=== PATIENT | male | born 1955 | race Caucasian/White ===

== ENCOUNTER → 2016-11-30 | Outpatient (CLI) | payer BC ==
[2016-11-30 10:55] LABS: CH 29.9; CHCM 33.9; HDW 2.77; HGB 14.3 gm/dL (13.0-17.5); MCH 29.5 pg (25.0-35.0); MCHC 33.3 g/dL (31.0-37.0); MCV 88.7 fL (80.0-100.0); Mean Platelet Volume 7.3; RBC 4.85 m/uL (4.30-5.90); RDW 12.8 % (11.5-15.5); WBC 4.1 k/uL (3.8-10.6)
[2016-11-30 11:04] LABS: AST 37 U/L (17-59); Alkaline Phosphatase 65 U/L (38-126); Anion Gap 10 mmol/L; Blood Urea Nitrogen 17 mg/dL (9-20); Carbon Dioxide 26 mmol/L (22-30); Chloride 104 mmol/L (98-107); Cholesterol 149 mg/dL (<200); Glucose 111 mg/dL (74-99); HDL Cholesterol 45 mg/dL (40-60); Non-African American GFR(MDRD) >60 (>60 ml/min/1.73 sqM); Potassium 5.1 mmol/L (3.5-5.1); Sodium 140 mmol/L (137-145); Total Bilirubin 0.7 mg/dL (0.2-1.3); Total Protein 7.7 g/dL (6.3-8.2); Triglycerides 90 mg/dL (<150)
[2016-11-30 11:08] LABS: ALT 56 U/L (21-72)
[2016-11-30 11:47] LABS: Hepatitis C Virus IgG Index 0.01
[2016-11-30 11:48] LABS: Hepatitis C Virus IgG Ab Negative (Negative)
[2016-11-30 12:45] LABS: Prostate Specific Antigen <0.06 ng/mL (0.00-4.00)
[2016-11-30 19:32] LABS: Magnesium 1.9 mg/dL (1.6-2.3)
== END | disposition home or self-care (01) ==
LOC: LABWHC1 09:51
PROVIDERS: ATTEND Family Medicine
DX: I48.0 Paroxysmal atrial fibrillation (principal); Z51.81 Encounter for therapeutic drug level monitoring
CPT/HCPCS: 36415; 80053; 80061; 83735; 84153; 85027; 86803

== ENCOUNTER → 2017-08-15 | Outpatient (CLI) | payer BC ==
[2017-08-15 17:30] LABS: Anion Gap 10 mmol/L; Blood Urea Nitrogen 20 mg/dL (9-20); Calcium 9.3 mg/dL (8.4-10.2); Carbon Dioxide 25 mmol/L (22-30); Chloride 105 mmol/L (98-107); Glucose 87 mg/dL (74-99); Magnesium 2.1 mg/dL (1.6-2.3); Non-African American GFR(MDRD) >60 (>60 ml/min/1.73 sqM); Potassium 4.9 mmol/L (3.5-5.1); Sodium 140 mmol/L (137-145)
== END | disposition home or self-care (01) ==
LOC: LABWHC1 16:31
PROVIDERS: ATTEND Internal Medicine Clinical Cardiac Electrophysiology
DX: I48.91 Unspecified atrial fibrillation (principal); I10 Essential (primary) hypertension; Z79.899 Other long term (current) drug therapy
CPT/HCPCS: 36415; 80048; 83735

== ENCOUNTER → 2018-01-07 | Outpatient (CLI) | payer BC ==
[2018-01-07 09:13] LABS: HCT 44.3 % (39.0-53.0); HGB 14.5 gm/dL (13.0-17.5); MCH 28.8 pg (25.0-35.0); MCHC 32.7 g/dL (31.0-37.0); Mean Platelet Volume 6.9; Platelet Count 168 k/uL (150-450); RBC 5.03 m/uL (4.30-5.90); WBC 4.8 k/uL (3.8-10.6)
[2018-01-07 10:26] LABS: Prostate Specific Antigen <0.10 ng/mL (0.00-4.00)
[2018-01-07 10:43] LABS: ALT 22 U/L (21-72); AST 29 U/L (17-59); Albumin 4.6 g/dL (3.5-5.0); Alkaline Phosphatase 53 U/L (38-126); Anion Gap 13 mmol/L; Blood Urea Nitrogen 18 mg/dL (9-20); Calcium 10.3 mg/dL (8.4-10.2); Carbon Dioxide 27 mmol/L (22-30); Chloride 103 mmol/L (98-107); Cholesterol 112 mg/dL (<200); Glucose 109 mg/dL (74-99); HDL Cholesterol 42 mg/dL (40-60); LDL Cholesterol,Calculated 54 mg/dL (0-99); Potassium 5.2 mmol/L (3.5-5.1); Sodium 143 mmol/L (137-145); Total Bilirubin 0.7 mg/dL (0.2-1.3); Total Protein 7.6 g/dL (6.3-8.2); Triglycerides 82 mg/dL (<150)
== END ==
LOC: LABWHC1 08:42
PROVIDERS: ATTEND Family Medicine
DX: Z00.01 Encounter for general adult medical examination with abnormal findings (principal); R00.1 Bradycardia, unspecified
CPT/HCPCS: 36415; 80053; 80061; 84153; 84443; 85027

== ENCOUNTER → 2018-08-16 | Outpatient (CLI) | payer BC ==
[2018-08-16 11:07] LABS: ALT 27 U/L (21-72); AST 25 U/L (17-59); Albumin 4.2 g/dL (3.5-5.0); Alkaline Phosphatase 52 U/L (38-126); Anion Gap 7 mmol/L; Blood Urea Nitrogen 23 mg/dL (9-20); Calcium 9.5 mg/dL (8.4-10.2); Carbon Dioxide 27 mmol/L (22-30); Chloride 109 mmol/L (98-107); Cholesterol 92 mg/dL (<200); Glucose 111 mg/dL (74-99); HDL Cholesterol 33 mg/dL (40-60); LDL Cholesterol,Calculated 48 mg/dL (0-99); Potassium 5.2 mmol/L (3.5-5.1); Sodium 143 mmol/L (137-145); Total Bilirubin 0.7 mg/dL (0.2-1.3); Triglycerides 54 mg/dL (<150)
== END | disposition home or self-care (01) ==
LOC: LABWHC1 09:23
PROVIDERS: ATTEND Family Medicine
DX: I48.91 Unspecified atrial fibrillation (principal)
CPT/HCPCS: 36415; 80053; 80061

== ENCOUNTER → 2018-09-25 | Outpatient (CLI) | payer BC ==
--- NOTE | 2018-09-25 20:20 | CONS ---
CONSULTATION DATE OF SERVICE: 09/25/2018 This patient is a 62-year-old gentleman who has [facility] for obstructive sleep apnea-hypopnea syndrome. HISTORY OF PRESENT ILLNESS/SLEEP-WAKE EVALUATION: Patient was diagnosed with obstructive sleep apnea 6 years ago. Since that time he has been on treatment with CPAP every night for the whole night. According to the patient, he does not snore with the CPAP and basically does not wake up from sleep while he is using CPAP. In the morning patient denies any sleepiness. Merrill Sleepiness Scale is 2, which is in normal range. No TV in bedroom. His weight is about 10 pounds up for the last 5 years. I checked his CPAP unit. It showed that the patient is using it every night, 100% of the time. Average usage is 7.1 hours. CPAP pressure is 10 cm of water. The machine is old; no information about apnea-hypopnea index. Merrill Sleepiness Scale is 2. PAST MEDICAL HISTORY: 1. History of atrial fibrillation. Last ablation about 3 years ago. Since that time, patient has been in sinus rhythm with some kind of bradycardia. 2. Hypertension. 3. Acid reflux. 4. Prostate cancer. 5. Osteoarthritis of the hands, back, hips. PAST SURGICAL HISTORY: 1. Back fusion. 2. Neck fusion. 3. Heart ablation. 4. Surgical treatment of prostate cancer. MEDICATIONS: 1. Toprol. 2. Celebrex. 3. Lasix. 4. Pepcid. 5. Tikosyn. 6. Lisinopril. 7. Vytorin. 8. Xarelto. 9. Hydrocodone. 10.Metamucil. 11.Tylenol. SOCIAL HISTORY: Negative for smoking or using alcohol. FAMILY HISTORY: Hypertension, heart problems, hyperlipidemia, snoring. REVIEW OF SYSTEMS: Bradycardia. PHYSICAL EXAMINATION: GENERAL: A pleasant gentleman without distress. VITAL SIGNS: BP 129/75, HR 45, RR 14, height 5 feet 9-1/4 inches, weight 240.4, body mass index 35.5, temperature 97.8, oxygen saturation at room air 97%. HEENT: PERRLA, EOMI. Evaluation of oropharynx showed tongue protrudes midline. Extremely low position of soft palate. NECK: Supple. No JVD. Thyroid is not palpable. Neck measures 17-1/3 inches in circumference. LUNGS: Clear to percussion and to auscultation. Good air exchange. No wheezing or rhonchi. HEART: S1, S2 regular. Bradycardia. ABDOMEN: Obese. EXTREMITIES: No clubbing or cyanosis. RESEARCH STATISTICIAN: Awake, alert, and oriented X3. Cranial nerves 2 to 7 intact. There is no fasciculation or atrophy. noted. No focal deficits observed. IMPRESSION: 1. Obstructive sleep apnea-hypopnea syndrome. Patient has demonstrated 100% compliance with treatment, benefitting from CPAP treatment. CPAP unit is old. 2. History of atrial fibrillation. Last ablation was about 3 years ago. Since that time patient has been in sinus rhythm with recent bradycardia. 3. Hypertension. 4. Acid reflux. 5. History of prostate cancer, treated surgically. 6. Osteoarthritis of hands, back, hips. 7. Status post back fusion and neck fusion. PLAN: 1. Patient will continue to use CPAP equipment every night for the whole night. 2. We will replace his CPAP unit with a new unit which has apnea-hypopnea index. 3. Losing weight. 4. No driving if feeling any sleepiness. Thank you very much for allowing me to participate in the management of your patient. Sincerely, Lenin Medina MD, PhD, FAASM Diplomat of [employer] [facility] [place] [facility] / JOHN PAULN: [id number] /
== END | disposition home or self-care (01) ==
LOC: SLEEP 15:28
PROVIDERS: ATTEND Internal Medicine
DX: G47.33 Obstructive sleep apnea (adult) (pediatric) (principal); I10 Essential (primary) hypertension; K21.9 Gastro-esophageal reflux disease without esophagitis; I48.91 Unspecified atrial fibrillation; M19.042 Primary osteoarthritis, left hand; M19.041 Primary osteoarthritis, right hand; M16.0 Bilateral primary osteoarthritis of hip; M19.90 Unspecified osteoarthritis, unspecified site; Z85.46 Personal history of malignant neoplasm of prostate; Z99.89 Dependence on other enabling machines and devices; Z98.1 Arthrodesis status; Z98.890 Other specified postprocedural states; Z79.01 Long term (current) use of anticoagulants; Z79.1 Long term (current) use of non-steroidal anti-inflammatories (NSAID); Z79.891 Long term (current) use of opiate analgesic; Z79.899 Other long term (current) drug therapy
CPT/HCPCS: 99211

== ENCOUNTER → 2019-03-17 | Outpatient (CLI) | payer MEDICARE ==
[2019-03-17 11:08] LABS: ALT 28 U/L (21-72); AST 24 U/L (17-59); Albumin 4.8 g/dL (3.5-5.0); Alkaline Phosphatase 91 U/L (38-126); Anion Gap 8 mmol/L; Blood Urea Nitrogen 18 mg/dL (9-20); Calcium 10.7 mg/dL (8.4-10.2); Carbon Dioxide 29 mmol/L (22-30); Chloride 104 mmol/L (98-107); Glucose 116 mg/dL (74-99); HCT 42.4 % (39.0-53.0); HGB 13.7 gm/dL (13.0-17.5); MCH 28.2 pg (25.0-35.0); MCHC 32.3 g/dL (31.0-37.0); MCV 87.2 fL (80.0-100.0); Mean Platelet Volume 6.8; Platelet Count 251 k/uL (150-450); Potassium 5.5 mmol/L (3.5-5.1); RBC 4.86 m/uL (4.30-5.90); RDW 13.3 % (11.5-15.5); Sodium 141 mmol/L (137-145); Total Bilirubin 0.6 mg/dL (0.2-1.3); WBC 5.2 k/uL (3.8-10.6)
[2019-03-17 11:13] LABS: INR 1.1 (<1.2); Partial Thromboplastin Time 27.8 sec (22.0-30.0); Prothrombin Time 11.2 sec (9.0-12.0)
== END | disposition home or self-care (01) ==
LOC: LABPAT 09:52
PROVIDERS: ATTEND Orthopaedic Surgery
DX: Z01.812 Encounter for preprocedural laboratory examination (principal); M16.11 Unilateral primary osteoarthritis, right hip
CPT/HCPCS: 80053; 85027; 85610; 85730; 87070

== ENCOUNTER → 2019-03-17 | Outpatient (CLI) | payer BC, MEDICARE ==
[2019-03-17 16:08] LABS: LDL Cholesterol,Calculated 52.4 mg/dL (0.0-131.0); Magnesium 2.1 mg/dL (1.5-2.4); VLDL Calculation 15.6 mg/dL (5.00-40.00)
== END | disposition home or self-care (01) ==
LOC: LABWHC1 09:45
PROVIDERS: ATTEND Nurse Practitioner Adult Health
DX: Z00.01 Encounter for general adult medical examination with abnormal findings (principal); E66.3 Overweight; N40.1 Benign prostatic hyperplasia with lower urinary tract symptoms; I48.1 Persistent atrial fibrillation; Z51.81 Encounter for therapeutic drug level monitoring
CPT/HCPCS: 36415; 80061; 83735; 84153

== ENCOUNTER 2019-03-19 22:24 | Inpatient (IN) | payer MEDICARE ==
[2019-03-19] MEDS ORDERED: ASPIRIN 81 MG PO STA (22:54)
[2019-03-19] MEDS ORDERED: MORPHINE SULFATE 2 MG/ML SYRINGE IVP STA (22:55)
[2019-03-19] MEDS ORDERED: METOPROLOL TARTRATE 5 MG/5 ML VIAL IVP STA (22:57)
--- NOTE | 2019-03-19 22:57 | ED ---
General Adult HPI - General Chief complaint: Chest Pain Stated complaint: Chest pain Time Seen by Provider: 03/19/19 22:42 Source: patient Mode of arrival: ambulatory Limitations: no limitations - History of Present Illness Initial comments: Dictation was produced using [employer] dictation software. please excuse any grammatical, word or spelling errors. Chief Complaint: 61-year-old male past mental history of A. fib, CVA, prostate disease presents with palpitations. History of Present Illness: 63-year-old male. He is in his usual state of health when he was sitting on the couch after dinner. He immediately noted palp itations. She has had history of A. fib for the last several months. Patient took a Toprol. 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 Patient does take Xarelto. She also reports some mild chest pressure. Reports that it substernal without radiation to the shoulders or arms. Denies any radiation to the jaws. Denies any pleuritic chest pain. Denies any lower extremity pain. Patient does report having chronic right hip pain that he is indicated total hip replacement for later this month. The ROS documented in this emergency department record has been reviewed and confirmed by me. Those systems with pertinent positive or negative responses have been documented in the HPI. All other systems are other negative and/or noncontributory. PHYSICAL EXAM: General Impression: Alert and oriented x3, not in acute distress HEENT: Normocephalic atraumatic, extra-ocular movements intact, pupils equal and reactive to light bilaterally, mucous membranes moist. Cardiovascular: Irregularly irregular Chest: Lungs clear to auscultation bilaterally, no rhonchi, no wheeze, no rales Abdomen: Bowel sounds present, abdomen soft, non-tender, non-distended, no organomegaly Musculoskeletal: Pulses present and equal in all extremities, no peripheral edema Motor: no focal deficits noted Neurological: CN II-XII grossly intact, no focal motor or sensory deficits noted Skin: Intact with no visualized rashes Psych: Normal affect and mood ED course: 63 Male presents chief complaint of palpitations. He has a history of A. fib. Vital signs upon arrival shows heart rate of 126, rest of vital signs within acceptable limits. Laboratory evaluation obtained. CBC, coag panel unremarkable. Metabolic panel is unremarkable. Cardiac enzymes negative. Prematurity peptide is negative. Chest x-ray shows mild cardiomegaly however mainly nonacute. Patient is reevaluated after given IV metoprolol push. Patient states he took by mouth metoprolol prior to coming to the emergency department. Patient's rate is improved with a rate in the 100s to 110s. She given another by mouth dose of metoprolol. Patient cut presentation consistent with atrial fibrillation rapid ventricular rate. At this point is unclear what is causing patient to go and rapid ventricular rate. Likely is multifactorial. Patient reports she has not had an echocardiogram in around 2 years. Patient to be admitted to cardiac telemetry with cardiology on consultation. Discussed patient case in detail with Dr. Vijay yen. He did not agree that patient absolutely needed to be admitted to the hospital. He requested I talk to cardiology before placing any sort of admission orders. Discussed patient case with Dr. Mayorga who is on-call for cardiology group recommends that patient be started on Cardizem drip and they will see him in the morning tomorrow. Patient to be admitted. Cardizem d rip ordered. EKG interpretation: Ventricular rate 120, A. fib with rapid ventricular rate, care is 82, QTc 557. No VA prolongation, no ST or T-wave changes noted. - Related Data Home Medications Medication Instructions Recorded Confirmed Celecoxib [CeleBREX] 200 mg PO BID 01/24/15 03/19/19 Ezetimibe/Simvastatin [Vytorin 1 tab PO HS 01/24/15 03/19/19 10-40 mg Tablet] Famotidine [Pepcid] 20 mg PO HS 01/24/15 03/19/19 Furosemide [Lasix] 20 mg PO DAILY 01/24/15 03/19/19 HYDROcodone/APAP 7.5-325MG [[place] 2 tab PO TID PRN 01/24/15 03/19/19 7.5-325] Rivaroxaban [Xarelto] 20 mg PO AC-SUPPER 01/24/15 03/19/19 Hypromellose [Artificial Tears] 1 drop BOTH EYES DAILY PRN 03/21/15 03/19/19 [place]-3 Fatty Acids/Fish Oil [Fish 1 cap PO DAILY 03/21/15 03/19/19 Oil 1,000 mg Softgel] Psyllium Husk 100% [Metamucil 6 gm PO DAILY 03/21/15 03/19/19 Packet] Acetaminophen [Tylenol] 500 mg PO BID PRN 06/24/15 03/19/19 Magnesium Chloride [Slow-Mag] 64 mg PO HS 01/09/16 03/19/19 Cyanocobalamin (Vitamin B-12) 2,000 mcg PO DAILY 03/19/19 03/19/19 [Vitamin B-12] Enalapril [Vasotec] 10 mg PO DAILY 03/19/19 03/19/19 Previous Rx's Medication Instructions Recorded Dofetilide [Tikosyn] 125 mcg PO Q12HR #90 cap 07/02/15 Allergies Allergy/AdvReac Type Severity Reaction Status Date / Time amiodarone AdvReac muscle Verified 03/19/19 22:43 tremors flecainide AdvReac bradycardia Verified 03/19/19 22:43 Review of Systems ROS Statement: Those systems with pertinent positive or pertinent negative responses have been documented in the HPI. ROS Other: All systems not noted in ROS Statement are negative. Past Medical History Past Medical History: Atrial Fibrillation, Cancer, CVA/TIA, Hypertension, Osteoarthritis (OA), Prostate Disorder, Sleep Apnea/CPAP/BIPAP Additional Past Medical History / Comment(s): SEE H & P FOR CARDIOVASCULAR NOTES PROVIDED BY DR. BATES. MRI SHOWED MINI STROKE HAS SEVERE HEARING LOSS LT EAR 2012,USE CPAP,PROSTATE CA-NO RAD OR CHEM. History of Any Multi-Drug Resistant Organisms: None Reported Past Surgical History: Back Surgery, Cardiac Ablation, Hernia Repair, Prostate Surgery Additional Past Surgical History / Comment(s): CERVICAL -FUSION C-3-C-7,RIGHT ELBOW, CARPAL TUNNEL, INGUINAL HERNIA , AND LOWER BACK FUSION. CARDIOVERSION IN JANUARY 2015. 06-28-15 CARDIAC ABLATION AND CARDIOVERSION(FOR AFIB), CARDIOVERSION,PROSTATECOMY 2007 Past Anesthesia/Blood Transfusion Reactions: Postoperative Nausea & Vomiting (PONV) Past Psychological History: No Psychological Hx Reported Smoking Status: Never smoker Past Alcohol Use History: None Reported Past Drug Use History: None Reported - Past Family History Father Family Medical History: Cancer Additional Family Medical History / Comment(s): LUNG CANCER Mother Family Medical History: Hypertension Additional Family Medical History / Comment(s): ENLARGED HEART General Exam Limitations: no limitations Course Vital Signs 03/19/19 03/19/19 22:27 23:32 Temperature 98.3 F Pulse Rate 126 H 125 H Respiratory 20 18 Rate Blood Pressure 185/99 160/107 O2 Sat by Pulse 97 97 Oximetry Medical Decision Making - Lab Data Result diagrams: 03/19/19 22:52 03/19/19 22:52 Lab Results 03/19/19 03/19/19 03/19/19 Range/Units 22:52 22:52 22:52 WBC 5.2 (3.8-10.6) k/uL RBC 5.02 (4.30-5.90) m/uL Hgb 14.6 (13.0-17.5) gm/dL Hct 43.9 (39.0-53.0) % MCV 87.5 (80.0-100.0) fL MCH 29.1 (25.0-35.0) pg MCHC 33.2 (31.0-37.0) g/dL RDW 12.9 (11.5-15.5) % Plt Count 217 (150-450) k/uL Neutrophils % 55 % Lymphocytes % 30 % Monocytes % 9 % Eosinophils % 3 % Basophils % 1 % Neutrophils # 2.9 (1.3-7.7) k/uL Lymphocytes # 1.5 (1.0-4.8) k/uL Monocytes # 0.5 (0-1.0) k/uL Eosinophils # 0.2 (0-0.7) k/uL Basophils # 0.0 (0-0.2) k/uL PT (9.0-12.0) sec INR (<1.2) APTT (22.0-30.0) sec Sodium 139 (137-145) mmol/L Potassium 4.1 (3.5-5.1) mmol/L Chloride 102 (98-107) mmol/L Carbon Dioxide 25 (22-30) mmol/L Anion Gap 12 mmol/L BUN 19 (9-20) mg/dL Creatinine 0.99 (0.66-1.25) mg/dL Est GFR (CKD-EPI)AfAm >90 (>60 ml/min/1.73 sqM) Est GFR (CKD-EPI)NonAf 81 (>60 ml/min/1.73 sqM) Glucose 180 H (74-99) mg/dL Calcium 10.3 H (8.4-10.2) mg/dL Magnesium 1.8 (1.6-2.3) mg/dL Total Bilirubin 0.7 (0.2-1.3) mg/dL AST 25 (17-59) U/L ALT 22 (21-72) U/L Alkaline Phosphatase 104 (38-126) U/L Troponin I (0.000-0.034) ng/mL NT-Pro-B Natriuret Pep 52 pg/mL Total Protein 8.3 H (6.3-8.2) g/dL Albumin 4.9 (3.5-5.0) g/dL 03/19/19 03/19/19 Range/Units 22:52 22:52 WBC (3.8-10.6) k/uL RBC (4.30-5.90) m/uL Hgb (13.0-17.5) gm/dL Hct (39.0-53.0) % MCV (80.0-100.0) fL MCH (25.0-35.0) pg MCHC (31.0-37.0) g/dL RDW (11.5-15.5) % Plt Count (150-450) k/uL Neutrophils % % Lymphocytes % % Monocytes % % Eosinophils % % Basophils % % Neutrophils # (1.3-7.7) k/uL Lymphocytes # (1.0-4.8) k/uL Monocytes # (0-1.0) k/uL Eosinophils # (0-0.7) k/uL Basophils # (0-0.2) k/uL PT 12.7 H (9.0-12.0) sec INR 1.2 H (<1.2) APTT 32.8 H (22.0-30.0) sec Sodium (137-145) mmol/L Potassium (3.5-5.1) mmol/L Chloride (98-107) mmol/L Carbon Dioxide (22-30) mmol/L Anion Gap mmol/L BUN (9-20) mg/dL Creatinine (0.66-1.25) mg/dL Est GFR (CKD-EPI)AfAm (>60 ml/min/1.73 sqM) Est GFR (CKD-EPI)NonAf (>60 ml/min/1.73 sqM) Glucose (74-99) mg/dL Calcium (8.4-10.2) mg/dL Magnesium (1.6-2.3) mg/dL Total Bilirubin (0.2-1.3) mg/dL AST (17-59) U/L ALT (21-72) U/L Alkaline Phosphatase (38-126) U/L Troponin I <0.012 (0.000-0.034) ng/mL NT-Pro-B Natriuret Pep pg/mL Total Protein (6.3-8.2) g/dL Albumin (3.5-5.0) g/dL Disposition Clinical Impression: Atrial fibrillation with RVR Disposition: ADMITTED IP TO THIS HOSP Condition: Fair Referrals: Rui Akhtar MD [Primary Care Provider] - 1-2 days Decision Time: 00:50
[2019-03-19] MEDS ORDERED: SODIUM CHLORIDE 0.9% 500 ML IV STA (22:58)
[2019-03-19 23:11] LABS: Basophils % (A) 1 %; Eosinophils # (A) 0.2 k/uL (0-0.7); Eosinophils % (A) 3 %; HCT 43.9 % (39.0-53.0); HGB 14.6 gm/dL (13.0-17.5); Lymphocytes # (A) 1.5 k/uL (1.0-4.8); Lymphocytes % (A) 30 %; MCH 29.1 pg (25.0-35.0); MCHC 33.2 g/dL (31.0-37.0); MCV 87.5 fL (80.0-100.0); Mean Platelet Volume 6.3; Monocytes # (A) 0.5 k/uL (0-1.0); Monocytes % (A) 9 %; Neutrophils # (A) 2.9 k/uL (1.3-7.7); Neutrophils % (A) 55 %; Platelet Count 217 k/uL (150-450); RBC 5.02 m/uL (4.30-5.90); RDW 12.9 % (11.5-15.5); WBC 5.2 k/uL (3.8-10.6)
[2019-03-19 23:23] LABS: ALT 22 U/L (21-72); AST 25 U/L (17-59); Albumin 4.9 g/dL (3.5-5.0); Alkaline Phosphatase 104 U/L (38-126); Anion Gap 12 mmol/L; Blood Urea Nitrogen 19 mg/dL (9-20); Calcium 10.3 mg/dL (8.4-10.2); Carbon Dioxide 25 mmol/L (22-30); Chloride 102 mmol/L (98-107); Glucose 180 mg/dL (74-99); Magnesium 1.8 mg/dL (1.6-2.3); Potassium 4.1 mmol/L (3.5-5.1); Sodium 139 mmol/L (137-145); Total Bilirubin 0.7 mg/dL (0.2-1.3); Total Protein 8.3 g/dL (6.3-8.2)
[2019-03-19 23:31] LABS: INR 1.2 (<1.2); Partial Thromboplastin Time 32.8 sec (22.0-30.0); Prothrombin Time 12.7 sec (9.0-12.0)
--- NOTE | 2019-03-20 00:11 | XR ---
EXAM: XR Chest, 2 Views CLINICAL HISTORY: ITS.REASON XR Reason: Chest Pain TECHNIQUE: Frontal and lateral views of the chest. COMPARISON: No relevant prior studies available. FINDINGS: Lungs: No consolidation. Pleural space: Unremarkable. No pneumothorax. Heart: Mild cardiomegaly. Mediastinum: Unremarkable. Bones/joints: Cervical spinal fusion hardware. IMPRESSION: Mild cardiomegaly. No overt edema.
[2019-03-20] MEDS ORDERED: METOPROLOL TARTRATE 50 MG TAB PO STA (00:31)
[2019-03-20] MEDS ORDERED: LIDOCAINE 5% PATCH TOPICAL STA (00:33)
[2019-03-20] MEDS ORDERED: ACETAMINOPHEN TAB 500 MG TAB PO PRN (01:44)
[2019-03-20] MEDS ORDERED: ARTIFICIAL TEARS-HYPROMELLOSE DROPS 15 ML BTL BOTH EYES PRN (01:44)
[2019-03-20] MEDS: HYDROcodone/APAP 7.5-325MG 1 EACH TAB PO PRN ×3 (01:53→19:49)
--- NOTE | 2019-03-20 05:22 | P.HPIM ---
History of Present Illness H&P Date: 03/20/19 Chief Complaint: chest pain and palpitations The patient is a 63-year-old male with a past medical history of atrial fibrillation status post several ablations currently on anticoagulation with Xarelto, obstructive sleep apnea, essential hypertension and osteoarthritis who presents to the ER via private vehicle with chief complaint of chest pain. Apparently the patient began having palpitations earlier this evening and subsequently began having nonexertional nonradiating substernal moderate chest pressure described as squeezing with some associated diaphoresis, he denies any nausea vomiting or abdominal pain. The patient reports being followed by Dr. 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 The patient has been having severe right hip pain and is taking [place] and Tylenol with minimal relief, he seems to think that his pain may have triggered his A. fib. The patient reports he is scheduled to have a total hip replacement by Dr. Bernardo here this month In the ER the patient had a comprehensive workup of, EKG showed A. fib with a ventricular rate of 120, troponin was negative less than 0.012, NT proBNP was also negative at 52. Chest x-ray showed mild cardiomegaly. The patient is given a dose of metoprolol and started on diltiazem drip and recommended for admission Past Medical History Past Medical History: Atrial Fibrillation, Cancer, CVA/TIA, Hypertension, Osteoarthritis (OA), Prostate Disorder, Sleep Apnea/CPAP/BIPAP Additional Past Medical History / Comment(s): SEE H & P FOR CARDIOVASCULAR NOTES PROVIDED BY DR. FAGAN. MRI SHOWED MINI STROKE HAS SEVERE HEARING LOSS LT EAR 2012,USE CPAP,PROSTATE CA-NO RAD OR CHEM. History of Any Multi-Drug Resistant Organisms: None Reported Past Surgical History: Back Surgery, Cardiac Ablation, Hernia Repair, Prostate Surgery Additional Past Surgical History / Comment(s): CERVICAL -FUSION C-3-C-7,RIGHT ELBOW, CARPAL TUNNEL, INGUINAL HERNIA , AND LOWER BACK FUSION. CARDIOVERSION IN JANUARY 2015. 06-28-15 CARDIAC ABLATION AND CARDIOVERSION(FOR AFIB), CARDIOVERSION,PROSTATECOMY 2007 Past Anesthesia/Blood Transfusion Reactions: Postoperative Nausea & Vomiting (PONV) Past Psychological History: No Psychological Hx Reported Smoking Status: Never smoker Past Alcohol Use History: None Reported Past Drug Use History: None Reported - Past Family History Father Family Medical History: Cancer Additional Family Medical History / Comment(s): LUNG CANCER Mother Family Medical History: Hypertension Additional Family Medical History / Comment(s): ENLARGED HEART Medications and Allergies Home Medications Medication Instructions Recorded Confirmed Type Celecoxib [CeleBREX] 200 mg PO BID 01/24/15 03/19/19 History Ezetimibe/Simvastatin [Vytorin 1 tab PO HS 01/24/15 03/19/19 History 10-40 mg Tablet] Famotidine [Pepcid] 20 mg PO HS 01/24/15 03/19/19 History Furosemide [Lasix] 20 mg PO DAILY 01/24/15 03/19/19 History HYDROcodone/APAP 7.5-325MG [[place] 2 tab PO TID PRN 01/24/15 03/19/19 History 7.5-325] Rivaroxaban [Xarelto] 20 mg PO AC-SUPPER 01/24/15 03/19/19 History Hypromellose [Artificial Tears] 1 drop BOTH EYES DAILY PRN 03/21/15 03/19/19 History [place]-3 Fatty Acids/Fish Oil [Fish 1 cap PO DAILY 03/21/15 03/19/19 History Oil 1,000 mg Softgel] Psyllium Husk 100% [Metamucil 6 gm PO DAILY 03/21/15 03/19/19 History Packet] Acetaminophen [Tylenol] 500 mg PO BID PRN 06/24/15 03/19/19 History Dofetilide [Tikosyn] 125 mcg PO Q12HR #90 cap 07/02/15 03/19/19 Rx Magnesium Chloride [Slow-Mag] 64 mg PO HS 01/09/16 03/19/19 History Cyanocobalamin (Vitamin B-12) 2,000 mcg PO DAILY 03/19/19 03/19/19 History [Vitamin B-12] Enalapril [Vasotec] 10 mg PO DAILY 03/19/19 03/19/19 History Allergies Allergy/AdvReac Type Severity Reaction Status Date / Time amiodarone AdvReac muscle Verified 03/19/19 22:43 tremors flecainide AdvReac bradycardia Verified 03/19/19 22:43 Physical Exam Vitals: Vital Signs Temp Pulse Resp BP Pulse Ox 03/20/19 03:00 78 16 135/90 100 03/20/19 01:44 79 03/20/19 01:00 92 16 136/97 100 03/19/19 23:32 125 H 18 160/107 97 03/19/19 22:27 98.3 F 126 H 20 185/99 97 Intake and Output 03/19/19 03/19/19 03/20/19 14:59 22:59 06:59 Other: Weight 106.594 kg Constitutional: No acute distress, conversant, pleasant Eyes: Anicteric sclerae, moist conjunctiva, no lid-lag, PERRLA ENMT: NC/AT,Oropharynx clear, no erythema, exudates Neck:Supple, FROM, no masses, or JVD, No carotid bruits; No thyromegaly Lungs: Clear to auscultation, Clear to percussion, Normal respiratory effort, no accessory muscle use Cardiovascular: Heart regular in rate and rhythm, No murmurs, gallops, or rubs no peripheral edema Abdominal: Soft Nontender, nom distended, no guarding, no rebound or rigidity, Normoactive bowel sounds No hepatomegaly, No splenomegaly, No palpable mass No abdominal wall hernia noted Skin: Normal temperature, tone, texture, turgor, No induration No subcutaneous nodules, No rash, lesions, No ulcers Extremities:No digital cyanosis No clubbing, Pedal pulses intact and symmetrical Radial pulses intact and symmetrical Normal gait and station, No calf tenderness Psychiatric: Alert and oriented to person, place and time, Appropriate affect Intact judgement Neuro: Muscles Strength 5/5 in all 4 extremities, Sensation to light touch grossly present throughout, Cranial nerves II-XII grossly intact. No focal sensory deficits Results CBC & Chem 7: 03/19/19 22:52 03/19/19 22:52 Labs: Abnormal Lab Results - Last 24 Hours (Table) 03/19/19 03/19/19 Range/Units 22:52 22:52 PT 12.7 H (9.0-12.0) sec INR 1.2 H (<1.2) APTT 32.8 H (22.0-30.0) sec Glucose 180 H (74-99) mg/dL Calcium 10.3 H (8.4-10.2) mg/dL Total Protein 8.3 H (6.3-8.2) g/dL Assessment and Plan (1) Atrial fibrillation with RVR Current Visit: Yes Status: Acute Code(s): I48.91 - UNSPECIFIED ATRIAL FIBRILLATION SNOMED Code(s): 099801917514555 (2) Essential hypertension Current Visit: Yes Status: Acute Code(s): I10 - ESSENTIAL (PRIMARY) HYPERTENSION SNOMED Code(s): 51042189 (3) Obstructive sleep apnea Current Visit: Yes Status: Acute Code(s): G47.33 - OBSTRUCTIVE SLEEP APNEA (ADULT) (PEDIATRIC) SNOMED Code(s): 79121281 (4) Hip osteoarthritis Current Visit: Yes Status: Acute Code(s): M16.9 - OSTEOARTHRITIS OF HIP, UNSPECIFIED SNOMED Code(s): 208220631 Plan: The patient is admitted anticipated greater than 2 midnight stay with A. fib with RVR and chest pain, the patient was given a loading dose of beta rory and started on diltiazem drip and it is currently rate controlled. Patient is noted to be hypertensive, will order TSH 2-D echocardiogram Intent to consult cardiology. The patient's EKG is negative for sedation of acute ischemia and his troponin was negative will continue to trend his troponins, chest pain is likely secondary to his A. fib. The patient is noted to have severe right hip pain secondary to his osteoarthritis I will start him on morphine for breakthrough pain. We'll await any recommendations from cardiology and continue to follow his clinical course. CODE STATUS: Full code Discussed plan of care with; patient ER physician Anticipated discharge 1-2 days Prophylaxis: Continue PPI therapy and anticoagulation Time with Patient: Greater than 30
[2019-03-20] MEDS: MORPHINE SULFATE 4 MG/ML SYRINGE IVP PRN (05:59)
[2019-03-20] MEDS: DILTIAZEM 125 MG in SODIUM CHLORIDE 0.9% 100 ML IV SCH ×2 (07:01→17:43)
[2019-03-20] MEDS: LISINOPRIL 20 MG TAB PO SCH (08:51)
[2019-03-20] MEDS: MELOXICAM 7.5 MG TAB PO SCH (08:51)
[2019-03-20] MEDS: DOFETILIDE 125 MCG CAP PO SCH ×2 (08:52→17:23)
[2019-03-20] MEDS: CYANOCOBALAMIN 500 MCG TAB PO SCH (08:52)
[2019-03-20] MEDS: FUROSEMIDE 20 MG TAB PO SCH (08:52)
[2019-03-20] MEDS ORDERED: NON-FORMULARY DRUG (Omega-3 Fatty Acids/Fish Oil [Fish Oil 1,000 Mg Softgel] 1 CAP) PO SCH (09:00)
--- NOTE | 2019-03-20 10:25 | P.CRDCN ---
History of Present Illness Consult date: 03/20/19 Chief complaint: Heart racing History of present illness: This is a pleasant 64-year-old gentleman who sees Dr. Fagan in the office as an outpatient on regular basis with a past medical history significant for paroxysmal atrial fibrillation and status post multiple atrial fibrillation ablation, hypertension, obstructive sleep apnea, presented to the emergency room complaining of heart racing and fluttering as well as chest discomfort. The patient stated that in November 2018, he was found to be bradycardic during a colonoscopy and he was advised to come off the Toprol excelled he was receiving. For the last 24 hours, he has been experiencing episode of heart racing and fluttering and he checked his heart rate at home and that came in to be around 140 beats per minutes. No dizziness or lightheadedness associated with that, and no syncope. On the way to the emergency room with the heart beating racing, he developed chest discomfort, in the mid of the chest, as a pressure on the chest, without any radiation and without any associated symptoms. The EKG showed atrial fibrillation with RVR with differential diagnosis of junctional tachycardia. The first set of troponin came in to be unremarkable and the second set of troponin came in to be slightly abnormal. The chest x-ray did not show any acute abnormalities. The patient continues to be on oral anticoagulation. Past Medical History Past Medical History: Atrial Fibrillation, Cancer, CVA/TIA, Hypertension, Osteoarthritis (OA), Prostate Disorder, Sleep Apnea/CPAP/BIPAP Additional Past Medical History / Comment(s): SEE H & P FOR CARDIOVASCULAR NOTES PROVIDED BY DR. FAGAN. MRI SHOWED MINI STROKE HAS SEVERE HEARING LOSS LT EAR 2012,USE CPAP,PROSTATE CA-NO RAD OR CHEM. History of Any Multi-Drug Resistant Organisms: None Reported Past Surgical History: Back Surgery, Cardiac Ablation, Hernia Repair, Orthopedic Surgery, Prostate Surgery Additional Past Surgical History / Comment(s): CERVICAL -FUSION C-3-C-7,RIGHT ELBOW, CARPAL TUNNEL, INGUINAL HERNIA , AND LOWER BACK FUSION. CARDIOVERSION IN JANUARY 2015. 06-28-15 CARDIAC ABLATION AND CARDIOVERSION(FOR AFIB), CARDIOVERSION,PROSTATECOMY 2007 Past Anesthesia/Blood Transfusion Reactions: Postoperative Nausea & Vomiting (PONV) Past Psychological History: No Psychological Hx Reported Additional Psychological History / Comment(s): PT IS RETIRED. Smoking Status: Never smoker Past Alcohol Use History: None Reported Past Drug Use History: None Reported - Past Family History Father Family Medical History: Cancer Additional Family Medical History / Comment(s): LUNG CANCER Mother Family Medical History: Hypertension Additional Family Medical History / Comment(s): ENLARGED HEART Medications and Allergies Home Medications Medication Instructions Recorded Confirmed Type Celecoxib [CeleBREX] 200 mg PO BID 01/24/15 03/19/19 History Ezetimibe/Simvastatin [Vytorin 1 tab PO HS 01/24/15 03/19/19 History 10-40 mg Tablet] Famotidine [Pepcid] 20 mg PO HS 01/24/15 03/19/19 History Furosemide [Lasix] 20 mg PO DAILY 01/24/15 03/19/19 History HYDROcodone/APAP 7.5-325MG [[place]cles 2 tab PO TID PRN 01/24/15 03/19/19 History 7.5-325] Rivaroxaban [Xarelto] 20 mg PO AC-SUPPER 01/24/15 03/19/19 History Hypromellose [Artificial Tears] 1 drop BOTH EYES DAILY PRN 03/21/15 03/19/19 History Mobile-3 Fatty Acids/Fish Oil [Fish 1 cap PO DAILY 03/21/15 03/19/19 History Oil 1,000 mg Softgel] Psyllium Husk 100% [Metamucil 6 gm PO DAILY 03/21/15 03/19/19 History Packet] Acetaminophen [Tylenol] 500 mg PO BID PRN 06/24/15 03/19/19 History Dofetilide [Tikosyn] 125 mcg PO Q12HR #90 cap 07/02/15 03/19/19 Rx Magnesium Chloride [Slow-Mag] 64 mg PO HS 01/09/16 03/19/19 History Cyanocobalamin (Vitamin B-12) 2,000 mcg PO DAILY 03/19/19 03/19/19 History [Vitamin B-12] Enalapril [Vasotec] 10 mg PO DAILY 03/19/19 03/19/19 History Allergies Allergy/AdvReac Type Severity Reaction Status Date / Time amiodarone AdvReac muscle Verified 03/19/19 22:43 tremors flecainide AdvReac bradycardia Verified 03/19/19 22:43 Physical Exam Vitals: Vital Signs Temp Pulse Pulse Resp BP BP Pulse Ox 03/20/19 07:51 97.8 F 70 18 138/93 98 03/20/19 06:01 68 20 135/70 100 03/20/19 03:00 78 16 135/90 100 03/20/19 01:44 79 03/20/19 01:00 92 16 136/97 100 03/19/19 23:45 125 H 03/19/19 23:32 125 H 18 160/107 97 03/19/19 22:27 98.3 F 126 H 20 185/99 97 Intake and Output 03/19/19 03/20/19 03/20/19 22:59 06:59 14:59 Other: Voiding Method Toilet Weight 106.594 kg - Constitutional General appearance: no acute distress - Respiratory Respiratory: bilateral: CTA - Cardiovascular Rhythm: irregularly irregular Heart sounds: normal: S1, S2 Results 03/19/19 22:52 03/19/19 22:52 Cardiac Enzymes 03/19/19 03/19/19 03/20/19 Range/Units 22:52 22:52 05:38 AST 25 (17-59) U/L Troponin I <0.012 0.055 H* (0.000-0.034) ng/mL Coagulation 03/19/19 Range/Units 22:52 PT 12.7 H (9.0-12.0) sec APTT 32.8 H (22.0-30.0) sec CBC 03/19/19 Range/Units 22:52 WBC 5.2 (3.8-10.6) k/uL RBC 5.02 (4.30-5.90) m/uL Hgb 14.6 (13.0-17.5) gm/dL Hct 43.9 (39.0-53.0) % Plt Count 217 (150-450) k/uL Comprehensive Metabolic Panel 03/19/19 Range/Units 22:52 Sodium 139 (137-145) mmol/L Potassium 4.1 (3.5-5.1) mmol/L Chloride 102 (98-107) mmol/L Carbon Dioxide 25 (22-30) mmol/L BUN 19 (9-20) mg/dL Creatinine 0.99 (0.66-1.25) mg/dL Glucose 180 H (74-99) mg/dL Calcium 10.3 H (8.4-10.2) mg/dL AST 25 (17-59) U/L ALT 22 (21-72) U/L Alkaline Phosphatase 104 (38-126) U/L Total Protein 8.3 H (6.3-8.2) g/dL Albumin 4.9 (3.5-5.0) g/dL Current Medications Generic Name Dose Route Start Last Admin Trade Name Freq PRN Reason Stop Dose Admin Acetaminophen 500 mg 03/20/19 01:44 Tylenol Tab PO BID PRN Pain Hydrocodone Bitart/Acetaminophen 2 each 03/20/19 01:44 03/20/19 09:59 [place] 7.5-325 PO 2 each TID PRN Administration Pain Artificial Tears 1 drops 03/20/19 01:44 Artificial Tear Drops BOTH EYES DAILY PRN Dry Eye(s) Aspirin 325 mg 03/21/19 09:00 Aspirin PO DAILY [facility] Atorvastatin Calcium 20 mg 03/20/19 21:00 Lipitor PO HS [facility] Cyanocobalamin 2,000 mcg 03/20/19 09:00 03/20/19 08:52 Vitamin B-12 PO 2,000 mcg DAILY VIVIANA Administration Dofetilide 125 mcg 03/20/19 09:00 03/20/19 08:52 Tikosyn PO 125 mcg Q12HR VIVIANA Administration Ezetimibe 10 mg 03/20/19 21:00 Zetia PO HS VIVIANA Famotidine 20 mg 03/20/19 21:00 Pepcid PO HS [facility]IANA Furosemide 20 mg 03/20/19 09:00 03/20/19 08:52 Lasix PO 20 mg DAILY VIVIANA Administration Diltiazem HCl 125 mg/ Sodium 125 mls @ 7.5 mls/hr 03/20/19 01:00 03/20/19 07:01 Chloride IV Not Given .[id number] VIVIANA 7.5 MG/HR Lisinopril 20 mg 03/20/19 09:00 03/20/19 08:51 Zestril PO 20 mg DAILY VIVIANA Administration Magnesium Oxide 400 mg 03/20/19 21:00 Mag-Ox PO HS VIVIANA Meloxicam 15 mg 03/20/19 09:00 03/20/19 08:51 Mobic PO 15 mg DAILY VIVIANA Administration Morphine Sulfate 4 mg 03/20/19 05:29 03/20/19 05:59 Morphine Sulfate (Inj) IVP 4 mg Q4HR PRN Administration Pain Rivaroxaban 20 mg 03/20/19 17:30 Xarelto PO AC-SUPPER VIVIANA Intake and Output 03/19/19 03/20/19 03/20/19 22:59 06:59 14:59 Other: Voiding Method Toilet Weight 106.594 kg 03/19/19 22:52 03/19/19 22:52 Assessment and Plan Assessment: Assessment #1 atrial fibrillation with RVR #2 known paroxysmal atrial fibrillation #3 obstructive sleep apnea #4 multiple comorbid conditions Plan #1 continue oral anticoagulation #2 start the patient on Toprol-XL #[address] Fagan to see the patient #4 follow-up with the patient. Thank you for allowing us participate in his care
--- NOTE | 2019-03-20 10:55 | ECHOF ---
Referral Reason:Afib with rvr MEASUREMENTS -------- HEIGHT: 177.8 cm WEIGHT: 106.6 kg BP: 135/70 RVIDd: 3.5 cm (< 3.3) IVSd: 1.6 cm (0.6 - 1.1) LVIDd: 3.8 cm (3.9 - 5.3) LVPWd: 1.5 cm (0.6 - 1.1) IVSs: 2.0 cm LVIDs: 2.6 cm LVPWs: 1.8 cm LA Diam: 3.9 cm (2.7 - 3.8) Ao Diam: 3.7 cm (2.0 - 3.7) AV Cusp: 2.7 cm (1.5 - 2.6) MV EXCURSION: 16.009 mm (> 18.000) MV EF SLOPE: 45 mm/s (70 - 150) EPSS: 0.5 cm RAP: 5.00 mmHg RVSP: 30.43 mmHg FINDINGS -------- Atrial fibrillation. This was a technically difficult study with suboptimal views. The left ventricular size is normal. There is moderate concentric left ventricular hypertrophy. O verall left ventricular systolic function is mildly impaired with, an EF between 45 - 50 %. The right ventricle is mildly enlarged. The left atrial size is normal. The right atrium is normal in size. 5 ml of Lumason was utilized for enhancement of images. Interatrial and interventricular septum intact. There is mild aortic valve sclerosis. Trace to mild aortic regurgitation. Mild mitral annular calcification present. Mild tricuspid regurgitation present. Right ventricular systolic pressure is normal at < 35 mmHg. Trace/mild (physiologic) pulmonic regurgitation. The aortic root size is normal. IVC Not well visulized. The pericardium is normal. CONCLUSIONS -------- 1. Atrial fibrillation. 2. This was a technically difficult study with suboptimal views. 3. The left ventricular size is normal. 4. There is moderate concentric left ventricular hypertrophy. 5. Overall left ventricular systolic function is mildly impaired with, an EF between 45 - 50 %. 6. The right ventricle is mildly enlarged. 7. The left atrial size is normal. 8. The right atrium is normal in size. 9. 5 ml of Lumason was utilized for enhancement of images. 10. Interatrial and interventricular septum intact. 11. There is mild aortic valve sclerosis. 12. Trace to mild aortic regurgitation. 13. Mild mitral annular calcification present. 14. Mild tricuspid regurgitation present. 15. Right ventricular systolic pressure is normal at < 35 mmHg. 16. Trace/mild (physiologic) pulmonic regurgitation. 17. The aortic root size is normal. 18. IVC Not well visulized. 19. The pericardium is normal. SHROUDMAN: Jyoti Caicedo RDCS
[2019-03-20] MEDS ORDERED: CALCIUM CARBONATE 500 MG CHEWABLE PO PRN (15:08)
[2019-03-20] MEDS ORDERED: RIVAROXABAN 20 MG TAB PO SCH (17:30)
[2019-03-20] MEDS ORDERED: EZETIMIBE 10 MG TAB PO SCH (21:00)
[2019-03-20] MEDS ORDERED: MAGNESIUM OXIDE 400 MG TAB PO SCH (21:00)
[2019-03-20] MEDS ORDERED: ATORVASTATIN 20 MG TAB PO SCH (21:00)
[2019-03-20] MEDS ORDERED: FAMOTIDINE 20 MG TAB PO SCH (21:00)
[2019-03-21 02:58] LABS: Cholesterol 120 mg/dL (<200); HDL Cholesterol 37 mg/dL (40-60); LDL Cholesterol,Calculated 45 mg/dL (0-99); Triglycerides 191 mg/dL (<150)
[2019-03-21] MEDS: HYDROcodone/APAP 7.5-325MG 1 EACH TAB PO PRN ×2 (04:01→16:39)
[2019-03-21] MEDS: MELOXICAM 7.5 MG TAB PO SCH (08:55)
[2019-03-21] MEDS: DOFETILIDE 125 MCG CAP PO SCH (08:55)
[2019-03-21] MEDS: CYANOCOBALAMIN 500 MCG TAB PO SCH (08:56)
[2019-03-21] MEDS: LISINOPRIL 20 MG TAB PO SCH (08:56)
[2019-03-21] MEDS: FUROSEMIDE 20 MG TAB PO SCH (08:56)
[2019-03-21] MEDS ORDERED: METOPROLOL SUCCINATE (ER) 25 MG TAB.ER.24H PO SCH (09:00)
[2019-03-21] MEDS ORDERED: ASPIRIN 325 MG TAB PO SCH (09:00)
--- NOTE | 2019-03-21 09:24 | P.PN ---
Subjective Progress Note Date: 03/21/19 Principal diagnosis: Paroxysmal atrial fibrillation This is a pleasant 64-year-old gentleman who sees Dr. Fagan in the office as an outpatient on regular basis with a past medical history significant for paroxysmal atrial fibrillation and status post multiple atrial fibrillation ablation, hypertension, obstructive sleep apnea, presented to the emergency room complaining of heart racing and fluttering as well as chest discomfort. The patient stated that in November 2018, he was found to be bradycardic during a colonoscopy and he was advised to come off the Toprol excelled he was receiving. For the last 24 hours, he has been experiencing episode of heart racing and fluttering and he checked his heart rate at home and that came in to be around 140 beats per minutes. No dizziness or lightheadedness associated with that, and no syncope. On the way to the emergency room with the heart beating racing, he developed chest discomfort, in the mid of the chest, as a pressure on the chest, without any radiation and without any associated symptoms. The EKG showed atrial fibrillation with RVR with differential diagnosis of junctional tachycardia. The first set of troponin came in to be unremarkable and the second set of troponin came in to be slightly abnormal. The chest x-ray did not show any acute abnormalities. The patient continues to be on oral anticoagulation. On follow-up with the patient today, he seems to be feeling overall better. He was started on Toprol-XL yesterday. He has been in and out atrial fibrillation. But even if he is in atrial fibrillation with a heart rate has been controlled. I did tell the patient that he might be able to be discharged home and follow- up with Dr. Fagan this coming to stay. We'll continue monitor the patient for the next few hours. Objective - Vital Signs Vital signs: Vital Signs Temp 98.0 F 03/21/19 04:00 Pulse 93 03/21/19 04:00 Resp 16 03/21/19 04:00 BP 118/63 03/21/19 04:00 Pulse Ox 97 03/21/19 04:00 Intake & Output 03/20/19 03/21/19 03/21/19 18:59 06:59 18:59 Intake Total 240 600 120 Balance 240 600 120 Weight 103.1 kg Intake: Oral 240 600 120 Other: Voiding Method Toilet Toilet # Voids 1 - Constitutional General appearance: Present: no acute distress - Respiratory Respiratory: bilateral: diminished - Cardiovascular Rhythm: irregularly irregular - Labs CBC & Chem 7: 03/19/19 22:52 03/19/19 22:52 Labs: Abnormal Lab Results - Last 24 Hours (Table) 03/19/19 03/20/19 Range/Units 22:52 11:52 Troponin I 0.039 H* (0.000-0.034) ng/mL Triglycerides 191 H (<150) mg/dL HDL Cholesterol 37 L (40-60) mg/dL Assessment and Plan Assessment: Assessment #1 atrial fibrillation with RVR #2 known paroxysmal atrial fibrillation #3 obstructive sleep apnea #4 multiple comorbid conditions Plan #1 continue oral anticoagulation #2 continue Toprol-XL #3 possible discharge home later on today Thank you for allowing us participate in his care
[2019-03-21] MEDS: DILTIAZEM 125 MG in SODIUM CHLORIDE 0.9% 100 ML IV SCH (10:21)
[2019-03-21 11:31] VITALS: BP 116/82; PULSE 98; RESP 16; TEMP 98.2
[2019-03-21] MEDS: MORPHINE SULFATE 4 MG/ML SYRINGE IVP PRN (13:49)
--- NOTE | 2019-03-22 23:05 | DS ---
DISCHARGE SUMMARY DATE OF ADMISSION: 03/19/2019. DATE OF DISCHARGE: 03/21/2019. FINAL DIAGNOSES: 1. Persistent atrial flutter fibrillation, recurrent, with rapid ventricular rate. 2. Obesity BMI 32.6. 3. Essential hypertension. 4. Primary osteoarthritis. 5. Obstructive sleep apnea, uses CPAP. HOSPITAL COURSE: This patient has had prior ablations, presented with atrial flutter fibrillation, rapid rate, and episodes of chest pressure. The patient is put back on Tikosyn and also beta rory. Symptoms much better control. Heart rate is better controlled. The patient is up and around. Discussed the care with the patient and his . Also discussed with Dr. Duvall. The patient is due to follow up with Dr. Fagan as an outpatient. Doing better. On examination, temperature 98.2, pulse 98, respirations 16, blood pressure 160/82, pulse ox 98% on room air. A 2D echo showed EF of 45-50 percent. Lungs fair entry. Heart sounds irregular. BUN and creatinine normal. Patient's troponin was less than 0.012, 0.055 and 0.039. The patient has not had a cardiac cath, may need that as an outpatient. The patient follows with Dr. Fagan, we will have the patient follow up with the same. Discussion and discharge planning more than 35 minutes. TSH normal. DISCHARGE MEDICATIONS: 1. Celebrex 200 mg b.i.d. 2. Vicodin 10/40 one tab p.o. at bedtime. 3. Pepcid 20 mg p.o. at bedtime. 4. Lasix 20 mg p.o. daily. 5. [place] 7.5 two tablets t.i.d. p.r.n. 6. Xarelto 20 mg with supper. 7. Artificial Tears 1 drop both eyes daily p.r.n. 8. Fish oil 1 capsule p.o. daily. 9. Metamucil 6 grams p.o. daily. 10.Tylenol. 11.Tikosyn 125 mcg every 12 hours. 12.Slow-Mag 64 mg at bedtime. 13.Vitamin B12, 2000 mcg p.o. daily. 14.Vasotec 10 mg p.o. daily. 15.Toprol-XL 25 mg p.o. daily. FOLLOWUP: 1. Follow up with Dr. Fagan in 3 days. 2. Follow up with Dr. Akhtar in 3 to 5 days. 3. Follow up with Dr. Duvall on March 30, 2019. Discussion and discharge planning more than 35 minutes. MMODL / IJN: [id number] /
--- NOTE | 2019-03-24 09:57 | CDI ---
Documentation Clarification Form Date: 03/24/19 From: Mireya Harmon Phone: If questions call Renee Thomas @ [phone], Hours-8:30 am & 5 pm M- F Admit Date: 03/20/2019 12:37:00 AM Patient Name: Chau Howard Visit Number: [id number] Discharge Date: 03/21/2019 5:42:00 PM ATTENTION: The Clinical Documentation Specialists (CDI) and [facility] Coding Staff appreciate your assistance in clarifying documentation. Please respond to the clarification below the line at the bottom and electronically sign. The CDI & [facility] Coding staff will review the response and follow-up if needed. Please note: Queries are made part of the Legal Health Record. If you have any questions, please contact the author of this message via ITS. Dr. Benson Copeland Atrial Flutter is documented in the discharge summary. History/Risk factors: paroxysmal atrial fibrillation EKG/telemetry: ventricular rate 128, A. fib with rapid ventricular rate, care is 82, QTc 557 (per ED) Treatment: Tikosyn and beta rory Consults: cardiology for paroxysmal atrial fib no mention of atrial flutter In your professional opinion, in order to capture the severity of condition; can you please clarify the type of Atrial Flutter if known? Typical/Type I Atypical/Type II Other, please specify Unable to determine unable to determine MTDD
--- NOTE | 2019-03-24 10:03 | CDI ---
Documentation Clarification Form Date: 03/24/2019 From: Mireya Harmon Phone: If questions call Renee Thomas @ [phone], Hours-8:30 am & 5 pm M- F Admit Date: 03/20/2019 12:37:00 AM Patient Name: Chau Howard Visit Number: [id number] Discharge Date: 03/21/2019 5:42:00 PM ATTENTION: The Clinical Documentation Specialists (CDI) and [facility] Coding Staff appreciate your assistance in clarifying documentation. Please respond to the clarification below the line at the bottom and electronically sign. The CDI & [facility] Coding staff will review the response and follow-up if needed. Please note: Queries are made part of the Legal Health Record. If you have any questions, please contact the author of this message via ITS. Dr. Benson Copeland Conflicting documentation has been found in the medical record: Dr Duvall states atrial fibrillation is paroxysmal. You stated that it is persistent in your DS. EKG/telemetry: ventricular rate 128, A. fib with rapid ventricular rate, care is 82, QTc 557 (per ED) Treatment: Tikosyn and beta rory In your opinion, what is the most clinically appropriate diagnosis for this patient? Persistent atrial fibrillation Paroxysmal atrial fibrillation Other explanation of clinical findings Unable to determine (no explanation for clinical findings) addressed my d summary. MTDD
== END 2019-03-21 17:42 | disposition home or self-care (01) | DRG 310 ==
LOC: EC 22:24 → 3SCARD 03-20 00:37
PROVIDERS: ADMIT Hospitalist; ATTEND Hospitalist
DX: I48.1 Persistent atrial fibrillation (principal); I11.9 Hypertensive heart disease without heart failure; I48.92 Unspecified atrial flutter; G47.33 Obstructive sleep apnea (adult) (pediatric); G89.29 Other chronic pain; M16.11 Unilateral primary osteoarthritis, right hip; H91.92 Unspecified hearing loss, left ear; E66.9 Obesity, unspecified; Z68.32 Body mass index [BMI] 32.0-32.9, adult; Z79.1 Long term (current) use of non-steroidal anti-inflammatories (NSAID); Z79.01 Long term (current) use of anticoagulants; Z79.899 Other long term (current) drug therapy; Z99.89 Dependence on other enabling machines and devices; Z86.73 Personal history of transient ischemic attack (TIA), and cerebral infarction without residual deficits; Z90.79 Acquired absence of other genital organ(s); Z85.46 Personal history of malignant neoplasm of prostate; Z98.1 Arthrodesis status; Z98.890 Other specified postprocedural states; Z88.8 Allergy status to other drugs, medicaments and biological substances; Z80.1 Family history of malignant neoplasm of trachea, bronchus and lung; Z82.49 Family history of ischemic heart disease and other diseases of the circulatory system
CPT/HCPCS: 36415; 71046; 80053; 80061; 83735; 83880; 84443; 84484; 85025; 85610; 85730; 93005; 93306; 94660; 96361; 96374; 96375; 96376; 99285

== ENCOUNTER → 2019-03-30 | Outpatient (CLI) | payer MEDICARE ==
[2019-03-30 18:04] LABS: Appearance,Urine Clear (Clear); Bilirubin,Urine Negative (Negative); Blood,Urine Negative (Negative); Color,Urine Light Yellow; Glucose,Urine (UA) Negative (Negative); Ketones,Urine Negative (Negative); Leukocyte Esterase,Urine Negative (Negative); Nitrite,Urine Negative (Negative); Protein,Urine Negative (Negative); Urobilinogen,Urine <2.0 mg/dL (<2.0)
== END ==
LOC: LABPAT 16:14
PROVIDERS: ATTEND Orthopaedic Surgery
DX: Z01.812 Encounter for preprocedural laboratory examination (principal); M16.11 Unilateral primary osteoarthritis, right hip
CPT/HCPCS: 81003

== ENCOUNTER → 2019-04-03 | Outpatient (CLI) | payer MEDICARE ==
[2019-04-03 16:05] LABS: Basophils % (A) 1 %; Eosinophils # (A) 0.2 k/uL (0-0.7); Eosinophils % (A) 3 %; HCT 42.8 % (39.0-53.0); HGB 13.5 gm/dL (13.0-17.5); Lymphocytes # (A) 1.3 k/uL (1.0-4.8); Lymphocytes % (A) 22 %; MCH 28.1 pg (25.0-35.0); MCHC 31.7 g/dL (31.0-37.0); MCV 88.8 fL (80.0-100.0); Mean Platelet Volume 6.3; Monocytes # (A) 0.5 k/uL (0-1.0); Monocytes % (A) 9 %; Neutrophils # (A) 3.7 k/uL (1.3-7.7); Neutrophils % (A) 63 %; Platelet Count 261 k/uL (150-450); RBC 4.81 m/uL (4.30-5.90); RDW 13.3 % (11.5-15.5); WBC 5.8 k/uL (3.8-10.6)
[2019-04-03 22:33] LABS: Anion Gap 6.5 mmol/L (4.00-12.00); Calcium 9.6 mg/dL (8.7-10.3); Carbon Dioxide 27.5 mmol/L (21.6-31.8); Potassium 4.3 mmol/L (3.5-5.5)
== END ==
LOC: LABWHC1 15:15
PROVIDERS: ATTEND Family Medicine
DX: I48.91 Unspecified atrial fibrillation (principal)
CPT/HCPCS: 36415; 80048; 85025

== ENCOUNTER 2019-04-07 08:13 | Inpatient (IN) | payer BC, MEDICARE ==
[~2019-04-07 08:13] MED LIST: ACETAMINOPHEN TAB 500 MG TAB PO ONE; DEXAMETHASONE SOD PHOSPHATE 10 MG/ML 1 ML VIAL IV ONE; LACTATED RINGERS 1,000 ML IV SCH; LIDOCAINE 1% 20 ML VIAL (10MG/ML) FOR IV START INTRADERMA PRN; MELOXICAM 7.5 MG TAB PO ONE; MIDAZOLAM 2 MG/2 ML VIAL IV PRN; ROPIVACAINE 246.25 MG, EPINEPHrine 0.5 MG, KETOROLAC 30 MG, WATER FOR INJECTION,STERILE... MISCELLANE ONE; SCOPOLAMINE 1.5MG/72HR PATCH TRANSDERM ONE; TRANEXAMIC ACID 1,000 MG in SODIUM CHLORIDE 0.9% 100 ML IVPB ONE; ceFAZolin IN SWFI 2 GM/20 ML SYRINGE IVP ONE
[2019-04-07] MEDS ORDERED: HYDROcodone/APAP 5-325MG 1 EACH TAB PO PRN ×2 (08:50)
[2019-04-07] MEDS ORDERED: HYDROmorphone 1 MG/ML 1 ML SYRINGE IVP PRN (08:50)
[2019-04-07] MEDS ORDERED: HYDROmorphone 0.5 MG/0.5 ML SYRINGE IVP PRN (08:50)
[2019-04-07] MEDS ORDERED: hydrOXYzine PAMOATE 25 MG CAP PO PRN (08:50)
[2019-04-07] MEDS ORDERED: MAGNESIUM HYDROXIDE 2,400 MG/10 ML CUP PO PRN (08:50)
[2019-04-07] MEDS ORDERED: NALOXONE 0.4 MG/ML 1 ML VIAL IV PRN (08:50)
[2019-04-07] MEDS ORDERED: MELOXICAM 7.5 MG TAB PO SCH (09:00)
[2019-04-07] MEDS ORDERED: Acetaminophen-Codeine 300-30mg TAB PO PRN (09:03)
[2019-04-07] MEDS ORDERED: SODIUM CHLORIDE 0.9% 100 ML BAG ONE (09:20)
[2019-04-07] MEDS ORDERED: LACTATED RINGERS 1,000 ML BAG IV ONE (09:20)
[2019-04-07] MEDS ORDERED: ROCURONIUM BROMIDE 10 MG/ML 10 ML VIAL IV ONE (09:20)
[2019-04-07] MEDS ORDERED: KETAMINE 10 MG/ML 20 ML VIAL ONE (09:20)
[2019-04-07] MEDS ORDERED: SUCCINYLCHOLINE CHLORIDE VIAL 200 MG/10 ML VIAL IV ONE (09:20)
[2019-04-07] MEDS ORDERED: LIDOCAINE 1% INJ 10MG/ML (20 ML MDV) ONE (09:20)
[2019-04-07] MEDS ORDERED: PROPOFOL 10 MG/ML 20 ML VIAL IV ONE (09:20)
[2019-04-07] MEDS ORDERED: MIDAZOLAM 2 MG/2 ML VIAL ONE (09:20)
[2019-04-07] MEDS ORDERED: fentaNYL (PF) 50 MCG/ML 2 ML AMP ONE (09:20)
[2019-04-07] MEDS ORDERED: TRANEXAMIC ACID 1,000 MG/10 ML VIAL ONE (09:20)
[2019-04-07] MEDS ORDERED: HEPARIN SODIUM,PORCINE 10,000 UNIT/ML 1 ML VIAL ONE (09:20)
[2019-04-07] MEDS: ONDANSETRON 4 MG/2 ML VIAL IVP ONE ×2 (09:21→11:25)
[2019-04-07] MEDS ORDERED: ceFAZolin 3,000 MG in SODIUM CHLORIDE 0.9% IRRIGATIO 3,000 ML IRRIGATION ONE (09:23)
--- NOTE | 2019-04-07 10:50 | P.OP ---
Date of Procedure: 04/07/19 Preoperative Diagnosis: Severe osteoarthritis right hip Postoperative Diagnosis: Severe osteoarthritis right hip Procedure(s) Performed: Right total hip arthroplasty direct anterior approach Implants: Pimentel and nephew Polarstem size 1 standard Pimentel & Nephew R3, 3 hole acetabular shell, 52 mm Pimentel & Nephew reflection 6.5 mm cancellus screw, 20 mm 2 Pimentel & Nephew R3, XLPE 20 acetabular liner Pimentel & Nephew Oxinium femoral head 36 m, +0 All components were press-fit. The articulation is Oxinium on polyethylene. Anesthesia: spinal Surgeon: Vik Bernardo Radiology Services Manager #1: Esther Almanza Estimated Blood Loss (ml): 200 (63 mL returned with Cell Saver) Pathology: other (Femoral head) Condition: stable Disposition: PACU Indications for Procedure: After failure of conservative treatment we discussed the surgical and nonsurgical treatment options at length. Patient wishes to proceed with a total hip arthroplasty with a direct anterior approach. Complications specific to this procedure were discussed at length, including but not limited to infection, leg length discrepancy, dislocation, and nerve injury. Patient is aware of all these complications and informed consent was obtained Operative Findings: The operative findings are consistent with severe osteoarthritis of the right hip Description of Procedure: Patient was seen and evaluated in the preoperative area, consent was reviewed, and the surgical site was marked with a skin marker. Patient was then brought to the operating room and given prophylactic antibiotics intravenously. 1 g of Tranexamic acid was also given. A spinal anesthetic was administered by the anesthesia department. The patient was then placed on the [place] table with the bony prominences well-padded. The hip area was then prepped and draped in usual sterile fashion. A universal timeout was then performed, which confirmed the patient's name, surgical site, ALLERGIES, and procedure being performed. Next the incision site was located at 1 cm distal and 1 cm lateral to the anterior superior iliac spine. The skin and subcutaneous tissues were sharply incised. Incision was carefully dissected down to the fascia overlying the tensor fascia bala muscle. This fascia was then incised in line with the incision. Next, using blunt finger dissection, the tensor fascia bala muscle was dissected off its investing fascia. The muscle was then carefully retracted laterally with a cobra retractor over the lateral neck of the femur. Next, the circumflex vessels were identified and cauterized using the AquaMantis device. The anterior hip capsule was then exposed. The capsule was then opened and an inverted T fashion. Cobra retractors were then placed intracapsularly. The proximal femur was then visualized. The femoral neck was then osteotomized appropriate level above the lesser trochanter. Small amount of traction was placed with the [place] table. A small wedge of bone was then removed from the remaining femoral head. Next, using a corkscrew femoral head was easily removed from the acetabulum. On gross visual inspection, the femoral head had complete loss of articular cartilage in multiple periarticular osteophytes. Attention was then turned to the acetabulum. the acetabulum was exposed and any remaining labrum was excised. Sequential reaming of the acetabulum was performed using fluoroscopic guidance. When the appropriate size was reached, a trial was then placed. The position and fit of the trial was checked with fluoroscopy. The trial was then removed. Then, using fluoroscopic guidance, the final implant was impacted at 20 of anteversion and 40 of abduction, and fully seated in the acetabulum. 2 screws were then placed in the acetabulum. Again fluoroscopy was used to check position of the screws. Next, the liner was then impacted, with a 20 elevated liner located in the anterior superior quadrant. Component locking was confirmed. Attention was then directed to the femur. With the aid of the [place] table, the femur was externally rotated to approximately 130, extended, and abducted under the opposite leg. A side hook was then placed under the proximal femur, and the side hook elevator was used to elevate the proximal femur. Retractors were then placed. A capsular release was performed, as well as a release of the conjoined tendon, which afforded excellent visualization of the proximal femur. Next, a box osteotome was used to lateralize the proximal femur. A trimmer hand was then used to locate the femoral canal. Sequential broaching was then performed with appropriate size which afforded excellent fixation in the proximal femur. A trial was then placed with appropriate head and neck, and the hip was gently reduced with the aid of the [place] table. Fluoroscopy was then used to check position of the components, as well as to ensure equal leg lengths. The hip was then gently dislocated and the trials were then removed. Final implants were then impacted and the hip was again reduced. Final fluoroscopic x-rays confirmed that the components were in anatomic position, as well as equal leg lengths. The hip was also taken through range of motion, and found to be stable. The hip was then copiously irrigated with antibiotic solution with pulsatile lavage. The hip was then irrigated with Irrisept solution. The soft tissues were then injected with a ropivacaine solution, which consisted of 246.25 mg of ropivacaine, 0.5 mg of epinephrine, 30 mg of Toradol, 80 g of clonidine, and 48.45 mL of sterile water, for a total of 100 mL of fluid injected. A second dose of 1 g of Tranexamic acid was also given. the fascia was then closed with 2-0 strata fix suture. The subcutaneous tissue was closed with 3-0 Vicryl. The subcuticular tissue was closed with 3-0 strata fix suture. The skin was then closed with Dermabond glue and a sterile silver dressing. The patient was then transferred to the recovery room in stable condition. The critical care physician assistant VENKAT Mijares was required due to the complexity of surgery, and the need for skilled surgical garment inspector for positioning, draping, exposure, retraction, and closure of the wound.
[2019-04-07] MEDS ORDERED: LACTATED RINGERS 1,000 ML IV ONE (11:04)
--- NOTE | 2019-04-07 11:14 | XR ---
EXAMINATION TYPE: XR Hip Limited RT, FL guidance operating room DATE OF EXAM: 04/07/2019 CLINICAL HISTORY: Right anterior hip arthroplasty. Fluoroscopic documentation. TECHNIQUE: Fluoroscopy. COMPARISON: None. FINDINGS: Fluoroscopic guidance was provided during procedure performed by Dr. Bernardo. A total of 46 seconds of fluoroscopic time was utilized during the procedure and 2 spot images was acquired dur ing a right hip arthroplasty. IMPRESSION: As Above.
[2019-04-07] MEDS: HYDROmorphone 0.5 MG/0.5 ML SYRINGE IVP PRN ×4 (11:25→20:18)
--- NOTE | 2019-04-07 11:31 | XR ---
EXAMINATION TYPE: XR Hip Limited RT DATE OF EXAM: 04/07/2019 CLINICAL HISTORY: Right hip pain and osteoarthritis. TECHNIQUE: Single AP portable view of right hip is obtained immediately postoperatively. COMPARISON: None. FINDINGS: Metallic hardware from right hip arthroplasty is seen and appears satisfactory in alignment and position. There is evidence of recent surgery with subcutaneous gas and soft tissue swelling no briana laterally. IMPRESSION: Metallic hardware from right hip arthroplasty is satisfactory in position.
[2019-04-07 13:21] VITALS: BMI 32.8
[2019-04-07] MEDS: SODIUM CHLORIDE 0.9% 1,000 ML IV SCH (14:03)
[2019-04-07] MEDS: ceFAZolin IN SWFI 2 GM/20 ML SYRINGE IVP SCH ×2 (17:03→23:15)
[2019-04-07] MEDS: DOFETILIDE 125 MCG CAP PO SCH (20:14)
[2019-04-07] MEDS: LISINOPRIL 10 MG TAB PO SCH (20:15)
[2019-04-07] MEDS ORDERED: SENNOSIDES-DOCUSATE SODIUM 1 EACH TAB PO SCH (21:00)
[2019-04-07] MEDS ORDERED: ATORVASTATIN 20 MG TAB PO SCH (21:00)
[2019-04-07] MEDS ORDERED: EZETIMIBE 10 MG TAB PO SCH (21:00)
[2019-04-07] MEDS: Acetaminophen-Codeine 300-30mg TAB PO PRN (21:37)
--- NOTE | 2019-04-07 23:54 | CONS ---
CONSULTATION DATE OF CONSULTATION: 04/07/2019 REASON FOR CONSULTATION: Medical management, requested by Dr. Bernardo. CONSULTATION: This is a 63-year-old patient of Dr. Akhtar whose chronic stable medical conditions include atrial fibrillation, on anticoagulation, hypertension, obstructive sleep apnea with CPAP. The patient underwent right total hip arthroplasty. Pain is controlled. Patient actually did walk a bit in the hallway. No nausea or vomiting. No chest pain. Overall feeling better. is present. REVIEW OF SYSTEMS: CONSTITUTIONAL: None. HEENT: None. RESPIRATORY: None. CARDIOVASCULAR: None. GASTROINTESTINAL: None. GENITOURINARY: None. MUSCULOSKELETAL: Arthritic pain in the joints. DERMATOLOGICAL: None. HEMATOLOGICAL: None. LYMPHATICS: None. PSYCHIATRY: None. NEUROLOGICAL: None. PAST MEDICAL HISTORY: 1. Atrial fibrillation. 2. Hypertension. 3. Osteoarthritis. 4. Prostate disorder. 5. Obstructive sleep apnea. 6. Severely hearing loss in the left ear. 7. Prostate cancer; no treatment. PAST SURGICAL HISTORY: 1. Back surgery. 2. Cardiac ablation. 3. Hernia repair. 4. Cervical fusion, C3 to C7. 5. Right elbow surgery. 6. Carpal surgery. 7. Inguinal hernia repair. 8. Lower back fusion. 9. Cardioversion in 2014 and ablation in 2014. 10.Prostatectomy in 2007. SOCIAL HISTORY: No smoking. No alcohol. Retired. . FAMILY HISTORY: Lung cancer and myocardial infarction. HOME MEDICATIONS: 1. ICAPS Soft Gel 1 capsule p.o. b.i.d. 2. Xarelto 20 mg before supper. 3. Metamucil 6 grams p.o. daily. 4. Fish oil 1 capsule p.o. daily. 5. Toprol-XL 25 mg b.i.d. p.r.n. 6. Slow-Mag 64 mg at bedtime. 7. Zestril 10 mg b.i.d. 8. Artificial Tears 1 drop both eyes daily p.r.n. 9. Mercer 7.5 two tablets p.o. t.i.d. p.r.n. 10.Lasix 20 mg p.o. daily. 11.Pepcid 20 mg p.o. at bedtime. 12.Vytorin 10/40 one tablet p.o. at bedtime. 13.Tikosyn 125 mcg p.o. q.12. 14.Vitamin B12 1000 mcg p.o. daily. 15.Celebrex 200 mg b.i.d. 16.Tylenol 500 mg p.o. b.i.d. p.r.n. ALLERGIES: 1. AMIODARONE. 2. FLECAINIDE. PHYSICAL EXAMINATION: Temperature 98.7, pulse 73, respiration 17, blood pressure 110/65, pulse ox 96% on room air. GENERAL APPEARANCE: Well built; BMI 33.4. EYES: Pupils equal. Conjunctivae normal. HEENT: External appearance of nose and ears normal. Oral cavity normal. NECK: JVD not raised. Mass not palpable. RESPIRATORY: Effort normal. LUNGS: Fair air entry. CARDIOVASCULAR: First and second sounds normal. No edema. ABDOMEN: Soft, non-tender. Liver and spleen not palpable. LYMPHATIC: No lymph node palpable in neck or axillae. PSYCHIATRY: Alert and oriented x3. Mood and affect normal. NEUROLOGICAL: Pupils equal. Cranial nerves grossly intact. Power and sensation grossly intact. MUSCULOSKELETAL: Dressing on the right hip. Evidence of osteoarthritis, especially in the hands. INVESTIGATIONS: Blood work from 04/03/2019 showed white count 5.8, hemoglobin 13.5, platelets 261, potassium 4.3. BUN and creatinine normal. ASSESSMENT: 1. Right total hip arthroplasty. 2. Persistent atrial fibrillation, chronically on Xarelto. 3. Essential hypertension. 4. Primary osteoarthritis. 5. Obstructive sleep apnea. Uses CPAP machine. PLAN: Home medications are resumed. Patient's Xarelto will be resumed when okay with Dr. Bernardo. Care was discussed with the patient. Questions were answered. Overall doing better. Thank you, Dr. Bernardo. MMODL / JOHN PAULN: [id number] /
[2019-04-08] MEDS: SODIUM CHLORIDE 0.9% 1,000 ML IV SCH (01:08)
[2019-04-08] MEDS: HYDROmorphone 0.5 MG/0.5 ML SYRINGE IVP PRN (02:02)
[2019-04-08] MEDS: Acetaminophen-Codeine 300-30mg TAB PO PRN (05:07)
[2019-04-08 07:12] VITALS: BP 110/72; PULSE 68; RESP 16; TEMP 98.1
[2019-04-08] MEDS: LISINOPRIL 10 MG TAB PO SCH (07:13)
[2019-04-08] MEDS: DOFETILIDE 125 MCG CAP PO SCH (07:14)
[2019-04-08 08:22] LABS: Basophils % (A) 0 %; Eosinophils % (A) 0 %; HCT 39.3 % (39.0-53.0); HGB 12.3 gm/dL (13.0-17.5); Lymphocytes # (A) 1.5 k/uL (1.0-4.8); Lymphocytes % (A) 13 %; MCHC 31.3 g/dL (31.0-37.0); MCV 89.7 fL (80.0-100.0); Mean Platelet Volume 6.2; Monocytes # (A) 1.1 k/uL (0-1.0); Monocytes % (A) 9 %; Neutrophils # (A) 8.9 k/uL (1.3-7.7); Neutrophils % (A) 75 %; Platelet Count 308 k/uL (150-450); RBC 4.39 m/uL (4.30-5.90); RDW 13.2 % (11.5-15.5); WBC 11.8 k/uL (3.8-10.6)
[2019-04-08] MEDS ORDERED: CYANOCOBALAMIN 500 MCG TAB PO SCH (09:00)
[2019-04-08] MEDS ORDERED: FUROSEMIDE 20 MG TAB PO SCH (09:00)
--- NOTE | 2019-04-08 09:08 | P.DS ---
Providers Date of admission: 04/07/19 08:13 Expected date of discharge: 04/08/19 Attending physician: Vik Bernardo Consults: 04/07/19 08:50 Consult Physician Routine Consulting Provider: Benson Copeland Consult Reason/Comments: medical management and anticoagulation Do you want consulting provider notified?: Yes 04/07/19 09:03 Consult Physician Routine Consulting Provider: Tyler Fagan Consult Reason/Comments: anticoagulation and medical management Do you want consulting provider notified?: Yes Primary care physician: Carlos Akhtar - Discharge Diagnosis(es) (1) S/P total hip arthroplasty Current Visit: Yes Status: Acute (2) Osteoarthritis of right hip Current Visit: Yes Status: Acute Hospital Course: This is a 63-year-old male with known history of degenerative arthritis of the right hip. The patient presents for evaluation. After discussion and consideration patient elects to proceed with total hip arthroplasty. The patient is seen preoperatively by Dr. Bernardo and medically cleared for surgery by their primary care physician. Patient is admitted to [facility] on 04/07/2019 for total hip arthroplasty. The procedures performed without complication or sequelae. The patient is doing well postoperatively. Labs and vital signs are stable on day of discharge. On day of discharge patient's hip incision is healing well. There is minimal erythema. There is no drainage noted at this time. There is minimal soft tissue swelling to the hip and thigh. Patient has full foot and ankle motion without difficulty or pain. Calf is soft and nontender to palpation. Neurovascular status to the right lower extremity is intact. Patient is discharged home in good condition. Opioid start talking form is reviewed and signed at patient bedside. Please see med rec for accurate list of home medications. Plan - Discharge Summary Discharge Rx Participant: Yes New Discharge Prescriptions: New Acetaminophen-Codeine 300-30mg [Tylenol #3] 1 - 2 tab PO Q6H PRN #45 tablet PRN Reason: Pain Sennosides [Senokot] 1 tab PO BID #60 tablet No Action HYDROcodone/APAP 7.5-325MG [Lafe 7.5-325] 2 tab PO TID PRN PRN Reason: Pain Rivaroxaban [Xarelto] 20 mg PO AC-SUPPER Ezetimibe/Simvastatin [Vytorin 10-40 mg Tablet] 1 tab PO HS Famotidine [Pepcid] 20 mg PO HS Furosemide [Lasix] 20 mg PO DAILY Celecoxib [CeleBREX] 200 mg PO BID Psyllium Husk 100% [Metamucil Packet] 6 gm PO DAILY [place]-3 Fatty Acids/Fish Oil [Fish Oil 1,000 mg Softgel] 1 cap PO DAILY Hypromellose [Artificial Tears] 1 drop BOTH EYES DAILY PRN PRN Reason: Dry Eye(S) Acetaminophen [Tylenol] 500 mg PO BID PRN PRN Reason: Pain Dofetilide [Tikosyn] 125 mcg PO Q12HR #90 cap Magnesium Chloride [Slow-Mag] 64 mg PO HS Cyanocobalamin (Vitamin B-12) [Vitamin B-12] 2,000 mcg PO DAILY Lisinopril [Zestril] 10 mg PO BID Vit A/Vit C/Vit E/Zinc/Copper [ICAPS SOFTGEL] 1 cap PO BID Metoprolol Succinate (ER) [Toprol XL] 25 mg PO BID PRN PRN Reason: DEPENDS ON BLOOD PRESSURE/HR Discharge Medication List Celecoxib [CeleBREX] 200 mg PO BID 01/24/15 [History] Ezetimibe/Simvastatin [Vytorin 10-40 mg Tablet] 1 tab PO HS 01/24/15 [History] Famotidine [Pepcid] 20 mg PO HS 01/24/15 [History] Furosemide [Lasix] 20 mg PO DAILY 01/24/15 [History] HYDROcodone/APAP 7.5-325MG [Lafe 7.5-325] 2 tab PO TID PRN 01/24/15 [History] Rivaroxaban [Xarelto] 20 mg PO AC-SUPPER 01/24/15 [History] Hypromellose [Artificial Tears] 1 drop BOTH EYES DAILY PRN 03/21/15 [History] [place]-3 Fatty Acids/Fish Oil [Fish Oil 1,000 mg Softgel] 1 cap PO DAILY 03/21/15 [History] Psyllium Husk 100% [Metamucil Packet] 6 gm PO DAILY 03/21/15 [History] Acetaminophen [Tylenol] 500 mg PO BID PRN 06/24/15 [History] Dofetilide [Tikosyn] 125 mcg PO Q12HR #90 cap 07/02/15 [Rx] Magnesium Chloride [Slow-Mag] 64 mg PO HS 01/09/16 [History] Cyanocobalamin (Vitamin B-12) [Vitamin B-12] 2,000 mcg PO DAILY 03/19/19 [History] Lisinopril [Zestril] 10 mg PO BID 03/31/19 [History] Metoprolol Succinate (ER) [Toprol XL] 25 mg PO BID PRN 03/31/19 [History] Vit A/Vit C/Vit E/Zinc/Copper [ICAPS SOFTGEL] 1 cap PO BID 03/31/19 [History] Acetaminophen-Codeine 300-30mg [Tylenol #3] 1 - 2 tab PO Q6H PRN #45 tablet 04/08/19 [Rx] Sennosides [Senokot] 1 tab PO BID #60 tablet 04/08/19 [Rx] Follow up Appointment(s)/Referral(s): Vik Bernardo DO [Doctor of Osteopathic Medicine] - 2 Weeks Activity/Diet/Wound Care/Special Instructions: Weightbearing as tolerated with walker. Leave dressing intact. Dressing may be removed by home care nurse or by patient in 10 days. May shower with dressing on. Please follow-up with [facility] in 2 weeks and call with any questions or concerns, . Discharge Disposition: HOME WITH HOME HEALTH SERVICES
--- NOTE | 2019-04-08 14:58 | P.PN ---
Subjective This is a pleasant 63-year-old male past medical history significant for atrial tachycardia on flecainide, sick sinus syndrome, dyslipidemia, hypertension and paroxysmal atrial fibrillation. He follows with Dr. Fagan in the office. He is at the hospital for an elective right total hip arthroplasty. We are following him post-operatively. He saw Dr. Fagan in the office for pre- op evaluation. He is maintained on dofetilide. EKG was requested this morning and revealed sinus mechanism with non-specific ST abnormalities with no QT pro longation. Blood pressure 110/72 heart rate 68 afebrile and maintaining oxygen saturation on room air. Laboratory data reviewed, WBC 11.8, hgb 12.3, plt 308. Currently maintained on dofetilide 2,000 mcg daily, toprol 25 mg daily, lasix 20 mg daily, lisinopril 10 mg BID and xarelto 20 mg daily. He is seen and examined sitting up in the chair. He states he has been up and ambulating around the unit with no symptoms of chest pain, shortness of breath, dizziness or palpitations. He has not required any anti-emetics or antibiotics that would interfere with his dofetilide. GENERAL: Well-appearing, well-nourished and in no acute distress. NECK: Supple without JVD or thyromegaly. LUNGS: Breath sounds clear to auscultation bilaterally. Respiration equal and unlabored. No wheezes, rales or rhonchi. HEART: Regular rate and rhythm without murmurs, rubs or gallops. S1 and S2 heard. EXTREMITIES: Normal range of motion, no edema. No clubbing or cyanosis. Peripheral pulses intact. ASSESSMENT Paroxysmal atrial fibrillation on exterminator helper anti-coagulation with xarelto s/p right hip arthroplasty Hypertension Dyslipidemia PLAN EKG has been obtained and reviewed. No evidence of atrial fibrillation or QT prolongation. Hemodynamically stable. Follow-up with Dr. Ruvalcaba as previously established. Nurse Practitioner note has been reviewed, I agree with a documented findings and plan of care. Patient was seen and examined. Objective - Vital Signs Vital signs: Vital Signs Temp 98.1 F 04/08/19 07:00 Pulse 68 04/08/19 07:00 Resp 16 04/08/19 07:00 BP 110/72 04/08/19 07:00 Pulse Ox 96 04/08/19 07:00 Intake & Output 04/07/19 04/08/19 04/08/19 18:59 06:59 18:59 Intake Total 1001 840 Output Total 200 Balance 801 840 Intake: IV 1001 Oral 840 Output: Estimated Blood Loss 200 Other: # Voids 2 - Labs CBC & Chem 7: 04/08/19 07:54 Labs: Abnormal Lab Results - Last 24 Hours (Table) 04/08/19 Range/Units 07:54 WBC 11.8 H (3.8-10.6) k/uL Hgb 12.3 L (13.0-17.5) gm/dL Neutrophils # 8.9 H (1.3-7.7) k/uL Monocytes # 1.1 H (0-1.0) k/uL
[2019-04-08] MEDS ORDERED: RIVAROXABAN 20 MG TAB PO SCH (17:30)
--- NOTE | 2019-04-09 09:44 | PN ---
PROGRESS NOTE DATE OF SERVICE: 04/08/2019 PRESENTING COMPLAINT: Right hip surgery. INTERVAL HISTORY: Patient is seen by me this morning. Pain is much better controlled. Did therapy, up and about. No nausea or vomiting. Doing well. REVIEW OF SYSTEMS: Done for constitutional, cardiovascular, GI, pulmonary, musculoskeletal; relevant findings as above. CURRENT MEDICATIONS: Current medications are reviewed. PHYSICAL EXAMINATION: On examination, temperature 98.1, pulse 68, respiration 16, blood pressure 110/72, pulse ox 96% on room air. GENERAL APPEARANCE: Sitting up, comfortable. EYES: Pupils equal. Conjunctivae normal. NECK: JVD not raised. Mass not palpable. RESPIRATORY: Effort normal. LUNGS: Are clear. CARDIOVASCULAR: First and second sounds normal. No edema. ABDOMEN: Soft, nontender. Liver and spleen not palpable. PSYCHIATRY: Alert and oriented x3. Mood and affect normal. INVESTIGATIONS: Hemoglobin 12.3. ASSESSMENT: 1. Right total hip arthroplasty. 2. Persistent atrial fibrillation chronically on Xarelto. 3. Essential hypertension. 4. Primary osteoarthritis. 5. Obstructive sleep apnea, uses CPAP. PLAN: Patient is doing well, stable. Should follow up with his family doctor. MMODL / IJN: [id number] /
== END 2019-04-08 12:45 | disposition home health service (06) | DRG 470 ==
LOC: 2ORMAIN 08:13 → 4SSUR 11:14
PROVIDERS: ADMIT Orthopaedic Surgery; ATTEND Orthopaedic Surgery
PROC: 0SR906A Replacement of Right Hip Joint with Oxidized Zirconium on Polyethylene Synthetic Substitute, Uncemented, Open Approach (ICD-10-PCS; principal; 2019-04-07 09:15)
DX: M16.11 Unilateral primary osteoarthritis, right hip (principal); E78.5 Hyperlipidemia, unspecified; G47.33 Obstructive sleep apnea (adult) (pediatric); H91.92 Unspecified hearing loss, left ear; I10 Essential (primary) hypertension; I49.5 Sick sinus syndrome; I48.2 Chronic atrial fibrillation; Z88.8 Allergy status to other drugs, medicaments and biological substances; Z99.89 Dependence on other enabling machines and devices; Z85.46 Personal history of malignant neoplasm of prostate; Z98.890 Other specified postprocedural states; Z98.1 Arthrodesis status; Z86.73 Personal history of transient ischemic attack (TIA), and cerebral infarction without residual deficits; Z82.49 Family history of ischemic heart disease and other diseases of the circulatory system; Z79.01 Long term (current) use of anticoagulants; Z79.899 Other long term (current) drug therapy; Z80.1 Family history of malignant neoplasm of trachea, bronchus and lung; Z90.79 Acquired absence of other genital organ(s)
CPT/HCPCS: 36415; 73501; 85025; 86850; 86891; 86900; 86901; 88305; 88311; 93005

== ENCOUNTER 2019-05-13 19:18 | Inpatient (IN) | payer MEDICARE ==
[2019-05-13] MEDS ORDERED: ONDANSETRON 4 MG/2 ML VIAL IVP PRN (19:37)
[2019-05-13] MEDS ORDERED: MAGNESIUM HYDROXIDE 2,400 MG/10 ML CUP PO PRN (19:37)
[2019-05-13] MEDS ORDERED: NALOXONE 0.4 MG/ML 1 ML VIAL IV PRN (19:37)
[2019-05-13] MEDS ORDERED: HYDROmorphone 1 MG/ML 1 ML SYRINGE IVP PRN (19:37)
[2019-05-13] MEDS ORDERED: HYDROmorphone 0.5 MG/0.5 ML SYRINGE IVP PRN ×2 (19:37)
[2019-05-13] MEDS ORDERED: HYDROcodone/APAP 5-325MG 1 EACH TAB PO PRN (19:37)
[2019-05-13] MEDS: SENNOSIDES-DOCUSATE SODIUM 1 EACH TAB PO SCH (23:02)
[2019-05-13] MEDS: SODIUM CHLORIDE 0.9% 1,000 ML IV SCH (23:14)
[2019-05-13 23:33] VITALS: BMI 34.3
[2019-05-14] MEDS: HYDROcodone/APAP 5-325MG 1 EACH TAB PO PRN ×3 (04:19→20:12)
[2019-05-14] MEDS ORDERED: DOFETILIDE 125 MCG CAP PO STA (08:20)
[2019-05-14] MEDS ORDERED: METOPROLOL SUCCINATE (ER) 25 MG TAB.ER.24H PO STA (08:23)
--- NOTE | 2019-05-14 08:36 | P.HPOR ---
History of Present Illness H&P Date: 05/14/19 This is a 63-year-old male with a past medical history significant for atrial fibrillation, cancer, CVA/TIA, hypertension, osteoarthritis, prostate disorder, and sleep apnea. Patient is admitted for an infection of the right hip. Patient is a known patient of [facility] and presented as an outpatient on 05/13/2019 with complaints of increasing pain in the right hip. Patient underwent right total hip arthroplasty on 04/07/2019. Patient was placed on oral Keflex on 05/08/2018 for mild redness at the incision site. Patient states that over the weekend he developed chills, shakes, nausea along with pain in the right hip. Patient states that these symptoms have improved, but his pain in the right hip and has not. Patient states that he is now using a walker to ambulate due to pain. Patient was sent for a CT scan on 05/13/2019 which revealed evidence for possible abscess. Lab work from 05/13/2019 showed elevated CRP and ESR. Patient reports continued pain in the right hip today, but denies any fever/chills, nausea, abdominal pain, shortness of breath, chest pain, numbness, weakness or tingling. Review of Systems See HPI. Past Medical History Past Medical History: Atrial Fibrillation, Cancer, CVA/TIA, Hypertension, Osteoarthritis (OA), Prostate Disorder, Sleep Apnea/CPAP/BIPAP Additional Past Medical History / Comment(s): SEE H & P FOR CARDIOVASCULAR NOTES PROVIDED BY DR. BATES. MRI SHOWED MINI STROKE HAS SEVERE HEARING LOSS LT EAR 2012,USE CPAP,PROSTATE CA-NO RAD OR CHEM. History of Any Multi-Drug Resistant Organisms: None Reported Past Surgical History: Back Surgery, Cardiac Ablation, Hernia Repair, Orthopedic Surgery, Prostate Surgery Additional Past Surgical History / Comment(s): CERVICAL -FUSION C-3-C-7,RIGHT ELBOW, CARPAL TUNNEL, INGUINAL HERNIA , AND LOWER BACK FUSION. CARDIOVERSION IN JANUARY 2015. 06-28-15 CARDIAC ABLATION AND CARDIOVERSION(FOR AFIB), CARDIOVERSION,PROSTATECOMY 2007 Past Anesthesia/Blood Transfusion Reactions: Postoperative Nausea & Vomiting (PONV) Additional Past Anesthesia/Blood Transfusion Reaction / Comment(s): SLOW TO AWAKEN X1. SISTER HAS PONV. Past Psychological History: No Psychological Hx Reported Additional Psychological History / Comment(s): PT IS RETIRED. Smoking Status: Never smoker Past Alcohol Use History: None Reported Past Drug Use History: None Reported - Past Family History Father Family Medical History: Cancer Additional Family Medical History / Comment(s): LUNG CANCER Mother Family Medical History: Hypertension Additional Family Medical History / Comment(s): ENLARGED HEART Medications and Allergies Home Medications Medication Instructions Recorded Confirmed Type Celecoxib [CeleBREX] 200 mg PO BID 01/24/15 05/13/19 History Ezetimibe/Simvastatin [Vytorin 1 tab PO HS 01/24/15 05/13/19 History 10-40 mg Tablet] Famotidine [Pepcid] 20 mg PO HS 01/24/15 05/13/19 History Furosemide [Lasix] 20 mg PO DAILY 01/24/15 05/13/19 History HYDROcodone/APAP 7.5-325MG [[place] 1 - 2 tab PO TID PRN 01/24/15 05/13/19 History 7.5-325] Rivaroxaban [Xarelto] 20 mg PO HS 01/24/15 05/13/19 History Hypromellose [Artificial Tears] 1 drop BOTH EYES DAILY PRN 03/21/15 05/13/19 History Magnesium Chloride [Slow-Mag] 64 mg PO HS 01/09/16 05/13/19 History Lisinopril [Zestril] 10 mg PO BID 03/31/19 05/13/19 History Vit A/Vit C/Vit E/Zinc/Copper 1 cap PO BID 03/31/19 05/13/19 History [ICAPS SOFTGEL] Dofetilide [Tikosyn] 125 mcg PO BID 05/13/19 05/13/19 History Metoprolol Succinate (ER) [Toprol 25 mg PO BID PRN 05/13/19 05/13/19 History XL] Allergies Allergy/AdvReac Type Severity Reaction Status Date / Time amiodarone AdvReac muscle Verified 05/13/19 23:45 tremors flecainide AdvReac bradycardia Verified 05/13/19 23:45 Physical Examination Vital signs are stable. Patient is in no acute distress and is alert and oriented 3. Calf is soft and nontender to palpation. Incision with minimal surrounding erythema. No active drainage. There is moderate swelling over the right hip along with tenderness to palpation. Patient has pain with active and passive hip range of motion. Sensation is intact. Neurovascular status and circulatory status are intact. Results A CT report of the right hip dated 05/13/2019 shows: Anterior to the right hip prosthesis is a hypodense collection measuring 7 cm which contains some punctate areas of air. A small area is less well visualized but may be lateral to the greater trochanter as well. Abscess should be considered. Assessment and Plan (1) Abscess of right hip Current Visit: Yes Status: Acute Code(s): L02.415 - CUTANEOUS ABSCESS OF RIGHT LOWER LIMB SNOMED Code(s): 523849 (2) History of total right hip arthroplasty Current Visit: Yes Status: Acute Code(s): Z96.641 - PRESENCE OF RIGHT ARTIFICIAL HIP JOINT SNOMED Code(s): 550674614226 Plan: 1. NPO 2. Continue IV antibiotics. 3. Weightbearing as tolerated to the right lower extremity. 4. Continue pain control. 5. Appreciate input from internal medicine and infectious disease. 6. Incision and drainage of the right hip scheduled for today pending patient consent.
[2019-05-14] MEDS ORDERED: NALOXONE 0.4 MG/ML 1 ML VIAL IV PRN (08:37)
[2019-05-14] MEDS ORDERED: LACTATED RINGERS 1,000 ML IV ONE ×3 (09:20→10:57)
[2019-05-14] MEDS ORDERED: DEXAMETHASONE SOD PHOS (MDV) 100 MG/10 ML VIAL IV ONE (09:33)
--- NOTE | 2019-05-14 09:40 | P.CONS ---
History of Present Illness - Reason for Consult Consult date: 05/14/19 Infection of right total hip - History of Present Illness This is a 63-year-old male status post right total hip arthroplasty, anterior approach, on 04/07/2019. Patient did not have any consultations in the postop period. Patient states he was doing well at home until late last week and developed fever and chills on Saturday. He states he notices stiffening of his joint and he had to start using a walker versus using a cane. He denies having any significant drainage and is The area clean and dry. He does state he developed redness at the incision site. He contacted Dr. Bernardo's office and he came in to the office and was evaluated and started initially on Keflex but 4 hours after he started having shakes and fever and the antibiotics were then changed to clindamycin. Outpatient lab work was done yesterday that showed a sed rate of 112, C-reactive protein of 230, white count was 7.3, hemoglobin 10.2. Outpatient CAT scan of the right hip also done yesterday is now patient revealed anterior to the right hip and prosthesis is a hypodense collection measuring 7 cm which contained some punctate areas of air. Small area is less well visualized but baby lateral to the greater trochanter as well. Abscess should be considered. The patient is currently on Kefzol and is scheduled for I&D this morning. Review of Systems Constitutional: Reports chills, Reports fatigue, Reports fever, Reports weakness Ears, nose, mouth and throat: Denies dental pain, Denies dysphagia, Denies mouth pain, Denies nasal congestion, Denies nasal discharge, Denies sore throat, Denies vertigo Cardiovascular: Denies decreased exercise tolerance, Denies dyspnea on exertion, Denies edema, Denies leg edema, Denies lightheadedness, Denies syncope Respiratory: Denies cough, Denies cough with sputum, Denies dyspnea, Denies excessive sputum, Denies hemoptysis, Denies home oxygen, Denies wheezing Gastrointestinal: Denies abdominal pain, Denies diarrhea, Denies loss of appetite, Denies nausea, Denies vomiting Genitourinary: Denies dysuria, Denies urinary retention Musculoskeletal: Reports gait dysfunction, Denies frequent falls Integumentary: Reports darkening of skin, Reports wounds Neurological: Denies aphasia, Denies change in speech, Denies confusion, Denies seizures, Denies vertigo Psychiatric: Denies anxiety, Denies depression Past Medical History Past Medical History: Atrial Fibrillation, Cancer, CVA/TIA, Hypertension, Osteoarthritis (OA), Prostate Disorder, Sleep Apnea/CPAP/BIPAP Additional Past Medical History / Comment(s): SEE H & P FOR CARDIOVASCULAR NOTES PROVIDED BY DR. BATES. MRI SHOWED MINI STROKE HAS SEVERE HEARING LOSS LT EAR 2012,USE CPAP,PROSTATE CA-NO RAD OR CHEM. History of Any Multi-Drug Resistant Organisms: None Reported Past Surgical History: Back Surgery, Cardiac Ablation, Hernia Repair, Orthopedic Surgery, Prostate Surgery Additional Past Surgical History / Comment(s): CERVICAL -FUSION C-3-C-7,RIGHT ELBOW, CARPAL TUNNEL, INGUINAL HERNIA , AND LOWER BACK FUSION. CARDIOVERSION IN JANUARY 2015. 06-28-15 CARDIAC ABLATION AND CARDIOVERSION(FOR AFIB), CARDIOVERSION,PROSTATECOMY 2007 Past Anesthesia/Blood Transfusion Reactions: Postoperative Nausea & Vomiting (PONV) Additional Past Anesthesia/Blood Transfusion Reaction / Comm: SLOW TO AWAKEN X1. SISTER HAS PONV. Past Psychological History: No Psychological Hx Reported Additional Psychological History / Comment(s): PT IS RETIRED. Smoking Status: Never smoker Past Alcohol Use History: None Reported Past Drug Use History: None Reported - Past Family History Father Family Medical History: Cancer Additional Family Medical History / Comment(s): LUNG CANCER Mother Family Medical History: Hypertension Additional Family Medical History / Comment(s): ENLARGED HEART Medications and Allergies Home Medications Medication Instructions Recorded Confirmed Type Celecoxib [CeleBREX] 200 mg PO BID 01/24/15 05/13/19 History Ezetimibe/Simvastatin [Vytorin 1 tab PO HS 01/24/15 05/13/19 History 10-40 mg Tablet] Famotidine [Pepcid] 20 mg PO HS 01/24/15 05/13/19 History Furosemide [Lasix] 20 mg PO DAILY 01/24/15 05/13/19 History HYDROcodone/APAP 7.5-325MG [[place] 1 - 2 tab PO TID PRN 01/24/15 05/13/19 History 7.5-325] Rivaroxaban [Xarelto] 20 mg PO HS 01/24/15 05/13/19 History Hypromellose [Artificial Tears] 1 drop BOTH EYES DAILY PRN 03/21/15 05/13/19 History Magnesium Chloride [Slow-Mag] 64 mg PO HS 01/09/16 05/13/19 History Lisinopril [Zestril] 10 mg PO BID 03/31/19 05/13/19 History Vit A/Vit C/Vit E/Zinc/Copper 1 cap PO BID 03/31/19 05/13/19 History [ICAPS SOFTGEL] Dofetilide [Tikosyn] 125 mcg PO BID 05/13/19 05/13/19 History Metoprolol Succinate (ER) [Toprol 25 mg PO BID PRN 05/13/19 05/13/19 History XL] Allergies Allergy/AdvReac Type Severity Reaction Status Date / Time amiodarone AdvReac muscle Verified 05/13/19 23:45 tremors flecainide AdvReac bradycardia Verified 05/13/19 23:45 Physical Exam Vitals: Vital Signs Temp Pulse Resp BP Pulse Ox 05/14/19 09:19 98.6 F 67 16 145/80 96 05/14/19 07:40 98.7 F 60 18 129/75 96 05/13/19 22:59 98.9 F 65 18 147/84 99 Intake and Output 05/13/19 05/14/19 05/14/19 22:59 06:59 14:59 Other: Voiding Method Toilet # Voids 1 Weight 108.5 kg Gen: This is [id number] male. He is resting in a chair and appears to be comfortable and in no acute distress. HEENT: Head is atraumatic, normocephalic. Pupils equal, round. Sclerae is anicteric. NECK: Supple. No JVD. No lymphadenopathy. No thyromegaly. LUNGS: Clear to auscultation. No wheezes or rhonchi. No intercostal retractions. HEART: Regular rate and rhythm. No murmur. ABDOMEN: Soft. Bowel sounds are present. No masses. No tenderness. EXTREMITIES: No pedal edema. No calf tenderness.right hip surgical wound has erythema. No active drainage. No foul order. There is mild dehiscence in the center area. NEUROLOGICAL: Patient is awake, alert and oriented x3. Cranial nerves 2 through 12 are grossly intact. Assessment and Plan Plan: this is a 63-year-old male who presents to the hospital with possible abscess at the site of right total hip arthroplasty. He is currently on. I&D is scheduled for today. Continue supportive care. Further recommendations patient progresses. The above dictated assessment and findings were discussed with Dr. Gonzalez. The impression and plan of care have been directed as dictated. Radha Ellis nurse practitioner acting as scribe for Dr. Gonzalez.
[2019-05-14] MEDS ORDERED: ceFAZolin 3,000 MG in SODIUM CHLORIDE 0.9% IRRIGATIO 3,000 ML IRRIGATION ONE (10:14)
[2019-05-14] MEDS ORDERED: fentaNYL (PF) 50 MCG/ML 2 ML AMP ONE (10:26)
[2019-05-14] MEDS ORDERED: PROPOFOL 10 MG/ML 20 ML VIAL IV ONE (10:26)
[2019-05-14] MEDS ORDERED: SUCCINYLCHOLINE CHLORIDE 100 MG/5 ML SYR IV ONE (10:26)
[2019-05-14] MEDS ORDERED: HYDROmorphone (PF) 1 MG/ML ONE (10:26)
[2019-05-14] MEDS ORDERED: LIDOCAINE 1% INJ 10MG/ML (20 ML MDV) ONE (10:26)
[2019-05-14] MEDS ORDERED: MIDAZOLAM 2 MG/2 ML VIAL ONE (10:26)
[2019-05-14] MEDS ORDERED: TOBRAMYCIN SULFATE 1.2 GM VIAL MISCELLANE ONE (10:56)
[2019-05-14] MEDS ORDERED: VANCOMYCIN 1,000 MG VIAL MISCELLANE ONE (10:57)
[2019-05-14] MEDS ORDERED: VANCOMYCIN IV PER PHARMACY 1 EACH MISC MISCELLANE PRN (11:20)
--- NOTE | 2019-05-14 11:41 | P.OP ---
Date of Procedure: 05/14/19 Preoperative Diagnosis: Infection right total hip arthroplasty Postoperative Diagnosis: Infection right total hip arthroplasty Procedure(s) Performed: Irrigation and debridement of right total hip infection with placement of antibiotic beads Implants: Stimulan antibiotic beads 2 Anesthesia: BABITAA Surgeon: Vik Bernardo Estimated Blood Loss (ml): 200 Pathology: other (Cultures 2) Condition: stable Disposition: PACU Indications for Procedure: This is a 63-year-old gentleman that has had an elective right total hip arthroplasty proximally 5 weeks ago. Patient did very well initially was having no problems. About a week ago he noticed some redness around his incision and was seen in the office and placed on oral antibiotics for superficial cellulitis. He began to have more pain in his hip over the weekend and presented to me in the office yesterday and blood work and a CAT scan was obtained. The blood work and CAT scan were suspicious for deep infection patient was then admitted and brought to the operating room today for incision and drainage of the right hip. Informed consent was obtained. Operative Findings: The operative findings are consistent with a deep space infection of the right total hip Description of Procedure: The patient was seen and evaluated in the preoperative area and the operative site was marked with a skin marker. Patient was brought to the operating room and given 2 g of Ancef by anesthesia. General anesthetic was administered and the patient was placed on the Holland table. The bony prominences well-padded. His right hip was prepped and draped in the usual sterile fashion. A universal timeout was then performed which confirmed the patient's name, surgical site, ALLERGIES, and consent. Prior incision was utilized with the scar being excised. This was carried down to the fascia and hemostasis was obtained on the way. The fascia was then opened and a large amount of purulent material was expressed. This was cultured 2. After all the purulent material was evacuated and the hip was then irrigated with pulsatile lavage with antibiotic solution. After thorough irrigation the hip was then exposed. Any suspicious deep tissue was excised with a Rominger. This included fascia and deep subcutaneous tissue. Next, the wound was then irrigated with Irricept solution. The hip was extensively probed and no other pockets of fluid was encountered. The components were well fixed and no evidence of any loosening. The Stimulan material was mixed and placed into the wound. The fascia was then closed with 2-0 Vicryl followed by 2-0 Vicryl for the subcutaneous tissue and isidro for the skin. A sterile dressing was then applied and patient was transferred to recovery room in stable condition. After the surgery had a lengthy discussion with the patient's about the severity of the problem. The plan going forward will be IV antibiotics as directed by infectious disease followed by close observation if the infection is unable to be cleared we will have to proceed with a stage I revision with removal of implants and placement of antibiotic spacer. The family is aware of this I will speak to the patient about this tomorrow. All questions were answered
[2019-05-14] MEDS: SODIUM CHLORIDE 0.9% 1,000 ML IV SCH ×3 (12:53→22:25)
[2019-05-14] MEDS ORDERED: VANCOMYCIN 1,750 MG in SODIUM CHLORIDE 0.9% 500 ML 500 ML IVPB ONE (16:00)
[2019-05-14] MEDS ORDERED: ceFAZolin IN SWFI 2 GM/20 ML SYRINGE IVP SCH (16:00)
[2019-05-14 19:27] LABS: Basophils % (A) 0 %; Eosinophils % (A) 0 %; HCT 32.9 % (39.0-53.0); HGB 10.2 gm/dL (13.0-17.5); Hypochromasia Moderate; Lymphocytes # (A) 0.8 k/uL (1.0-4.8); Lymphocytes % (A) 9 %; MCH 28.2 pg (25.0-35.0); MCHC 31.1 g/dL (31.0-37.0); MCV 90.6 fL (80.0-100.0); Mean Platelet Volume 7.4; Monocytes # (A) 0.5 k/uL (0-1.0); Monocytes % (A) 6 %; Neutrophils # (A) 7.8 k/uL (1.3-7.7); Neutrophils % (A) 84 %; Platelet Count 277 k/uL (150-450); RBC 3.63 m/uL (4.30-5.90); RDW 15.2 % (11.5-15.5); WBC 9.3 k/uL (3.8-10.6)
[2019-05-14] MEDS: SENNOSIDES-DOCUSATE SODIUM 1 EACH TAB PO SCH (20:12)
[2019-05-14] MEDS ORDERED: ARTIFICIAL TEARS-HYPROMELLOSE DROPS 15 ML BTL BOTH EYES PRN (23:07)
--- NOTE | 2019-05-14 23:10 | P.CONS ---
History of Present Illness - Reason for Consult Consult date: 05/14/19 medical management Requesting physician: Vki Bernardo - Chief Complaint right hip pain - History of Present Illness consultation: This is a pleasant 63-year-old patientwas chronic stable medical conditions include atrial flutter, hypertension, or strength redness,(s) sleep apnea uses CPAP.on 04/07/2019 patient underwent right total hip arthroplasty. About a week ago patient noticed some pain and discomfort in the right hip area. There is some redness. When see his Dr. Bernardo. Patient started on Keflex. Did not improve. It seems he was then given ciprofloxacin. Subsequently in the last couple of days patient started having nausea vomiting fevers or chills. Increasing pain swelling of the right hip joint. Painful and difficult to walk. Patient admitted for the same. Computed tomography scan did show abscess in the area. Patient was taken to the orders earlier today and abscesses drained.antibiotic beads were left in place. Patient feels better after procedure. Appetite had gone down. Review of systems: GEN.: [fever chills] EYES: [None] HEENT: [None] NECK: [None] RESPIRATORY: [None] CARDIOVASCULAR: [None] GASTROINTESTINAL: [None] GENITOURINARY: [None] MUSCULOSKELETAL: [as above] LYMPHATICS: [None] HEMATOLOGICAL: [None] PSYCHIATRY: [None] NEUROLOGICAL: [None] past medical history: Atrial flutter fibrillation, hypertension, primary osteoarthritis, prostate disorder, obstructivesleep apnea, severe hearing loss in the left ear, prostate cancer no treatment. Social history: No smoking. No alcohol. Retired. . Family history: Lung cancer and myocardial infarction Physical examination: VITAL SIGNS: [98.9, 65, 18, 147 was 84, 99% room air] GENERAL: [BMI 34.3, sitting upon a chair, ]. EYES: [Pupils equal. Conjunctiva nic]l. HEENT: [External appearance of nose and ears normal, oral cavity grossly normal]. NECK: [JVD not raised; masses not palpable]. HEART: [First and second heart sounds are normal; no edema]. LUNGS:[ Respiratory rate normal; clear to auscultation]. ABDOMEN: [Soft, nontender, liver spleen not palpable, no masses palpable]. LYMPHATICS: [No lymph nodes palpable in the axilla and neck]. PSYCH: [Alert and oriented x3; mood and affect nic]l. NEUROLOGICAL: [Cranial nerves grossly intact; no facial asymmetry, power and sensation grossly intact]. MUSCULOSKELETAL: Evidence of OA. Dressing over the right hip Investigations, reviewed in the clinical context: white count 9.3, hemoglobin 10.2, platelets 277 Computed tomography scan of the right hip shows anterior to the right hip prosthesis is a hyperdense collection measuring 7 cm Assessment: -Acute abscess anterior to the right hip joint which is prosthetic, with recent surgery, status post I&D -Persistent atrial flutter fibrillation -Essential hypertension -Primary osteoarthritis -Obstructive sleep apnea -Severe hearing loss in the left ear Plan: she is on IV vancomycin. Home medications are resumed. Including Xarelto. Care was discussed with the patient and . Questions were answered. Past Medical History Past Medical History: Atrial Fibrillation, Cancer, CVA/TIA, Hypertension, Osteoarthritis (OA), Prostate Disorder, Sleep Apnea/CPAP/BIPAP Additional Past Medical History / Comment(s): SEE H & P FOR CARDIOVASCULAR NOTES PROVIDED BY DR. BATES. MRI SHOWED MINI STROKE HAS SEVERE HEARING LOSS LT EAR 2012,USE CPAP,PROSTATE CA-NO RAD OR CHEM. History of Any Multi-Drug Resistant Organisms: None Reported Past Surgical History: Back Surgery, Cardiac Ablation, Hernia Repair, Orthopedic Surgery, Prostate Surgery Additional Past Surgical History / Comment(s): CERVICAL -FUSION C-3-C-7,RIGHT ELBOW, CARPAL TUNNEL, INGUINAL HERNIA , AND LOWER BACK FUSION. CARDIOVERSION IN JANUARY 2015. 06-28-15 CARDIAC ABLATION AND CARDIOVERSION(FOR AFIB), CARDIOVERSION,PROSTATECOMY 2007 Past Anesthesia/Blood Transfusion Reactions: Postoperative Nausea & Vomiting (PONV) Additional Past Anesthesia/Blood Transfusion Reaction / Comm: SLOW TO AWAKEN X1. SISTER HAS PONV. Past Psychological History: No Psychological Hx Reported Additional Psychological History / Comment(s): PT IS RETIRED. Smoking Status: Never smoker Past Alcohol Use History: None Reported Past Drug Use History: None Reported - Past Family History Father Family Medical History: Cancer Additional Family Medical History / Comment(s): LUNG CANCER Mother Family Medical History: Hypertension Additional Family Medical History / Comment(s): ENLARGED HEART Medications and Allergies Home Medications Medication Instructions Recorded Confirmed Type Celecoxib [CeleBREX] 200 mg PO BID 01/24/15 05/13/19 History Ezetimibe/Simvastatin [Vytorin 1 tab PO HS 01/24/15 05/13/19 History 10-40 mg Tablet] Famotidine [Pepcid] 20 mg PO HS 01/24/15 05/13/19 History Furosemide [Lasix] 20 mg PO DAILY 01/24/15 05/13/19 History HYDROcodone/APAP 7.5-325MG [[place] 1 - 2 tab PO TID PRN 01/24/15 05/13/19 History 7.5-325] Rivaroxaban [Xarelto] 20 mg PO HS 01/24/15 05/13/19 History Hypromellose [Artificial Tears] 1 drop BOTH EYES DAILY PRN 03/21/15 05/13/19 History Magnesium Chloride [Slow-Mag] 64 mg PO HS 01/09/16 05/13/19 History Lisinopril [Zestril] 10 mg PO BID 03/31/19 05/13/19 History Vit A/Vit C/Vit E/Zinc/Copper 1 cap PO BID 03/31/19 05/13/19 History [ICAPS SOFTGEL] Dofetilide [Tikosyn] 125 mcg PO BID 05/13/19 05/13/19 History Metoprolol Succinate (ER) [Toprol 25 mg PO BID PRN 05/13/19 05/13/19 History XL] Allergies Allergy/AdvReac Type Severity Reaction Status Date / Time amiodarone AdvReac muscle Verified 05/13/19 23:45 tremors flecainide AdvReac bradycardia Verified 05/13/19 23:45 Physical Exam Vitals: Vital Signs Temp Pulse Resp BP Pulse Ox 05/14/19 09:19 98.6 F 67 16 145/80 96 05/14/19 07:40 98.7 F 60 18 129/75 96 05/13/19 22:59 98.9 F 65 18 147/84 99 Intake and Output 05/13/19 05/14/19 05/14/19 22:59 06:59 14:59 Other: Voiding Method Toilet # Voids 1 Weight 108.5 kg Results CBC & Chem 7: 05/14/19 18:39
--- NOTE | 2019-05-14 23:47 | P.CON ---
Consult Note - . Consult date: 05/14/19 Assessment/Plan:: This is a 63-year-old male status post right total hip arthroplasty, anterior approach, on 04/07/2019. Patient did not have any consultations in the postop period. Patient states he was doing well at home until late last week and developed fever and chills on Saturday. He states he notices stiffening of his joint and he had to start using a walker versus using a cane. He denies having any significant drainage and is The area clean and dry. He does state he developed redness at the incision site. He contacted Dr. Bernardo's office and he came in to the office and was evaluated and started initially on Keflex but 4 hours after he started having shakes and fever and the antibiotics were then changed to clindamycin. Outpatient lab work was done yesterday that showed a sed rate of 112, C-reactive protein of 230, white count was 7.3, hemoglobin 10.2. Outpatient CAT scan of the right hip also done yesterday is now patient revealed anterior to the right hip and prosthesis is a hypodense collection measuring 7 cm which contained some punctate areas of air. Small area is less well visualized but baby lateral to the greater trochanter as well. Abscess should be considered. The patient is currently on Kefzol and is scheduled for I&D this morning. Please see the consult was dictated by nurse practitioner Mrs. Radha Ellis. This pleasant gentleman has a history of the degenerative change to his right hip is the only area of significant degenerative joint disease. Was taken to the operating room and had the right total hip arthroplasty performed by the anterior approach. Was doing very well to the sudden onset of some pain swelling and discomfort at the hip. He became progressively more uncomfortable. Became warm erythematous and then he became unable to bear weight. He constantly saw attention. He hasn't taken the operating room where the incision and drainages performed of the infection to that site. The area was debrided antibiotic material was placed. Patient is now feeling considerably better postoperative but has evidence of the markedly elevated sed rate and CRP indicative of the deep infection. Fortunately with improvement of fluid and inflammation he is feeling somewhat better already. Intravenous antibiotic therapy with vancomycin and cefazolin are being utilized until there is further data. He will need PICC line and outpatient intravenous antibiotic therapy. The culture is pending and we'll direct the antibiotic decisions. Adequate protein intake, multivitamin with zinc and activity as per the surgeon. I agree with evaluation, assessment and plan as dictated by nurse practitioner Mrs. Radha Ellis.
[2019-05-15] MEDS: DOFETILIDE 125 MCG CAP PO SCH ×3 (00:55→20:58)
[2019-05-15] MEDS: MAGNESIUM OXIDE 400 MG TAB PO SCH ×2 (00:57→20:59)
[2019-05-15] MEDS: ATORVASTATIN 20 MG TAB PO SCH ×2 (00:58→20:58)
[2019-05-15] MEDS: FUROSEMIDE 20 MG TAB PO SCH ×2 (00:58→10:11)
[2019-05-15] MEDS: LISINOPRIL 10 MG TAB PO SCH ×3 (00:58→20:58)
[2019-05-15] MEDS: FAMOTIDINE 20 MG TAB PO SCH ×2 (00:58→20:58)
[2019-05-15] MEDS: EZETIMIBE 10 MG TAB PO SCH ×2 (01:04→21:16)
[2019-05-15] MEDS ORDERED: VANCOMYCIN 1,750 MG in SODIUM CHLORIDE 0.9% 500 ML 500 ML IVPB SCH (06:00)
[2019-05-15 08:17] LABS: Basophils % (A) 0 %; Eosinophils % (A) 0 %; HCT 31.2 % (39.0-53.0); HGB 9.6 gm/dL (13.0-17.5); Hypochromasia Moderate; Lymphocytes # (A) 1.2 k/uL (1.0-4.8); Lymphocytes % (A) 9 %; MCH 27.7 pg (25.0-35.0); MCHC 30.7 g/dL (31.0-37.0); MCV 90.1 fL (80.0-100.0); Mean Platelet Volume 7.2; Monocytes # (A) 0.9 k/uL (0-1.0); Monocytes % (A) 7 %; Neutrophils # (A) 11.1 k/uL (1.3-7.7); Neutrophils % (A) 83 %; Platelet Count 321 k/uL (150-450); RBC 3.47 m/uL (4.30-5.90); RDW 15.1 % (11.5-15.5); WBC 13.4 k/uL (3.8-10.6)
[2019-05-15 08:29] LABS: African American GFR (CKD) >90 (>60 ml/min/1.73 sqM); Anion Gap 13 mmol/L; Blood Urea Nitrogen 17 mg/dL (9-20); Calcium 9.8 mg/dL (8.4-10.2); Carbon Dioxide 23 mmol/L (22-30); Chloride 101 mmol/L (98-107); Glucose 183 mg/dL (74-99); Potassium 4.6 mmol/L (3.5-5.1); Sodium 137 mmol/L (137-145)
[2019-05-15] MEDS ORDERED: RIVAROXABAN 20 MG TAB PO SCH (09:00)
--- NOTE | 2019-05-15 10:14 | P.PN ---
Subjective Progress Note Date: 05/15/19 This is a 63-year-old male with a past medical history significant for atrial fibrillation, cancer, CVA/TIA, hypertension, osteoarthritis, prostate disorder, and sleep apnea. Patient is admitted for an infection of the right hip. Patient is a known patient of [facility] and presented as an out patient on 05/13/2019 with complaints of increasing pain in the right hip. Patient underwent right total hip arthroplasty on 04/07/2019. Patient was placed on oral Keflex on 05/08/2018 for mild redness at the incision site. Patient states that over the weekend he developed chills, shakes, nausea along with pain in the right hip. Patient states that these symptoms have improved, but his pain in the right hip and has not. Patient states that he is now using a walker to ambulate due to pain. Patient was sent for a CT scan on 05/13/2019 which revealed evidence for possible abscess. Lab work from 05/13/2019 showed elevated CRP and ESR. Patient underwent an irrigation and debridement of the right total hip infection with placement of antibiotic beads on 05/[address] Bernardo. Today's postoperative day #1. The patient states he overall feels much better today. He has been ambulating in the almanza with minimal pain in the right hip. He has been up with physical therapy. He denies nausea, vomiting, chest pain, shortness of breath, fevers, chills. He denies numbness or tingling of the right lower extremity. Vital signs stable. Objective - Vital Signs Vital signs: Vital Signs Temp 99.1 F 05/15/19 07:30 Pulse 68 05/15/19 07:30 Resp 15 05/15/19 07:30 BP 159/74 05/15/19 07:30 Pulse Ox 98 05/15/19 07:30 Intake & Output 05/14/19 05/15/19 05/15/19 18:59 06:59 18:59 Intake Total 1101 Output Total 250 Balance 851 Intake: IV 601 Intake, IV Titration 100 Amount ceFAZolin 1,000 mg In 100 Sodium Chloride 0.9% 50 ml @ 100 mls/hr IVPB Q8H COUNT INCLUDES THE [facility] Rx#:[id number] Oral 400 Output: Estimated Blood Loss 250 Other: Voiding Method Toilet Toilet - Exam On examination, the patient is sitting up in the bedside chair in no apparent distress. The patient is alert and oriented 3. On inspection of the right hip, there is a clean, dry, intact dressing. Minimal bleeding on the dressing. There is a benign surgical incision with isidro in place. No surrounding erythema, warmth, or fluctuance. Patient is able to perform active ROM of his right ankle and foot with no pain or issue. The right lower extremity is warm and well-perfused. Neurovascular and circulatory status is intact of the right lower extremity. - Labs CBC & Chem 7: 05/15/19 07:38 05/15/19 07:38 Labs: Abnormal Lab Results - Last 24 Hours (Table) 05/14/19 05/15/19 05/15/19 Range/Units 18:39 07:38 07:38 WBC 13.4 H (3.8-10.6) k/uL RBC 3.63 L 3.47 L (4.30-5.90) m/uL Hgb 10.2 L 9.6 L (13.0-17.5) gm/dL Hct 32.9 L 31.2 L (39.0-53.0) % MCHC 30.7 L (31.0-37.0) g/dL Neutrophils # 7.8 H 11.1 H (1.3-7.7) k/uL Lymphocytes # 0.8 L (1.0-4.8) k/uL Glucose 183 H (74-99) mg/dL Microbiology - Last 24 Hours (Table) 05/14/19 11:05 Gram Stain - Preliminary Hip - Right Wound Culture - Preliminary 05/14/19 11:05 Gram Stain - Preliminary Hip - Right Wound Culture - Preliminary 05/14/19 11:05 Anaerobic Culture - Preliminary Hip - Right 05/14/19 11:05 Fungal Culture - Preliminary Hip - Right 05/14/19 11:05 Fungal Culture - Preliminary Hip - Right 05/14/19 11:05 Anaerobic Culture - Preliminary Hip - Right Assessment and Plan Assessment: Right total hip arthroplasty infection status-post irrigation and debridement with placement of antibiotic beads on 05/14/[address] Bernardo. Postoperative day #1. Plan: - Daily dressing changes. - Weightbearing as tolerated to the right lower extremity. Continue physical therapy. - Continue routine postoperative care and pain control. - Appreciate input from infectious disease and internal medicine. - Continue IV antibiotics per infectious disease. Patient is awaiting PICC line placement per infectious disease. - Will continue to follow cultures.
[2019-05-15] MEDS: METOPROLOL SUCCINATE (ER) 25 MG TAB.ER.24H PO PRN (10:27)
[2019-05-15] MEDS: HYDROcodone/APAP 5-325MG 1 EACH TAB PO PRN ×2 (15:52→20:59)
[2019-05-15] MEDS: SODIUM CHLORIDE 0.9% 1,000 ML IV SCH (16:07)
--- NOTE | 2019-05-15 16:44 | IR ---
EXAMINATION TYPE: IR cvc insert >=5 years DATE OF EXAM: 05/15/2019 COMPARISON: NONE CLINICAL HISTORY: Infection Needs long-term intravenous access for antibiotics. PROCEDURE: After informed consent, the skin overlying the left brachial vein was localized with ultrasound and n oted to be compressible and patent. An ultrasound image was obtained and submitted on the patient's chart. The overlying skin was prepped and draped and Lidocaine was used for local anesthesia. A ski n anne was made with a scalpel. Access was gained to the vein under ultrasound guidance with a 21 ga uge needle and a 0.018 inch wire was advanced. Access site was dilated with Peel-Away sheath and cat heter tailored to the appropriate length and advanced such that the distal tip is at the cavoatrial j unction. Spot image was obtained verifying placement. Catheter was fixed to the skin and a sterile dressing was placed following hemostasis. Catheter was aspirated and flushed with saline. Patient w as discharged in stable condition without complication. Maximal barrier technique is utilized. Ultra sound image is documented on the chart. Ultrasound used with sterile technique. Fluoro time and fluoroscopic images submitted to document procedure: 0.3 minutes fluoroscopy time, 26 intraoperative C-arm images IMPRESSION: STATUS POST ULTRASOUND AND FLUOROSCOPIC GUIDED PICC LINE PLACEMENT, READY FOR USE. THIS PROCEDURE WAS PERFORMED BY THE UNDERSIGNED.
[2019-05-15] MEDS: VANCOMYCIN 1,750 MG in SODIUM CHLORIDE 0.9% 500 ML 500 ML IVPB SCH ×2 (17:04→23:07)
--- NOTE | 2019-05-15 20:38 | P.PN ---
Progress Note - Text Progress Note Date: 05/15/19 - Chief Complaint right hip pain - History of Present Illness Interim history: This is a pleasant 63-year-old patientwas chronic stable medical conditions include atrial flutter, hypertension, or strength redness,(s) sleep apnea uses CPAP.on 04/07/2019 patient underwent right total hip arthroplasty. About a week ago patient noticed some pain and discomfort in the right hip area. There is some redness. When DrDevante see his Dr. Bernardo. Patient started on Keflex. Did not improve. It seems he was then given ciprofloxacin. Subsequently in the last couple of days patient started having nausea vomiting fevers or chills. Increasing pain swelling of the right hip joint. Painful and difficult to walk. Patient admitted for the same. Computed tomography scan did show abscess in the area. Patient was taken to the orders earlier today and abscesses drained.antibiotic beads were left in place. Patient feels better after procedure. Appetite had gone down. Patient admitted with right hip abscess external to the hardware, status post I &D on 05/14/2019 Today-feeling much better. Has been up in the hallway. Pain discomfort at right hip is much improved. No fever or chills. Diarrhea diet. Cultures are pending. Did get a PICC line today.. Current medications reviewed: IV Ancef and IV vancomycin Physical examination: VITAL SIGNS: 99, 64, 15, 147/84, 99% room air GENERAL: [, sitting upon a chair, appears comfortable]. EYES: [Pupils equal. Conjunctiva nic]l. HEENT: [External appearance of nose and ears normal, oral cavity grossly normal]. NECK: [JVD not raised; masses not palpable]. HEART: [First and second heart sounds are normal; no edema]. LUNGS:[ Respiratory rate normal; clear to auscultation]. ABDOMEN: [Soft, nontender, liver spleen not palpable, no masses palpable]. PSYCH: [Alert and oriented x3; mood and affect nic]l. MUSCULOSKELETAL: Evidence of OA. Dressing over the right hip Investigations, reviewed in the clinical context: White count 13.4, hemoglobin 9.6, potassium 4.6 Cultures pending Assessment: -Acute abscess anterior to the right hip joint which is prosthetic, with recent surgery, status post I&D -Persistent atrial flutter fibrillation -Essential hypertension -Primary osteoarthritis -Obstructive sleep apnea -Severe hearing loss in the left ear Plan: Patient with IV Ancef and IV vancomycin per ID. Did get a PICC line today. Cultures are pending. Up and about. Overall feeling better. He was discussed with the patient . Thank you Dr. Bernardo
[2019-05-15] MEDS: SENNOSIDES-DOCUSATE SODIUM 1 EACH TAB PO SCH (20:59)
[2019-05-15] MEDS: RIVAROXABAN 20 MG TAB PO SCH (20:59)
--- NOTE | 2019-05-15 23:27 | P.PN ---
Subjective Progress Note Date: 05/15/19 This is a 63-year-old male status post right total hip arthroplasty, anterior approach, on 04/07/2019. Patient did not have any consultations in the postop period. Patient states he was doing well at home until late last week and developed fever and chills on Saturday. He states he notices stiffening of his joint and he had to start using a walker versus using a cane. He denies having any significant drainage and is The area clean and dry. He does state he developed redness at the incision site. He contacted Dr. Bernardo's office and he came in to the office and was evaluated and started initially on Keflex but 4 hours after he started having shakes and fever and the antibiotics were then changed to clindamycin. Outpatient lab work was done yesterday that showed a sed rate of 112, C-reactive protein of 230, white count was 7.3, hemoglobin 10.2. Outpatient CAT scan of the right hip also done yesterday is now patient revealed anterior to the right hip and prosthesis is a hypodense collection measuring 7 cm which contained some punctate areas of air. Small area is less well visualized but baby lateral to the greater trochanter as well. Abscess should be considered. The patient is currently on Kefzol and is scheduled for I&D this morning. 05/15/2019 patient is feeling slightly better today his pain is somewhat further improved. He is not having fevers or chills. Cultures pending. Objective - Vital Signs Vital signs: Vital Signs Temp 98.8 F 05/15/19 21:31 Pulse 78 05/15/19 21:31 Resp 18 05/15/19 21:31 BP 152/90 05/15/19 21:31 Pulse Ox 99 05/15/19 21:31 Intake & Output 05/15/19 05/15/19 05/16/19 06:59 18:59 06:59 Intake Total 1220 Balance 1220 Intake: IV 560 Sodium Chloride 0.9% 1, 560 000 ml @ 70 mls/hr IV . [id number] [facility] Rx#:[id number] Oral 660 Other: Voiding Method Toilet Toilet Toilet # Voids 2 - Exam Gen: This is [id number] male. He is resting in a chair and appears to be comfortable and in no acute distress. HEENT: Head is atraumatic, normocephalic. Pupils equal, round. Sclerae is anicteric. NECK: Supple. No JVD. No lymphadenopathy. No thyromegaly. LUNGS: Clear to auscultation. No wheezes or rhonchi. No intercostal retractions. HEART: Regular rate and rhythm. No murmur. ABDOMEN: Soft. Bowel sounds are present. No masses. No tenderness. EXTREMITIES: No pedal edema. No calf tenderness. right hip surgical wound has minimal erythema. No active drainage. No foul order. There is no significant drainage today on the dressing. He is able to arise with some arm assistance NEUROLOGICAL: Patient is awake, alert and oriented x3. Cranial nerves 2 through 12 are grossly intact. - Labs CBC & Chem 7: 05/15/19 07:38 05/15/19 07:38 Labs: Abnormal Lab Results - Last 24 Hours (Table) 05/15/19 05/15/19 Range/Units 07:38 07:38 WBC 13.4 H (3.8-10.6) k/uL RBC 3.47 L (4.30-5.90) m/uL Hgb 9.6 L (13.0-17.5) gm/dL Hct 31.2 L (39.0-53.0) % MCHC 30.7 L (31.0-37.0) g/dL Neutrophils # 11.1 H (1.3-7.7) k/uL Glucose 183 H (74-99) mg/dL Microbiology - Last 24 Hours (Table) 05/14/19 11:05 Gram Stain - Preliminary Hip - Right Wound Culture - Preliminary 05/14/19 11:05 Gram Stain - Preliminary Hip - Right Wound Culture - Preliminary Laboratory Results WBC 13.4 k/uL (3.8-10.6) H 05/15/19 07:38 RBC 3.47 m/uL (4.30-5.90) L 05/15/19 07:38 Hgb 9.6 gm/dL (13.0-17.5) L 05/15/19 07:38 Hct 31.2 % (39.0-53.0) L 05/15/19 07:38 MCV 90.1 fL (80.0-100.0) 05/15/19 07:38 MCH 27.7 pg (25.0-35.0) 05/15/19 07:38 MCHC 30.7 g/dL (31.0-37.0) L 05/15/19 07:38 RDW 15.1 % (11.5-15.5) 05/15/19 07:38 Plt Count 321 k/uL (150-450) 05/15/19 07:38 Neutrophils % 83 % 05/15/19 07:38 Lymphocytes % 9 % 05/15/19 07:38 Monocytes % 7 % 05/15/19 07:38 Eosinophils % 0 % 05/15/19 07:38 Basophils % 0 % 05/15/19 07:38 Neutrophils # 11.1 k/uL (1.3-7.7) H 05/15/19 07:38 Lymphocytes # 1.2 k/uL (1.0-4.8) 05/15/19 07:38 Monocytes # 0.9 k/uL (0-1.0) 05/15/19 07:38 Eosinophils # 0.0 k/uL (0-0.7) 05/15/19 07:38 Basophils # 0.0 k/uL (0-0.2) 05/15/19 07:38 Hypochromasia Moderate 05/15/19 07:38 Sodium 137 mmol/L (137-145) 05/15/19 07:38 Potassium 4.6 mmol/L (3.5-5.1) 05/15/19 07:38 Chloride 101 mmol/L (98-107) 05/15/19 07:38 Carbon Dioxide 23 mmol/L (22-30) 05/15/19 07:38 Anion Gap 13 mmol/L 05/15/19 07:38 BUN 17 mg/dL (9-20) 05/15/19 07:38 Creatinine 0.66 mg/dL (0.66-1.25) 05/15/19 07:38 Est GFR (CKD-EPI)AfAm >90 (>60 ml/min/1.73 sqM) 05/15/19 07:38 Est GFR (CKD-EPI)NonAf >90 (>60 ml/min/1.73 sqM) 05/15/19 07:38 Glucose 183 mg/dL (74-99) H 05/15/19 07:38 Calcium 9.8 mg/dL (8.4-10.2) 05/15/19 07:38 Microbiology 05/14/19 11:05 Hip - Right Gram Stain - Preliminary 05/14/19 11:05 Hip - Right Wound Culture - Preliminary 05/14/19 11:05 Hip - Right Gram Stain - Preliminary 05/14/19 11:05 Hip - Right Wound Culture - Preliminary 05/14/19 11:05 Hip - Right Anaerobic Culture - Preliminary 05/14/19 11:05 Hip - Right Fungal Culture - Preliminary 05/14/19 11:05 Hip - Right Fungal Culture - Preliminary 05/14/19 11:05 Hip - Right Anaerobic Culture - Preliminary Assessment and Plan (1) History of total right hip arthroplasty Narrative/Plan: This pleasant gentleman has a history of the degenerative change to his right hip is the only area of significant degenerative joint disease. Was taken to the operating room and had the right total hip arthroplasty performed by the anterior approach. Was doing very well to the sudden onset of some pain swelling and discomfort at the hip. He became progressively more uncomfortable. Became warm erythematous and then he became unable to bear weight. He constantly saw attention. He hasn't taken the operating room where the incision and drainages performed of the infection to that site. The area was debrided antibiotic material was placed. Patient is now feeling considerably better postoperative but has evidence of the markedly elevated sed rate and CRP indicative of the deep infection. Fortunately with improvement of fluid and inflammation he is feeling somewhat better already. Intravenous antibiotic therapy with vancomycin and cefazolin are being utilized until there is further data. He will need PICC line and outpatient intravenous antibiotic therapy. The culture is pending and we'll direct the antibiotic decisions. Adequate protein intake, multivitamin with zinc and activity as per the surgeon. 05/15/2019 the patient is starting to feel slowly better. Cultures are pending which will further direct a course of antibiotic therapy at home. Currently vancomycin and cefazolin, goal will be for home IV antibiotic therapy. Local wound care as per the surgeon has a foam dressing in place at this time which is not saturated. Patient is having some success with standing and some limited ambulation. IV access been placed today. Current Visit: Yes Status: Acute Code(s): Z96.641 - PRESENCE OF RIGHT ARTIFICIAL HIP JOINT SNOMED Code(s): 489152237891 (2) Fever Current Visit: Yes Status: Acute Code(s): R50.9 - FEVER, UNSPECIFIED SNOMED Code(s): 835187725 (3) Leukocytosis Current Visit: Yes Status: Acute Code(s): D72.829 - ELEVATED WHITE BLOOD CELL COUNT, UNSPECIFIED SNOMED Code(s): 075763619
[2019-05-16] MEDS: SODIUM CHLORIDE 0.9% 1,000 ML IV SCH ×2 (04:30→16:55)
[2019-05-16] MEDS: HYDROcodone/APAP 5-325MG 1 EACH TAB PO PRN ×3 (05:47→19:19)
[2019-05-16] MEDS ORDERED: VANCOMYCIN TROUGH DUE 1 EACH MISC MISCELLANE ONE (07:00)
[2019-05-16] MEDS: DOFETILIDE 125 MCG CAP PO SCH ×2 (09:16→21:33)
[2019-05-16] MEDS: LISINOPRIL 10 MG TAB PO SCH ×2 (09:16→21:33)
[2019-05-16] MEDS: FUROSEMIDE 20 MG TAB PO SCH (09:16)
[2019-05-16] MEDS: METOPROLOL SUCCINATE (ER) 25 MG TAB.ER.24H PO PRN (09:18)
--- NOTE | 2019-05-16 10:31 | P.PN ---
Subjective Progress Note Date: 05/16/19 This is a 63-year-old male with a past medical history significant for atrial fibrillation, cancer, CVA/TIA, hypertension, osteoarthritis, prostate disorder, and sleep apnea. Patient is admitted for an infection of the right hip. Patient is a known patient of [facility] and presented as an out patient on 05/13/2019 with complaints of increasing pain in the right hip. Patient underwent right total hip arthroplasty on 04/07/2019. Patient was placed on oral Keflex on 05/08/2018 for mild redness at the incision site. Patient states that over the weekend he developed chills, shakes, nausea along with pain in the right hip. Patient states that these symptoms have improved, but his pain in the right hip and has not. Patient states that he is now using a walker to ambulate due to pain. Patient was sent for a CT scan on 05/13/2019 which revealed evidence for possible abscess. Lab work from 05/13/2019 showed elevated CRP and ESR. Patient underwent an irrigation and debridement of the right total hip infection with placement of antibiotic beads on 05/14/[address] Bernardo. Today's postoperative day #2. The patient states he overall feels well today. He had the PICC line placed yesterday. He states he experienced increased hip pain this morning. He states he ambulated in the halls this morning, which was not too painful. He denies nausea, vomiting, chest pain, shortness of breath, fevers, chills. He denies numbness or tingling of the right lower extremity. Vital signs stable. Objective - Vital Signs Vital signs: Vital Signs Temp 98.2 F 05/16/19 07:00 Pulse 60 05/16/19 07:00 Resp 16 05/16/19 07:00 BP 135/71 05/16/19 07:00 Pulse Ox 95 05/16/19 07:00 Intake & Output 05/15/19 05/16/19 05/16/19 18:59 06:59 18:59 Intake Total 1220 180 Balance 1220 180 Intake: IV 560 Sodium Chloride 0.9% 1, 560 000 ml @ 70 mls/hr IV . [id number] [facility] Rx#:[id number] Oral 660 180 Other: Voiding Method Toilet Toilet # Voids 1 - Exam On examination, the patient is sitting up in the bedside chair in no apparent distress. The patient is alert and oriented 3. On inspection of the right hip, there is a clean, dry, intact dressing. There is an 80 the dressing is saturated with blood. There is a benign surgical incision with isidro in place. No surrounding erythema, warmth, or fluctuance. Patient is able to perform active ROM of his right ankle and foot with no pain or issue. The right lower extremity is warm and well-perfused. Neurovascular and circulatory status is intact of the right lower extremity. - Labs CBC & Chem 7: 05/15/19 07:38 05/15/19 07:38 Labs: Microbiology - Last 24 Hours (Table) 05/14/19 11:05 Gram Stain - Preliminary Hip - Right Wound Culture - Preliminary 05/14/19 11:05 Gram Stain - Preliminary Hip - Right Wound Culture - Preliminary Assessment and Plan Assessment: Right total hip arthroplasty infection status-post irrigation and debridement with placement of antibiotic beads on 05/14/[address] Bernardo. Postoperative day #2. Plan: - Daily dressing changes. Change once saturated. - Weightbearing as tolerated to the right lower extremity. Continue physical therapy. - Continue routine postoperative care and pain control. - Appreciate input from infectious disease and internal medicine. - Continue IV antibiotics per infectious disease. PICC line placed yesterday. Cultures are pending, will continue to follow.
[2019-05-16] MEDS ORDERED: VANCOMYCIN 1,750 MG in SODIUM CHLORIDE 0.9% 500 ML 500 ML IVPB SCH (11:00)
[2019-05-16] MEDS: KETOROLAC 30 MG/ML 1 ML VIAL IVP SCH ×2 (16:50→23:51)
[2019-05-16] MEDS: EZETIMIBE 10 MG TAB PO SCH (21:33)
[2019-05-16] MEDS: FAMOTIDINE 20 MG TAB PO SCH (21:33)
[2019-05-16] MEDS: ATORVASTATIN 20 MG TAB PO SCH (21:33)
[2019-05-16] MEDS: MAGNESIUM OXIDE 400 MG TAB PO SCH (21:33)
[2019-05-16] MEDS: SENNOSIDES-DOCUSATE SODIUM 1 EACH TAB PO SCH (21:34)
[2019-05-16] MEDS: RIVAROXABAN 20 MG TAB PO SCH (21:34)
--- NOTE | 2019-05-17 00:50 | P.PN ---
Subjective Progress Note Date: 05/16/19 This is a 63-year-old male status post right total hip arthroplasty, anterior approach, on 04/07/2019. Patient did not have any consultations in the postop period. Patient states he was doing well at home until late last week and developed fever and chills on Saturday. He states he notices stiffening of his joint and he had to start using a walker versus using a cane. He denies having any significant drainage and is The area clean and dry. He does state he developed redness at the incision site. He contacted Dr. Bernardo's office and he came in to the office and was evaluated and started initially on Keflex but 4 hours after he started having shakes and fever and the antibiotics were then changed to clindamycin. Outpatient lab work was done yesterday that showed a sed rate of 112, C-reactive protein of 230, white count was 7.3, hemoglobin 10.2. Outpatient CAT scan of the right hip also done yesterday is now patient revealed anterior to the right hip and prosthesis is a hypodense collection measuring 7 cm which contained some punctate areas of air. Small area is less well visualized but baby lateral to the greater trochanter as well. Abscess should be considered. The patient is currently on Kefzol and is scheduled for I&D this morning. 05/15/2019 patient is feeling slightly better today his pain is somewhat further improved. He is not having fevers or chills. Cultures pending. 05/16/2019 patient feels miserable today. He's now been off Celebrex for a few days in his joints are bothering him tremendously. He is having difficulty arising from a sitting position in his shoulders and other joints are quite uncomfortable. Denies fevers or chills. Appetite is adequate. Objective - Vital Signs Vital signs: Vital Signs Temp 98.8 F 05/16/19 20:00 Pulse 61 05/16/19 20:00 Resp 18 05/16/19 20:00 BP 126/76 05/16/19 20:00 Pulse Ox 100 05/16/19 20:00 Intake & Output 05/16/19 05/16/19 05/17/19 06:59 18:59 06:59 Intake Total 1540 140 Balance 1540 140 Intake: IV 280 Sodium Chloride 0.9% 1, 280 000 ml @ 70 mls/hr IV . [id number] [facility] Rx#:[id number] Intake, IV Titration 500 140 Amount Sodium Chloride 0.9% 1, 140 000 ml @ 70 mls/hr IV . [id number] [facility] Rx#:[id number] Vancomycin 1,750 mg In 500 Sodium Chloride 0.9% 500 ml 500 ml @ 167 mls/hr IVPB Q12H [facility] Rx#: [id number] Oral 760 Other: Voiding Method Toilet Toilet Toilet # Voids 1 2 - Exam Gen: This is [id number] male. Very uncomfortable today joints are quite bothersome HEENT: Head is atraumatic, normocephalic. Pupils equal, round. Sclerae is anicteric. NECK: Supple. No JVD. No lymphadenopathy. No thyromegaly. LUNGS: Clear to auscultation. No wheezes or rhonchi. No intercostal retractions. HEART: Regular rate and rhythm. No murmur. ABDOMEN: Soft. Bowel sounds are present. No masses. No tenderness. EXTREMITIES: No pedal edema. No calf tenderness. right hip surgical wound has minimal erythema. No active drainage. No foul order. There is no significant drainage today on the dressing. He is able to arise with some arm assistance NEUROLOGICAL: Patient is awake, alert and oriented x3. - Labs CBC & Chem 7: 05/15/19 07:38 05/15/19 07:38 Labs: Microbiology - Last 24 Hours (Table) 05/14/19 11:05 Anaerobic Culture - Preliminary Hip - Right 05/14/19 11:05 Anaerobic Culture - Preliminary Hip - Right 05/14/19 11:05 Gram Stain - Final Hip - Right Wound Culture - Final 05/14/19 11:05 Gram Stain - Final Hip - Right Wound Culture - Final Laboratory Results WBC 13.4 k/uL (3.8-10.6) H 05/15/19 07:38 RBC 3.47 m/uL (4.30-5.90) L 05/15/19 07:38 Hgb 9.6 gm/dL (13.0-17.5) L 05/15/19 07:38 Hct 31.2 % (39.0-53.0) L 05/15/19 07:38 MCV 90.1 fL (80.0-100.0) 05/15/19 07:38 MCH 27.7 pg (25.0-35.0) 05/15/19 07:38 MCHC 30.7 g/dL (31.0-37.0) L 05/15/19 07:38 RDW 15.1 % (11.5-15.5) 05/15/19 07:38 Plt Count 321 k/uL (150-450) 05/15/19 07:38 Neutrophils % 83 % 05/15/19 07:38 Lymphocytes % 9 % 05/15/19 07:38 Monocytes % 7 % 05/15/19 07:38 Eosinophils % 0 % 05/15/19 07:38 Basophils % 0 % 05/15/19 07:38 Neutrophils # 11.1 k/uL (1.3-7.7) H 05/15/19 07:38 Lymphocytes # 1.2 k/uL (1.0-4.8) 05/15/19 07:38 Monocytes # 0.9 k/uL (0-1.0) 05/15/19 07:38 Eosinophils # 0.0 k/uL (0-0.7) 05/15/19 07:38 Basophils # 0.0 k/uL (0-0.2) 05/15/19 07:38 Hypochromasia Moderate 05/15/19 07:38 Sodium 137 mmol/L (137-145) 05/15/19 07:38 Potassium 4.6 mmol/L (3.5-5.1) 05/15/19 07:38 Chloride 101 mmol/L (98-107) 05/15/19 07:38 Carbon Dioxide 23 mmol/L (22-30) 05/15/19 07:38 Anion Gap 13 mmol/L 05/15/19 07:38 BUN 17 mg/dL (9-20) 05/15/19 07:38 Creatinine 0.66 mg/dL (0.66-1.25) 05/15/19 07:38 Est GFR (CKD-EPI)AfAm >90 (>60 ml/min/1.73 sqM) 05/15/19 07:38 Est GFR (CKD-EPI)NonAf >90 (>60 ml/min/1.73 sqM) 05/15/19 07:38 Glucose 183 mg/dL (74-99) H 05/15/19 07:38 Calcium 9.8 mg/dL (8.4-10.2) 05/15/19 07:38 Vancomycin Trough 22.6 ug/mL 05/16/19 07:07 Microbiology 05/14/19 11:05 Hip - Right Anaerobic Culture - Preliminary 05/14/19 11:05 Hip - Right Anaerobic Culture - Preliminary 05/14/19 11:05 Hip - Right Gram Stain - Final 05/14/19 11:05 Hip - Right Wound Culture - Final 05/14/19 11:05 Hip - Right Gram Stain - Final 05/14/19 11:05 Hip - Right Wound Culture - Final 05/14/19 11:05 Hip - Right Fungal Culture - Preliminary 05/14/19 11:05 Hip - Right Fungal Culture - Preliminary Assessment and Plan (1) History of total right hip arthroplasty Narrative/Plan: This pleasant gentleman has a history of the degenerative change to his right hip is the only area of significant degenerative joint disease. Was taken to the operating room and had the right total hip arthroplasty performed by the anterior approach. Was doing very well to the sudden onset of some pain swelling and discomfort at the hip. He became progressively more uncomfortable. Became warm erythematous and then he became unable to bear weight. He con stantly saw attention. He hasn't taken the operating room where the incision and drainages performed of the infection to that site. The area was debrided antibiotic material was placed. Patient is now feeling considerably better postoperative but has evidence of the markedly elevated sed rate and CRP indicative of the deep infection. Fortunately with improvement of fluid and inflammation he is feeling somewhat better already. Intravenous antibiotic therapy with vancomycin and cefazolin are being utilized until there is further data. He will need PICC line and outpatient intravenous antibiotic therapy. The culture is pending and we'll direct the antibiotic decisions. Adequate protein intake, multivitamin with zinc and activity as per the surgeon. 05/15/2019 the patient is starting to feel slowly better. Cultures are pending which will further direct a course of antibiotic therapy at home. Currently vancomycin and cefazolin, goal will be for home IV antibiotic therapy. Local w ound care as per the surgeon has a foam dressing in place at this time which is not saturated. Patient is having some success with standing and some limited ambulation. IV access been placed today. 05/16/2019 patient was feeling better but now has significant generalized joint complaints appears to be in the bases of his worsening arthritis off of his anti-inflammatory. Short course of Toradol as offer to try to improve his acute inflammation. Cultures are negative and consequently not likely MRSA especially by his preoperative screening and consequently Rocephin is being arranged for the outpatient setting for the infection to the right hip. Orders are given to the supervisor case loading for further arrangement. He has a PICC line in place. Current Visit: Yes Status: Acute Code(s): Z96.641 - PRESENCE OF RIGHT ART IFICIAL HIP JOINT SNOMED Code(s): 190992405383 (2) Fever Current Visit: Yes Status: Acute Code(s): R50.9 - FEVER, UNSPECIFIED SNOMED Code(s): 086812780 (3) Leukocytosis Current Visit: Yes Status: Acute Code(s): D72.829 - ELEVATED WHITE BLOOD CELL COUNT, UNSPECIFIED SNOMED Code(s): 104222085
[2019-05-17] MEDS: HYDROcodone/APAP 5-325MG 1 EACH TAB PO PRN (02:08)
[2019-05-17] MEDS: KETOROLAC 30 MG/ML 1 ML VIAL IVP SCH ×2 (05:37→12:27)
[2019-05-17] MEDS: SODIUM CHLORIDE 0.9% 1,000 ML IV SCH (05:39)
[2019-05-17 07:31] LABS: Basophils # (A) 0.1 k/uL (0-0.2); Basophils % (A) 1 %; Eosinophils # (A) 0.3 k/uL (0-0.7); Eosinophils % (A) 3 %; HCT 32.5 % (39.0-53.0); HGB 10.1 gm/dL (13.0-17.5); Hypochromasia Slight; Lymphocytes # (A) 1.8 k/uL (1.0-4.8); Lymphocytes % (A) 21 %; MCH 27.7 pg (25.0-35.0); MCHC 31.1 g/dL (31.0-37.0); Mean Platelet Volume 6.5; Monocytes # (A) 0.7 k/uL (0-1.0); Monocytes % (A) 8 %; Neutrophils # (A) 5.5 k/uL (1.3-7.7); Neutrophils % (A) 64 %; Platelet Count 362 k/uL (150-450); RBC 3.66 m/uL (4.30-5.90); RDW 15.2 % (11.5-15.5); WBC 8.6 k/uL (3.8-10.6)
[2019-05-17 07:38] VITALS: BP 134/82; PULSE 57; RESP 14; TEMP 97.6
[2019-05-17 07:38] LABS: African American GFR (CKD) >90 (>60 ml/min/1.73 sqM)
[2019-05-17] MEDS: DOFETILIDE 125 MCG CAP PO SCH (08:28)
[2019-05-17] MEDS: FUROSEMIDE 20 MG TAB PO SCH (08:28)
[2019-05-17] MEDS: LISINOPRIL 10 MG TAB PO SCH (08:28)
[2019-05-17] MEDS: METOPROLOL SUCCINATE (ER) 25 MG TAB.ER.24H PO PRN (08:38)
[2019-05-17] MEDS ORDERED: METOPROLOL SUCCINATE (ER) 25 MG TAB.ER.24H PO PRN (08:42)
[2019-05-17] MEDS ORDERED: METOPROLOL SUCCINATE (ER) 25 MG TAB.ER.24H PO SCH (09:00)
[2019-05-17] MEDS ORDERED: VANCOMYCIN TROUGH DUE 1 EACH MISC MISCELLANE ONE (10:00)
--- NOTE | 2019-05-17 12:17 | P.DS ---
Providers Date of admission: 05/13/19 22:35 Expected date of discharge: 05/17/19 Attending physician: Vik Bernardo Consults: 05/13/19 19:43 Consult Physician Routine Consulting Provider: Benson Copeland Consult Reason/Comments: medical management Do you want consulting provider notified?: Yes 05/13/19 19:44 Consult Physician Routine Consulting Provider: Lorenzo Gonzalez Consult Reason/Comments: Infection right total hip Do you want consulting provider notified?: Yes Primary care physician: Stated None Hospital Course: This is a 63-year-old male with a past medical history significant for atrial fibrillation, cancer, CVA/TIA, hypertension, osteoarthritis, prostate disorder, and sleep apnea that was direct admitted to [facility] on 05/13/19 due to an infection of the right hip. The patient underwent a right total hip arthroplasty on 04/07/[address] Bernardo. The patient was placed on oral Keflex on 05/08/19 for mild redness at the incision site. He subsequently developed chills, shakes, nausea along with pain in the right hip. Patient was sent for a computed tomography scan on 05/13/19, which reveal evidence for possible abscess. Lab work from 05/13/19 also showed elevated CRP and ESR. The patient underwent an irrigation and debridement of right total hip infection with placement of antibiotic bead unsuccessfully 05/14/[address] Bernardo. Consults were placed to internal medicine and infectious disease. Patient was admitted to [facility] following the procedure. Procedure was performed without complication or sequelae. The patient is doing well postoperatively. Vital signs are stable on postoperative day #3. This patient was seen and examined bedside this morning. The patient states he was having multiple joint pains yesterday afternoon, he states he takes Celebrex on a daily basis for his osteoarthritis. Dr. Gonzalez ordered Toradol for the patient yesterday, which he states helped his pain tremendously. He states he is feeling great today, he has no complaints. He has been up walking the halls with minimal pain in the right hip. He denies chest pain, shortness of breath, nausea, vomiting, fever, chills. He has no new complaints today. On examination, the patient is sitting up in the bedside chair in no apparent distress. The patient is alert and oriented 3. On inspection of the right hip, there is a clean, dry, intact dressing. There is a minimal amount of serosanguinous drainage on the dressing. No active drainage. There is a benign surgical incision with isidro in place. No surrounding erythema, warmth, or fluctuance. Patient is able to perform active ROM of his right ankle and foot with no pain or issue. The right lower extremity is warm and well-perfused. Neurovascular and circulatory status is intact of the right lower extremity. Calves are soft and nontender bilaterally. The patient is discharged in good condition today, pending medical clearance and infectious disease clearance. Please see discharge orders. Patient Condition at Discharge: Fair Plan - Discharge Summary Discharge Rx Participant: Yes New Discharge Prescriptions: New cefTRIAXone [Rocephin] 2,000 mg IVPB Q24HR #42 vial No Action HYDROcodone/APAP 7.5-325MG [[place] 7.5-325] 1 - 2 tab PO TID PRN PRN Reason: Pain Rivaroxaban [Xarelto] 20 mg PO HS Ezetimibe/Simvastatin [Vytorin 10-40 mg Tablet] 1 tab PO HS Famotidine [Pepcid] 20 mg PO HS Furosemide [Lasix] 20 mg PO DAILY Celecoxib [CeleBREX] 200 mg PO BID Hypromellose [Artificial Tears] 1 drop BOTH EYES DAILY PRN PRN Reason: Dry Eye(S) Magnesium Chloride [Slow-Mag] 64 mg PO HS Lisinopril [Zestril] 10 mg PO BID Vit A/Vit C/Vit E/Zinc/Copper [ICAPS SOFTGEL] 1 cap PO BID Dofetilide [Tikosyn] 125 mcg PO BID Metoprolol Succinate (ER) [Toprol XL] 25 mg PO DAILY Metoprolol Succinate (ER) [Toprol XL] 1 tab PO HS PRN PRN Reason: BP/Heart rate Discharge Medication List Celecoxib [CeleBREX] 200 mg PO BID 01/24/15 [History] Ezetimibe/Simvastatin [Vytorin 10-40 mg Tablet] 1 tab PO HS 01/24/15 [History] Famotidine [Pepcid] 20 mg PO HS 01/24/15 [History] Furosemide [Lasix] 20 mg PO DAILY 01/24/15 [History] HYDROcodone/APAP 7.5-325MG [[place] 7.5-325] 1 - 2 tab PO TID PRN 01/24/15 [History] Rivaroxaban [Xarelto] 20 mg PO HS 01/24/15 [History] Hypromellose [Artificial Tears] 1 drop BOTH EYES DAILY PRN 03/21/15 [History] Magnesium Chloride [Slow-Mag] 64 mg PO HS 01/09/16 [History] Lisinopril [Zestril] 10 mg PO BID 03/31/19 [History] Vit A/Vit C/Vit E/Zinc/Copper [ICAPS SOFTGEL] 1 cap PO BID 03/31/19 [History] Dofetilide [Tikosyn] 125 mcg PO BID 05/13/19 [History] Metoprolol Succinate (ER) [Toprol XL] 25 mg PO DAILY 05/13/19 [History] cefTRIAXone [Rocephin] 2,000 mg IVPB Q24HR #42 vial 05/16/19 [Rx] Metoprolol Succinate (ER) [Toprol XL] 1 tab PO HS PRN 05/17/19 [History] Follow up Appointment(s)/Referral(s): [facility], [NON-STAFF] - 05/18/19 [facility], [REFERRING] - (They can be contacted at .) Ambulatory/Diagnostic Orders: Basic Metabolic Panel [LAB.AMB] Location: None Selected Complete Blood Count w/diff [LAB.AMB] Location: None Selected Miscellaneous Lab Order [LAB.AMB] Location: None Selected Activity/Diet/Wound Care/Special Instructions: - Weight-bearing as tolerated on your left lower extremity. - Daily dressing changes. Changes dressing is becomes saturated. - IV antibiotics per infectious disease recommendations. - Follow-up at your previously scheduled appointment in the office with Esther Almanza PA-C, on Saturday05/20/19. - Call the office with any questions or concerns, Discharge Disposition: HOME SELF-CARE
--- NOTE | 2019-05-17 19:40 | P.PN ---
Progress Note - Text Progress Note Date: 05/16/19 Chief Complaint right hip pain - History of Present Illness Interim history: This is a pleasant 63-year-old patientwas chronic stable medical conditions include atrial flutter, hypertension, or strength redness,(s) sleep apnea uses CPAP.on 04/07/2019 patient underwent right total hip arthroplasty. About a week ago patient noticed some pain and discomfort in the right hip area. There is some redness. When DrDevante see his Dr. Bernardo. Patient started on Keflex. Did not improve. It seems he was then given ciprofloxacin. Subsequently in the last couple of days patient started having nausea vomiting fevers or chills. Increasing pain swelling of the right hip joint. Painful and difficult to walk. Patient admitted for the same. Computed tomography scan did show abscess in the area. Patient was taken to the orders earlier today and abscesses drained.antibiotic beads were left in place. Patient feels better after procedure. Appetite had gone down. Patient admitted with right hip abscess external to the hardware, status post I& D on 05/14/2019 Review of systems: Was done for constitutional, cardiovascular, GI, pulmonary. Musculoskeletal relevant finding as above Today-continues to feel better. Up and about in the hallway. Did have some drainage on the right hip site. Dressing was changed. No fever or chills. Overall feels better. Current medications reviewed: IV Ancef and IV vancomycin Physical examination: VITAL SIGNS: 97.7, 62, 14, 139/83, 98% room air GENERAL: [, sitting upon a chair, appears comfortable]. EYES: [Pupils equal. Conjunctiva nic]l. HEENT: [External appearance of nose and ears normal, oral cavity grossly normal]. NECK: [JVD not raised; masses not palpable]. HEART: [First and second heart sounds are normal; no edema]. LUNGS:[ Respiratory rate normal; clear to auscultation]. ABDOMEN: [Soft, nontender, liver spleen not palpable, no masses palpable]. PSYCH: [Alert and oriented x3; mood and affect nic]l. MUSCULOSKELETAL: Evidence of OA. Dressing over the right hip Investigations, reviewed in the clinical context: Vancomycin trough 22.6 Cultures pending Assessment: -Acute abscess anterior to the right hip joint which is prosthetic, with recent surgery, status post I&D -Persistent atrial flutter fibrillation -Essential hypertension -Primary osteoarthritis -Obstructive sleep apnea -Severe hearing loss in the left ear Plan: Continue current medications and antibiotics. Overall doing much better. Hopefully discharge in next day or so. Thank you Dr. Bernardo
--- NOTE | 2019-05-17 19:43 | P.PN ---
Progress Note - Text Progress Note Date: 05/17/19 Chief Complaint right hip pain - History of Present Illness Interim history: This is a pleasant 63-year-old patientwas chronic stable medical conditions include atrial flutter, hypertension, or strength redness,(s) sleep apnea uses CPAP.on 04/07/2019 patient underwent right total hip arthroplasty. About a week ago patient noticed some pain and discomfort in the right hip area. There is some redness. When DrDevante see his Dr. Bernardo. Patient started on Keflex. Did not improve. It seems he was then given ciprofloxacin. Subsequently in the last couple of days patient started having nausea vomiting fevers or chills. Increasing pain swelling of the right hip joint. Painful and difficult to walk. Patient admitted for the same. Computed tomography scan did show abscess in the area. Patient was taken to the orders earlier today and abscesses drained.antibiotic beads were left in place. Patient feels better after procedure. Appetite had gone down. Patient admitted with right hip abscess external to the hardware, status post I&D on 05/14/2019 Review of systems: Was done for constitutional, cardiovascular, GI, pulmonary. Musculoskeletal relevant finding as above Today-stable. No new issues. Pain well controlled. No fever or chills. Ambulatory Current medications reviewed: IV ceftriaxone Physical examination: VITAL SIGNS: Afebrile, 57, 14, 134/82, melena 9% room air GENERAL: [Sitting up, comfortable]. EYES: [Pupils equal. Conjunctiva nic]l. HEENT: [External appearance of nose and ears normal, oral cavity grossly normal]. NECK: [JVD not raised; masses not palpable]. HEART: [First and second heart sounds are normal; no edema]. LUNGS:[ Respiratory rate normal; clear to auscultation]. ABDOMEN: [Soft, nontender, liver spleen not palpable, no masses palpable]. PSYCH: [Alert and oriented x3; mood and affect nic]l. MUSCULOSKELETAL: Evidence of OA. Dressing over the right hip Investigations, reviewed in the clinical context: White count 8.6, hemoglobin 10.1 Assessment: -Acute abscess anterior to the right hip joint which is prosthetic, with recent surgery, status post I&D -Persistent atrial flutter fibrillation -Essential hypertension -Primary osteoarthritis -Obstructive sleep apnea -Severe hearing loss in the left ear Plan: Spoke to the patient. Spoke to the watch caser. Home IV antibiotic [place]. Patient will get 42 days of IV ceftriaxone. Stable Thank you Dr. Bernardo
== END 2019-05-17 13:28 | disposition home or self-care (01) | DRG 464 ==
LOC: 4SSUR 22:35
PROVIDERS: ADMIT Orthopaedic Surgery; ATTEND Orthopaedic Surgery
PROC: 3E0U029 Introduction of Other Anti-infective into Joints, Open Approach (ICD-10-PCS; 2019-05-14)
PROC: 0JBL0ZZ Excision of Right Upper Leg Subcutaneous Tissue and Fascia, Open Approach (ICD-10-PCS; principal; 2019-05-14 09:45)
PROC: 02HV33Z Insertion of Infusion Device into Superior Vena Cava, Percutaneous Approach (ICD-10-PCS; 2019-05-15)
DX: T84.51XA Infection and inflammatory reaction due to internal right hip prosthesis, initial encounter (principal); I48.1 Persistent atrial fibrillation; I48.92 Unspecified atrial flutter; D72.829 Elevated white blood cell count, unspecified; G47.33 Obstructive sleep apnea (adult) (pediatric); H91.92 Unspecified hearing loss, left ear; I10 Essential (primary) hypertension; Z79.01 Long term (current) use of anticoagulants; M19.90 Unspecified osteoarthritis, unspecified site; Y83.1 Surgical operation with implant of artificial internal device as the cause of abnormal reaction of the patient, or of later complication, without mention of misadventure at the time of the procedure; Z79.1 Long term (current) use of non-steroidal anti-inflammatories (NSAID); Z79.899 Other long term (current) drug therapy; Z80.1 Family history of malignant neoplasm of trachea, bronchus and lung; Z82.49 Family history of ischemic heart disease and other diseases of the circulatory system; Z85.46 Personal history of malignant neoplasm of prostate; Z86.73 Personal history of transient ischemic attack (TIA), and cerebral infarction without residual deficits; Z96.641 Presence of right artificial hip joint; Z98.1 Arthrodesis status; Z90.79 Acquired absence of other genital organ(s); R26.9 Unspecified abnormalities of gait and mobility; Z88.8 Allergy status to other drugs, medicaments and biological substances
CPT/HCPCS: 36573; 80048; 80202; 82565; 85025; 87070; 87075; 87102; 87205

== ENCOUNTER → 2019-08-05 | Outpatient (CLI) | payer MEDICARE ==
[2019-08-05 14:37] LABS: Basophils # (A) 0.1 k/uL (0-0.2); Basophils % (A) 1 %; Eosinophils # (A) 0.2 k/uL (0-0.7); Eosinophils % (A) 4 %; HCT 38.3 % (39.0-53.0); HGB 12.4 gm/dL (13.0-17.5); Lymphocytes # (A) 1.4 k/uL (1.0-4.8); Lymphocytes % (A) 29 %; MCH 28.2 pg (25.0-35.0); MCHC 32.5 g/dL (31.0-37.0); MCV 86.7 fL (80.0-100.0); Mean Platelet Volume 7.3; Monocytes # (A) 0.5 k/uL (0-1.0); Monocytes % (A) 10 %; Neutrophils # (A) 2.4 k/uL (1.3-7.7); Neutrophils % (A) 52 %; Platelet Count 191 k/uL (150-450); RBC 4.42 m/uL (4.30-5.90); RDW 15.6 % (11.5-15.5); WBC 4.7 k/uL (3.8-10.6)
[2019-08-05 15:57] LABS: Erythrocyte Sedimentation Rate 8 mm/hr (0-15)
== END | disposition home or self-care (01) ==
LOC: LABWHC1 12:07
PROVIDERS: ATTEND Orthopaedic Surgery
DX: Z47.1 Aftercare following joint replacement surgery (principal); E78.5 Hyperlipidemia, unspecified; I11.9 Hypertensive heart disease without heart failure; M25.551 Pain in right hip; Z85.9 Personal history of malignant neoplasm, unspecified; Z96.641 Presence of right artificial hip joint
CPT/HCPCS: 36415; 85025; 85652; 86140

== ENCOUNTER → 2020-01-02 | Outpatient (CLI) | payer MEDICARE ==
[2020-01-02 10:06] LABS: Appearance,Urine Clear (Clear); Bilirubin,Urine Negative (Negative); Blood,Urine Negative (Negative); Color,Urine Light Yellow; Glucose,Urine (UA) Negative (Negative); Ketones,Urine Negative (Negative); Leukocyte Esterase,Urine Negative (Negative); Nitrite,Urine Negative (Negative); Protein,Urine Negative (Negative); Specific Gravity,Urine 1.006 (1.001-1.035); Urobilinogen,Urine <2.0 mg/dL (<2.0)
[2020-01-02 10:08] LABS: HCT 42.1 % (39.0-53.0); HGB 13.5 gm/dL (13.0-17.5); MCH 28.9 pg (25.0-35.0); MCV 90.3 fL (80.0-100.0); Mean Platelet Volume 7.3; Platelet Count 162 k/uL (150-450); RBC 4.66 m/uL (4.30-5.90); RDW 13.3 % (11.5-15.5); WBC 4.1 k/uL (3.8-10.6)
[2020-01-02 17:13] LABS: Albumin 4.5 g/dL (3.80-4.90); Albumin/Globulin Ratio 2.65 (1.60-3.17); Anion Gap 7.9 mmol/L (4.00-12.00); BUN/Creat Ratio 14.44 Ratio (12.00-20.00); Calcium 9.1 mg/dL (8.7-10.3); Carbon Dioxide 28.1 mmol/L (21.6-31.8); Chol/HDL Ratio 3.37; Globulin 1.7 g/dL (1.6-3.3); Non-African American GFR(CKD) 90.6 (60.0-200.0); Potassium 4.3 mmol/L (3.5-5.5); Total Bilirubin 0.4 mg/dL (0.3-1.2); Total Protein 6.2 g/dL (6.2-8.2)
== END | disposition home or self-care (01) ==
LOC: LABWHC1 09:22
PROVIDERS: ATTEND Family Medicine
DX: Z00.01 Encounter for general adult medical examination with abnormal findings (principal); E66.3 Overweight; N40.1 Benign prostatic hyperplasia with lower urinary tract symptoms; R53.83 Other fatigue
CPT/HCPCS: 36415; 80053; 80061; 81003; 84153; 85027

== ENCOUNTER → 2020-06-06 | Outpatient (CLI) | payer MEDICARE ==
[2020-06-06 13:22] LABS: Basophils % (A) 1 %; Eosinophils # (A) 0.1 k/uL (0-0.7); Eosinophils % (A) 3 %; HCT 39.6 % (39.0-53.0); HGB 13.4 gm/dL (13.0-17.5); Lymphocytes # (A) 1.3 k/uL (1.0-4.8); Lymphocytes % (A) 32 %; MCH 31.1 pg (25.0-35.0); MCHC 33.9 g/dL (31.0-37.0); MCV 91.8 fL (80.0-100.0); Mean Platelet Volume 7.7; Monocytes # (A) 0.4 k/uL (0-1.0); Monocytes % (A) 10 %; Neutrophils # (A) 2.2 k/uL (1.3-7.7); Neutrophils % (A) 52 %; Platelet Count 145 k/uL (150-450); RBC 4.31 m/uL (4.30-5.90); RDW 13.3 % (11.5-15.5); WBC 4.2 k/uL (3.8-10.6)
[2020-06-06 21:28] LABS: Erythrocyte Sedimentation Rate 5 mm/Hr (0-20)
== END | disposition home or self-care (01) ==
LOC: LABWHC1 12:14
PROVIDERS: ATTEND Orthopaedic Surgery
DX: Z09 Encounter for follow-up examination after completed treatment for conditions other than malignant neoplasm (principal); Z96.641 Presence of right artificial hip joint; I10 Essential (primary) hypertension; Z85.46 Personal history of malignant neoplasm of prostate; I51.9 Heart disease, unspecified; M25.551 Pain in right hip; E78.5 Hyperlipidemia, unspecified; S71.001A Unspecified open wound, right hip, initial encounter
CPT/HCPCS: 36415; 85025; 85652; 86140

== ENCOUNTER → 2020-08-16 | Outpatient (CLI) | payer MEDICARE ==
[2020-08-16 14:56] LABS: HCT 39.7 % (39.0-53.0); MCHC 32.7 g/dL (31.0-37.0); MCV 91.7 fL (80.0-100.0); Mean Platelet Volume 7.1; Platelet Count 170 k/uL (150-450); RBC 4.32 m/uL (4.30-5.90); RDW 13.3 % (11.5-15.5); WBC 5.2 k/uL (3.8-10.6)
[2020-08-16 15:05] LABS: African American GFR (CKD) >90 (>60 ml/min/1.73 sqM); Blood Urea Nitrogen 24 mg/dL (9-20); Magnesium 2.1 mg/dL (1.6-2.3); Non-African American GFR(CKD) 89 (>60 ml/min/1.73 sqM)
== END | disposition home or self-care (01) ==
LOC: LABPAT 11:59
PROVIDERS: ATTEND Internal Medicine Clinical Cardiac Electrophysiology
DX: Z01.818 Encounter for other preprocedural examination (principal); I48.19 Other persistent atrial fibrillation
CPT/HCPCS: 82565; 83735; 84520; 85027

== ENCOUNTER → 2020-08-16 | Outpatient (CLI) | payer MEDICARE | END | disposition home or self-care (01) | LOC: LABWHC1 12:05 | PROVIDERS: ATTEND Internal Medicine Infectious Disease | DX: M00.9 Pyogenic arthritis, unspecified (principal) | CPT/HCPCS: 36415; 85652; 86140 ==

== ENCOUNTER 2020-08-22 10:15 | Day surgery (SDC) | payer MEDICARE ==
[2020-08-22] MEDS ORDERED: SODIUM CHLORIDE 0.9% 1,000 ML IV ONE ×2 (10:27→16:01)
[2020-08-22] MEDS ORDERED: MIDAZOLAM 2 MG/2 ML VIAL ONE (11:31)
[2020-08-22] MEDS ORDERED: fentaNYL (PF) 50 MCG/ML 2 ML AMP ONE (11:31)
[2020-08-22] MEDS ORDERED: PHENYLEPHRINE-0.9% NACL SYG 1 MG/10 ML SYRINGE ONE (11:31)
[2020-08-22] MEDS ORDERED: LIDOCAINE 1% INJ 10MG/ML (20 ML MDV) ONE (11:31)
[2020-08-22] MEDS ORDERED: FUROSEMIDE 10 MG/ML 2 ML VIAL ONE (11:31)
[2020-08-22] MEDS ORDERED: HEPARIN SODIUM,PORCINE 10,000 UNIT/ML 1 ML VIAL ONE (11:31)
[2020-08-22] MEDS ORDERED: NEOSTIGMINE 1 MG/ML 10 ML VIAL ONE (11:31)
[2020-08-22] MEDS ORDERED: ISOPROTERENOL 250 MCG/1.25 ML SYR IV ONE (11:31)
[2020-08-22] MEDS ORDERED: SUCCINYLCHOLINE CHLORIDE 100 MG/5 ML SYR IV ONE (11:31)
[2020-08-22] MEDS ORDERED: PROTAMINE SULFATE 10 MG/ML 5 ML VIAL IV ONE (11:31)
[2020-08-22] MEDS ORDERED: PROPOFOL 10 MG/ML 20 ML VIAL IV ONE (11:31)
[2020-08-22] MEDS ORDERED: GLYCOPYRROLATE 0.2 MG/ML 2 ML VIAL ONE (11:31)
[2020-08-22] MEDS ORDERED: ROCURONIUM BROMIDE 10 MG/ML 5 ML VIAL IV ONE (11:31)
[2020-08-22] MEDS ORDERED: LIDOCAINE URO-JET JELLY 2% 5 ML KIT URETHRAL ONE (12:09)
[2020-08-22] MEDS ORDERED: LIDOCAINE 1% INJ 10MG/ML (20 ML MDV) SQ ONE (12:38)
[2020-08-22] MEDS ORDERED: SODIUM CHLORIDE 0.9% 100 ML with ceFAZolin 2,000 MG IV ONE ×2 (12:43)
[2020-08-22] MEDS ORDERED: HEPARIN SOD,PORK IN 0.45% NACL 25,000 UNIT in 0.45% NACL 1 250ML.BAG IV ONE (13:03)
[2020-08-22] MEDS ORDERED: HEPARIN SODIUM (1,000 UNIT/ML) 1,000 UNIT in SODIUM CHLORIDE 0.9% 1,000 ML IRRIGATION ONE (13:04)
[2020-08-22] MEDS ORDERED: FUROSEMIDE 10 MG/ML 4 ML VIAL ONE (16:07)
[2020-08-22] MEDS ORDERED: ACETAMINOPHEN TAB 325 MG TAB PO PRN (16:36)
[2020-08-22] MEDS ORDERED: HYDROcodone/APAP 5-325MG 1 EACH TAB PO PRN (16:36)
--- NOTE | 2020-08-22 16:41 | P.HPCAR ---
History of Present Illness This is Dr. Fagan dictating an H/P on this patient The patient was interviewed and examined IMPRESSION / ASSESSMENT: Recurrent symptomatic atrial tachycardia associated with shortness of breath Persistent atrial fibrillation on dofetilide Breakthrough episodes on dofetilide Sick Sinus Syndrome and bradycardia with tiredness and fatigue and shortness of breath Hypertension Dyslipidemia PLAN: Diagnostic EP study and efficacy ablation for atrial tachycardia and any other inducible arrhythmias HPI Patient complains of recurrent palpitations and shortness of breath Increasing fatigue which is better after stopping metoprolol He complains of recurrent palpitations but no loss of consciousness He is experiencing frequent episodes of an atrial tachycardia and despite being rate controlled he still is quite symptomatic from this He takes Xarelto for stroke prophylaxis ROS: No fever chills or rigors, no cough, phlegm or expectoration, no nausea, vomiting or diarrhea, no hematuria, dysuria, no musculoskeletal complaints, no strokes or seizures, no skin lesions. EXAMINATION: Afebrile 98.1F pulse rate in the 50s blood pressure 177/85 mmHg respirations normal Orthopnea Normal heart sounds normal S1 normal S2 No murmurs or gallops or rub Abdomen soft Extended is warm no edema REVIEW OF LABS, ECG & MEDICAL DATA History of hypertension History of persistent atrial fibrillation History of multiple ablations in the past Physical Exam Vitals: Vital Signs Temp Pulse Resp BP Pulse Ox 08/22/20 10:55 98.1 F 56 L 16 177/85 98 Intake and Output 08/22/20 08/22/20 08/22/20 06:59 14:59 22:59 Intake Total 1736 0 Output Total 950 Balance 1736 -950 Intake: IV 1736 0 Output: Urine 950 Other: Weight 106.6 kg Past Medical History Past Medical History: Atrial Fibrillation, Cancer, CVA/TIA, Hypertension, Osteoarthritis (OA), Prostate Disorder, Sleep Apnea/CPAP/BIPAP Additional Past Medical History / Comment(s): SEE H & P FOR CARDIOVASCULAR NOTES PROVIDED BY DR. FAGAN. BACTERIAL INFECTION IN RIGHT HIP AND WAS PUT ON ANTIBIOTICS FOR ONE YEAR (DR. JAY) AND STILL TAKING. MRI SHOWED MINI STROKE, NO RESIDUAL. HAS SEVERE HEARING LOSS LT EAR. USE CPAP. PROSTATE CA- NO RAD OR CHEM. RIGHT ELBOW DOES NOT STRAIGHTEN OUT DUE TO PRIOR FRACTURE. History of Any Multi-Drug Resistant Organisms: None Reported Past Surgical History: Back Surgery, Cardiac Ablation, Hernia Repair, Orthopedic Surgery, Prostate Surgery Additional Past Surgical History / Comment(s): CERVICAL -FUSION C-3-C-7,RIGHT ELBOW, CARPAL TUNNEL, INGUINAL HERNIA , AND LOWER BACK FUSION. CARDIOVERSION IN JANUARY 2015. 06-28-15 CARDIAC ABLATION AND CARDIOVERSION(FOR AFIB), CARDIOVERSION,PROSTATECOMY 2008. CATARACT RIGHT EYE. Past Anesthesia/Blood Transfusion Reactions: Postoperative Nausea & Vomiting (PONV) Additional Past Anesthesia/Blood Transfusion Reaction / Comment(s): SLOW TO AWAKEN X1. SISTER HAS PONV. Past Psychological History: No Psychological Hx Reported Smoking Status: Never smoker Past Alcohol Use History: None Reported Past Drug Use History: None Reported - Past Family History Father Family Medical History: Cancer Additional Family Medical History / Comment(s): LUNG CANCER Mother Family Medical History: Hypertension Additional Family Medical History / Comment(s): ENLARGED HEART Physical Examination Vital Signs Temp Pulse Resp BP Pulse Ox 08/22/20 10:55 98.1 F 56 L 16 177/85 98 Intake and Output 08/22/20 08/22/20 08/22/20 06:59 14:59 22:59 Intake Total 1736 0 Output Total 950 Balance 1736 -950 Intake: IV 1736 0 Output: Urine 950 Other: Weight 106.6 kg Results Current Medications Generic Name Dose Route Start Last Admin Trade Name Freq PRN Reason Stop Dose Admin Acetaminophen 650 mg 08/22/20 16:36 Acetaminophen Tab 325 Mg Tab PO Q6HR PRN Mild Pain Hydrocodone Bitart/Acetaminophen 1 each 08/22/20 16:36 Hydrocodone/Apap 5-325mg 1 Each Tab PO Q4HR PRN Moderate Pain Dofetilide 125 mcg 08/22/20 21:00 Dofetilide 125 Mcg Cap PO BID VIVIANA Famotidine 20 mg 08/22/20 21:00 Famotidine 20 Mg Tab PO HS VIVIANA Furosemide 20 mg 08/23/20 09:00 Furosemide 20 Mg Tab PO QAM VIVIANA Sodium Chloride 1,000 mls @ 20 mls/hr 08/22/20 06:07 Saline 0.9% IV .Q24H VIVIANA Acetaminophen 1,000 mg/ IV 100 mls @ 400 mls/hr 08/22/20 16:36 Solution IVPB 08/22/20 16:50 ONCE ONE Lisinopril 10 mg 08/22/20 21:00 Lisinopril 10 Mg Tab PO BID VIVIANA Non-Formulary Medication 500 mg 08/22/20 21:00 Cefadroxil [Duricef] PO BID VIVIANA Non-Formulary Medication 200 mg 08/22/20 21:00 Celecoxib PO BID VIVIANA Non-Formulary Medication 1 tab 08/22/20 21:00 Ezetimibe/Simvastatin [Vytorin 10-40 Mg Tablet] PO HS VIVIANA Non-Formulary Medication 64 mg 08/22/20 21:00 Magnesium Chloride PO HS VIVIANA Rivaroxaban 20 mg 08/22/20 21:00 Rivaroxaban 20 Mg Tab PO HS VIVIANA Sodium Chloride 12 ml 08/22/20 21:00 Sodium Chloride 0.9% Flush 10 Ml Syringe IV Q12HR [facility] Intake and Output 08/22/20 08/22/20 08/22/20 06:59 14:59 22:59 Intake Total 1736 0 Output Total 950 Balance 1736 -950 Intake: IV 1736 0 Output: Urine 950 Other: Weight 106.6 kg Patient Weight 08/23/20 06:59 Weight 106.6 kg
--- NOTE | 2020-08-22 16:44 | P.PRLE ---
RE: Chau Howard Dear Yosvany Patient has been experiencing recurrent episodes of atrial tachycardia which appear to be atrial flutter. He is unable to take beta blockers because Sick S inus Syndrome and takes it only on a when necessary basis. These episodes make him short of breath He underwent a diagnostic EP study which revealed easily inducible atrial flutter, typical and he underwent successful ablation for this In addition I mapped the left atrium. There was a recovery of signals in the antrum/septum outside the right superior pulmonary vein and linear ablation was performed The roof line and all of the pulmonary veins were completely isolated He continues to have episodes of atrial fibrillation but this is fairly difficult to induce now on Isuprel He will continue dofetilide but will stop taking metoprolol since he has symptomatic sick sinus syndrome He will continue Xarelto lifelong Thank you for entrusting me with the care of the patient Warm regards Sincerely Tyler Fagan
[2020-08-22] MEDS ORDERED: ACETAMINOPHEN IV (For NPO) 1,000 MG in EMPTY BAG 1 BAG IVPB ONE (17:30)
--- NOTE | 2020-08-22 18:15 | CE ---
CARDIAC ELECTROPHYSIOLOGY REPORT Chau Howard is a 64-year-old male patient who has persistent atrial fibrillation. He has undergone antral isolation of the pulmonary veins in the past, linear ablation along the roof and atrial flutter ablation many years back. He is on dofetilide for residual atrial fibrillation. He has been experiencing episodes of atrial tachycardia suggestive of atrial flutter and is quite symptomatic. He is brought in for a diagnostic EP study and radiofrequency ablation. Patient was brought to the EP lab in a fasting state. Written informed consent was obtained prior to the procedure. The right and left groins were prepped and draped as per protocol. Venous sheaths were placed in the right and left femoral veins, and via these diagnostic catheters were placed in the high right atrium, His bundle and coronary sinus. Sinus cycle length 1003 milliseconds, IA interval 149 milliseconds, QRS 97 milliseconds, QT 468 milliseconds. AH interval 48 milliseconds, HV interval 50 milliseconds. Sinus node recovery time at paced cycle length of 600 milliseconds was 1655 milliseconds. There were no delta waves, no slow pathway conduction. AV node Wenckebach block 420 milliseconds. With burst stimulation in the high right atrium at 320 milliseconds, atrial tachycardia was induced at a cycle length of 335 milliseconds. This was consistent with typical atrial flutter based on the ECG and the coronary sinus activation pattern, which was concentric. Isuprel was then started and this tachycardia degenerated into multiple different atrial tachycardias and atrial fibrillation on Isuprel. Isuprel was stopped and the patient went back into sinus rhythm subsequently at the time of transseptal puncture. A transseptal intracardiac echo was performed and the interatrial septum was identified. The fossa ovalis was very thick and electrocautery had to be used to puncture and cross the interatrial septum. RA pressure was 22/9/14 milliseconds and LA pressure 25/3/14 milliseconds. Transseptal catheterization was successfully performed, and this resulted in termination of the atrial fibrillation. Three-dimensional electroanatomic mapping was performed. The left superior, left inferior and the right inferior pulmonary veins were completely isolated at the antral level. The right superior pulmonary vein was isolated at an antral level only posteriorly, but anteriorly isolation was seen only at an ostial level with recovery of conduction around the antrum and the septum between the transseptal puncture and the os of the right superior pulmonary vein. The roof line was completely isolated. RF ablation was performed along the septum and in sinus rhythm and the segment of the posterior septum between the pulmonary veins and the transseptal puncture site was completely isolated. Following that, burst stimulation was performed and atrial tachycardia consistent with atrial flutter was induced. However, with catheter manipulation this resulted in degeneration to atrial fibrillation. Mapping was performed in the anterior wall and RF ablation was applied along the anterior wall which resulted in some slowing but did not result in termination. We did not see any evidence for mitral reentry. The roof line that had been made previously was completely intact without any slow conduction through it. This tachycardia then organized into atrial flutter once again. This atrial fibrillation was organized to atrial flutter. Three-dimensional electroanatomic mapping was performed. The cavotricuspid isthmus was identified. RF ablation was performed and in the mid isthmus there was termination of atrial flutter. Prior to that, entrainment mapping had been performed. The flutter line was then completed anatomically and complete bidirectional block was proven with differential pacing. Isthmus conduction time of greater than 220 milliseconds. All catheters were then removed and patient was transferred back to telemetry. Heparin was discontinued and hemostasis was assured. RESULT: Diagnostic EP study revealin. Septal atrial tachycardias of differing morphologies with a significant reduction in atrial fibrillation after left atrial ablation was performed. 2. Typical atrial flutter ablation. PLAN: Continue dofetilide. Stop metoprolol. Continue Xarelto. MMODL / IJN: [id number] /
[2020-08-22] MEDS: SODIUM CHLORIDE 0.9% 1,000 ML IV SCH (18:56)
[2020-08-22] MEDS: DOFETILIDE 125 MCG CAP PO SCH (19:00)
[2020-08-22] MEDS: CEPHALEXIN 250 MG CAP PO SCH (19:00)
[2020-08-22 20:31] VITALS: PULSE 61
[2020-08-22] MEDS: lisinopriL 10 MG TAB PO SCH (20:38)
[2020-08-22] MEDS ORDERED: ATORVASTATIN 20 MG TAB PO SCH (21:00)
[2020-08-22] MEDS ORDERED: RIVAROXABAN 20 MG TAB PO SCH (21:00)
[2020-08-22] MEDS ORDERED: FAMOTIDINE 20 MG TAB PO SCH (21:00)
[2020-08-22] MEDS ORDERED: MAGNESIUM OXIDE 400 MG TAB PO SCH (21:00)
[2020-08-22] MEDS ORDERED: EZETIMIBE 10 MG TAB PO SCH (21:00)
[2020-08-23] MEDS: CEPHALEXIN 250 MG CAP PO SCH ×3 (00:03→12:10)
[2020-08-23 01:52] VITALS: TEMP 98.5
[2020-08-23] MEDS: SODIUM CHLORIDE 0.9% 1,000 ML IV SCH (05:43)
[2020-08-23] MEDS: DOFETILIDE 125 MCG CAP PO SCH (06:04)
[2020-08-23 07:49] VITALS: BP 128/72; RESP 14
--- NOTE | 2020-08-23 07:52 | P.DS ---
Providers Attending physician: Tyler Fagan Primary care physician: [facility] Course: Patient is doing well. No chest discomfort dizziness lightheadedness or palpitations Groins of healed well. No tenderness no hematoma He is sitting comfortably in a chair No JVD Lungs are clear no rhonchi no crackles Normal heart sounds normal S1 normal S2 no murmurs or gallops. Abdomen is soft Extremities warm Impression History of persistent atrial fibrillation on dofetilide Sick sinus syndrome Breakthrough episodes of atrial tachycardia/typical atrial flutter Successful ablation for typical atrial flutter Linear ablation along the septum outside the antrum of the right superior pulmonary vein and the shaq on the right side All of the pulmonary veins remained completely isolated from prior ablations Roofline made previously was intact Plan Continue dofetilide continue xarelto continue current medications Stop metoprolol Watch for symptomatic bradycardia despite stopping metoprolol Plan - Discharge Summary Discharge Rx Participant: No New Discharge Prescriptions: Continue RX: HYDROcodone/APAP 7.5-325MG [[place] 7.5-325] 1 - 2 tab PO TID PRN PRN Reason: Pain RX: Rivaroxaban [Xarelto] 20 mg PO HS RX: Ezetimibe/Simvastatin [Vytorin 10-40 mg Tablet] 1 tab PO HS RX: Famotidine [Pepcid] 20 mg PO HS RX: Furosemide [Lasix] 20 mg PO QAM RX: Celecoxib [CeleBREX] 200 mg PO BID RX: Hypromellose [Artificial Tears] 1 drop BOTH EYES DAILY PRN PRN Reason: Dry Eye(S) RX: Magnesium Chloride [Slow-Mag] 64 mg PO HS RX: lisinopriL [Zestril] 10 mg PO BID RX: Vit A/Vit C/Vit E/Zinc/Copper [ICAPS SOFTGEL] 1 cap PO BID RX: Dofetilide [Tikosyn] 125 mcg PO BID RX: cefaDROXiL [Duricef] 500 mg PO BID RX: Metoprolol Succinate [Toprol XL] 25 mg PO BID PRN PRN Reason: PALPATIONS OVER 20 MINUTES RX: Acetaminophen [Tylenol Extra Strength] 500 mg PO Q6H PRN PRN Reason: Pain RX: Psyllium Husk (with Sugar) [Metamucil Powder] 1 dose PO BID PRN PRN Reason: Constipation Discharge Medication List RX: Celecoxib [CeleBREX] 200 mg PO BID 01/24/15 [History] RX: Ezetimibe/Simvastatin [Vytorin 10-40 mg Tablet] 1 tab PO HS 01/24/15 [History] RX: Famotidine [Pepcid] 20 mg PO HS 01/24/15 [History] RX: Furosemide [Lasix] 20 mg PO QAM 01/24/15 [History] RX: HYDROcodone/APAP 7.5-325MG [[place] 7.5-325] 1 - 2 tab PO TID PRN 01/24/15 [History] RX: Rivaroxaban [Xarelto] 20 mg PO HS 01/24/15 [History] RX: Hypromellose [Artificial Tears] 1 drop BOTH EYES DAILY PRN 03/21/15 [History] RX: Magnesium Chloride [Slow-Mag] 64 mg PO HS 01/09/16 [History] RX: Vit A/Vit C/Vit E/Zinc/Copper [ICAPS SOFTGEL] 1 cap PO BID 03/31/19 [History] RX: lisinopriL [Zestril] 10 mg PO BID 03/31/19 [History] RX: Dofetilide [Tikosyn] 125 mcg PO BID 05/13/19 [History] RX: Acetaminophen [Tylenol Extra Strength] 500 mg PO Q6H PRN 08/18/20 [History] RX: Metoprolol Succinate [Toprol XL] 25 mg PO BID PRN 08/18/20 [History] RX: Psyllium Husk (with Sugar) [Metamucil Powder] 1 dose PO BID PRN 08/18/20 [History] RX: cefaDROXiL [Duricef] 500 mg PO BID 08/18/20 [History] Follow up Appointment(s)/Referral(s): Tyler Fagan MD [STAFF PHYSICIAN] - 1 Week Activity/Diet/Wound Care/Special Instructions: Post EP study - Ablation instructions 1. Keep access sites dry for 2 days. 2. No heavy lifting or straining for 2 days. 3. Avoid bending the hips repeatedly for 2 days. 4. You may go up and down stairs slowly Call if the following is noted 1. Bleeding, increasing swelling or pain at the access sites. 2. Increasing chest discomfort, especially upon taking a deep breath. 3. Increasing shortness of breath, at rest or with exertion. 4. Undue cough / phlegm 5. Difficulty or pain while swallowing. 6. Pain or change in color in the extremities. 7. Fever, chills, rigors. 8. Increasing headache or neurologic symptoms. 9. Dizziness, fainting, palpitations Discharge Disposition: HOME SELF-CARE
[2020-08-23] MEDS: lisinopriL 10 MG TAB PO SCH (08:22)
[2020-08-23] MEDS ORDERED: MELOXICAM 7.5 MG TAB PO SCH (09:00)
[2020-08-23] MEDS ORDERED: FUROSEMIDE 20 MG TAB PO SCH (09:00)
== END 2020-08-23 13:50 | disposition home or self-care (01) ==
LOC: CATHEP 10:15 → 3NCARDOBS 17:05 → CATHEP 08-23 13:50
PROVIDERS: ATTEND Internal Medicine Clinical Cardiac Electrophysiology
DX: I48.19 Other persistent atrial fibrillation (principal); I49.5 Sick sinus syndrome; I47.1 Supraventricular tachycardia; I48.3 Typical atrial flutter; I10 Essential (primary) hypertension; E78.5 Hyperlipidemia, unspecified; M19.90 Unspecified osteoarthritis, unspecified site; G47.30 Sleep apnea, unspecified; A49.9 Bacterial infection, unspecified; H91.92 Unspecified hearing loss, left ear; Z98.890 Other specified postprocedural states; Z79.899 Other long term (current) drug therapy; Z79.01 Long term (current) use of anticoagulants; Z79.1 Long term (current) use of non-steroidal anti-inflammatories (NSAID); Z85.46 Personal history of malignant neoplasm of prostate; Z86.73 Personal history of transient ischemic attack (TIA), and cerebral infarction without residual deficits; Z99.89 Dependence on other enabling machines and devices; Z79.2 Long term (current) use of antibiotics; Z87.81 Personal history of (healed) traumatic fracture; Z98.1 Arthrodesis status; Z86.69 Personal history of other diseases of the nervous system and sense organs; Z87.19 Personal history of other diseases of the digestive system; Z90.79 Acquired absence of other genital organ(s); Z98.41 Cataract extraction status, right eye; Z91.89 Other specified personal risk factors, not elsewhere classified; Z84.89 Family history of other specified conditions; Z80.1 Family history of malignant neoplasm of trachea, bronchus and lung; Z82.49 Family history of ischemic heart disease and other diseases of the circulatory system
CPT/HCPCS: 93623; 93662; 93613; 93653; C1894; C1769 ×4; C1730 ×3; C1731; C1759; C1893; C1732; J1940; J0690; J2001; J1644 ×2

== ENCOUNTER → 2020-10-25 | Outpatient (CLI) | payer MEDICARE ==
[2020-10-25 20:26] LABS: African American GFR (CKD) 91.8 (60.0-200.0); Anion Gap 9.7 mmol/L (4.00-12.00); Carbon Dioxide 25.3 mmol/L (21.6-31.8); Magnesium 2.3 mg/dL (1.5-2.4); Non-African American GFR(CKD) 79.2 (60.0-200.0); Potassium 5.5 mmol/L (3.5-5.5)
== END | disposition home or self-care (01) ==
LOC: LABWHC1 09:45
PROVIDERS: ATTEND Nurse Practitioner Adult Health
DX: I10 Essential (primary) hypertension (principal)
CPT/HCPCS: 36415; 80048; 83735

== ENCOUNTER → 2021-02-01 | Outpatient (CLI) | payer MEDICARE ==
[2021-02-01 18:11] LABS: HCT 39.4 % (39.6-50.0); HGB 12.9 g/dL (13.0-17.0); MCHC 32.7 g/dL (32.0-37.0); MCV 91.6 fL (80.0-97.0); Mean Platelet Volume 10.4 fL (9.5-12.2); Platelet Count 189 X 10*3/uL (140-440); WBC 4.13 X 10*3/uL (4.50-10.00)
[2021-02-01 20:25] LABS: Erythrocyte Sedimentation Rate 10 mm/Hr (0-20)
[2021-02-02 02:23] LABS: ALT 30 U/L (10-49); AST 23 U/L (14-35); African American GFR (CKD) 104.2 (60.0-200.0); Albumin/Globulin Ratio 2.35 (1.60-3.17); Alkaline Phosphatase 57 U/L (41-126); BUN/Creat Ratio 21.11 Ratio (12.00-20.00); C Reactive Protein <0.4 mg/dL (0.0-0.8); Calcium 9.7 mg/dL (8.7-10.3); Carbon Dioxide 22.9 mmol/L (21.6-31.8); Chloride 108 mmol/L (96-109); Chol/HDL Ratio 3.22; Cholesterol 119 mg/dL (0-200); Glucose 157 mg/dL (70-110); LDL Cholesterol,Calculated 59.2 mg/dL (0.0-131.0); Non-African American GFR(CKD) 89.9 (60.0-200.0); Potassium 4.8 mmol/L (3.5-5.5); Prostate Specific Antigen <0.1 ng/mL (0.0-4.5); Sodium 142 mmol/L (135-145); Total Bilirubin 0.6 mg/dL (0.3-1.2); Total Protein 6.7 g/dL (6.2-8.2)
== END | disposition home or self-care (01) ==
LOC: LABWHC1 09:08
PROVIDERS: ATTEND Internal Medicine Infectious Disease
DX: Z00.01 Encounter for general adult medical examination with abnormal findings (principal); T84.51XA Infection and inflammatory reaction due to internal right hip prosthesis, initial encounter; N40.1 Benign prostatic hyperplasia with lower urinary tract symptoms; E66.3 Overweight; R53.83 Other fatigue
CPT/HCPCS: 36415; 80053; 80061; 84153; 85027; 85652; 86140

== ENCOUNTER → 2021-03-06 | Outpatient (CLI) | payer MEDICARE | END | disposition home or self-care (01) | LOC: LABWHC1 11:57 | PROVIDERS: ATTEND Nurse Practitioner Adult Health | DX: Z51.81 Encounter for therapeutic drug level monitoring (principal); I10 Essential (primary) hypertension | CPT/HCPCS: 36415; 83735 ==

== ENCOUNTER → 2021-03-06 | Outpatient (CLI) | payer MEDICARE ==
--- NOTE | 2021-03-06 12:27 | XR ---
EXAMINATION TYPE: XR chest 2V DATE OF EXAM: 03/06/2021 COMPARISON: 03/20/2019 HISTORY: 65-year-old male Z01.818, presurgical evaluation TECHNIQUE: Frontal and lateral views FINDINGS: Heart is borderline in size. Aorta within normal limits. There is some hilar vascular prominence but without consolidation or pleural effusion. ACDF hardware. IMPRESSION: Borderline cardiomegaly and perihilar vascular prominence. Correlate to exclude mild pulmonary vascul ar congestion.
[2021-03-06 14:00] LABS: Appearance,Urine Clear (Clear); Bilirubin,Urine Negative (Negative); Blood,Urine Negative (Negative); Color,Urine Yellow; Glucose,Urine (UA) Negative (Negative); Ketones,Urine Negative (Negative); Leukocyte Esterase,Urine Negative (Negative); Nitrite,Urine Negative (Negative); PH, Urine 5.5 (5.0-8.0); Protein,Urine Negative (Negative); Specific Gravity,Urine 1.018 (1.001-1.035); Urobilinogen,Urine <2.0 mg/dL (<2.0)
[2021-03-06 14:28] LABS: African American GFR (CKD) >90 (>60 ml/min/1.73 sqM); Anion Gap 10 mmol/L; Blood Urea Nitrogen 16 mg/dL (9-20); Calcium 9.5 mg/dL (8.4-10.2); Carbon Dioxide 26 mmol/L (22-30); Chloride 104 mmol/L (98-107); Glucose 82 mg/dL (74-99); Non-African American GFR(CKD) >90 (>60 ml/min/1.73 sqM); Potassium 4.6 mmol/L (3.5-5.1); Sodium 140 mmol/L (137-145)
[2021-03-06 14:39] LABS: INR 1.1 (<1.2); Partial Thromboplastin Time 26.2 sec (22.0-30.0); Prothrombin Time 11.2 sec (9.0-12.0)
[2021-03-06 14:43] LABS: Basophils % (A) 1 %; Eosinophils # (A) 0.2 k/uL (0-0.7); Eosinophils % (A) 4 %; HCT 41.5 % (39.0-53.0); HGB 13.9 gm/dL (13.0-17.5); Lymphocytes # (A) 1.4 k/uL (1.0-4.8); Lymphocytes % (A) 35 %; MCH 29.9 pg (25.0-35.0); MCHC 33.6 g/dL (31.0-37.0); Mean Platelet Volume 7.2; Monocytes # (A) 0.4 k/uL (0-1.0); Monocytes % (A) 11 %; Neutrophils # (A) 1.8 k/uL (1.3-7.7); Neutrophils % (A) 46 %; Platelet Count 201 k/uL (150-450); RBC 4.66 m/uL (4.30-5.90); RDW 12.7 % (11.5-15.5); WBC 3.9 k/uL (3.8-10.6)
== END | disposition home or self-care (01) ==
LOC: LABPAT 11:49
PROVIDERS: ATTEND Orthopaedic Surgery Orthopaedic Surgery of the Spine
DX: Z01.818 Encounter for other preprocedural examination (principal); M48.00 Spinal stenosis, site unspecified
CPT/HCPCS: 36415; 71046; 80048; 81003; 85025; 85610; 85730; 87070

== ENCOUNTER 2021-03-15 06:13 | Inpatient (IN) | payer MEDICARE ==
[2021-03-10 08:23] VITALS: BMI 33.0
[~2021-03-15 06:13] MED LIST changes: -ACETAMINOPHEN TAB 500 MG TAB PO ONE; -DEXAMETHASONE SOD PHOSPHATE 10 MG/ML 1 ML VIAL IV ONE; +DEXAMETHASONE SOD PHOSPHATE 4 MG/ML 1 ML VIAL IV ONE; -LACTATED RINGERS 1,000 ML IV SCH; +LIDOCAINE 1% (10MG/ML) FOR IV START INTRADERMA PRN; -LIDOCAINE 1% 20 ML VIAL (10MG/ML) FOR IV START INTRADERMA PRN; -MELOXICAM 7.5 MG TAB PO ONE; -MIDAZOLAM 2 MG/2 ML VIAL IV PRN; -ROPIVACAINE 246.25 MG, EPINEPHrine 0.5 MG, KETOROLAC 30 MG, WATER FOR INJECTION,STERILE... MISCELLANE ONE; -SCOPOLAMINE 1.5MG/72HR PATCH TRANSDERM ONE; -TRANEXAMIC ACID 1,000 MG in SODIUM CHLORIDE 0.9% 100 ML IVPB ONE; +ceFAZolin 1,000 MG in SODIUM CHLORIDE 0.9% IRRIGATIO 1,000 ML IRRIGATION PRN; -ceFAZolin IN SWFI 2 GM/20 ML SYRINGE IVP ONE
[2021-03-15] MEDS ORDERED: LACTATED RINGERS 1,000 ML IV ONE ×3 (06:39→13:07)
[2021-03-15] MEDS ORDERED: LIDOCAINE 1% INJ 10MG/ML (20 ML MDV) ONE (07:19)
[2021-03-15] MEDS ORDERED: SODIUM CHLORIDE 0.9% IRRIG 1,000 ML BTL IRRIGATION ONE (07:19)
[2021-03-15] MEDS ORDERED: HYDROmorphone (PF) 1 MG/ML ONE (07:19)
[2021-03-15] MEDS ORDERED: fentaNYL (PF) 50 MCG/ML 2 ML AMP ONE (07:19)
[2021-03-15] MEDS ORDERED: SUCCINYLCHOLINE CHLORIDE VIAL 200 MG/10 ML VIAL IV ONE (07:19)
[2021-03-15] MEDS ORDERED: PROPOFOL 10 MG/ML 20 ML VIAL IV ONE (07:19)
[2021-03-15] MEDS ORDERED: HEPARIN SODIUM,PORCINE 10,000 UNIT/ML 1 ML VIAL ONE (07:19)
[2021-03-15] MEDS ORDERED: MIDAZOLAM 2 MG/2 ML VIAL ONE (07:19)
[2021-03-15] MEDS ORDERED: ROCURONIUM 10 MG/ML (5 ML VIAL) IV ONE (07:19)
[2021-03-15] MEDS ORDERED: LIDOCAINE 0.5%-EPI 1:200,000 50 ML VIAL SQ ONE (07:30)
[2021-03-15] MEDS ORDERED: GELATIN SPONGE,ABSORB (LARGE) 1 EACH SPONGE TOPICAL ONE (07:30)
[2021-03-15] MEDS ORDERED: THROMBIN (BOVINE) 5,000 UNIT VIAL TOPICAL ONE (07:30)
[2021-03-15] MEDS ORDERED: MAGNESIUM HYDROXIDE 2,400 MG/10 ML CUP PO PRN (13:25)
[2021-03-15] MEDS ORDERED: HYDROmorphone 0.5 MG/0.5 ML SYRINGE IVP PRN (13:25)
[2021-03-15] MEDS ORDERED: SENNOSIDES-DOCUSATE SODIUM 1 EACH TAB PO PRN (13:25)
[2021-03-15] MEDS ORDERED: HYDROmorphone 1 MG/ML 1 ML SYRINGE IVP PRN (13:25)
[2021-03-15] MEDS ORDERED: BENZOCAINE/MENTHOL LOZENG 1 EACH LOZENGE MUCOUS MEM PRN (13:25)
[2021-03-15] MEDS ORDERED: HYDROcodone/APAP 5-325MG 1 EACH TAB PO PRN (13:25)
[2021-03-15] MEDS ORDERED: ARTIFICIAL TEARS-HYPROMELLOSE DROPS 15 ML BTL BOTH EYES PRN (13:28)
[2021-03-15] MEDS ORDERED: PSYLLIUM HUSK 100% 6 GM PACKET PO PRN (13:28)
[2021-03-15] MEDS ORDERED: HYDROcodone/APAP 7.5-325MG 1 EACH TAB PO PRN (13:28)
[2021-03-15] MEDS: HYDROmorphone 0.5 MG/0.5 ML SYRINGE IVP PRN ×2 (13:38→13:52)
--- NOTE | 2021-03-15 13:41 | P.OP ---
Date of Procedure: 03/15/21 Preoperative Diagnosis: Severe spinal stenosis L2-3 L3 4, adjacent level degeneration L2-3 L3 4, history of prior fusion L4 5 L5-S1, spondylolisthesis L3 4, bilateral lower extremity radiculopathy, or extremity weakness, degenerative disc disease Postoperative Diagnosis: Same, plus findings of solid fusion L4 5 L5-S1 Anesthesia: GETA Pathology: none sent Condition: stable Disposition: PACU Description of Procedure: BRIEF OPERATIVE NOTE Preoperative Diagnosis:Severe spinal stenosis L2-3 L3 4, adjacent level degeneration L2-3 L3 4, history of prior fusion L4 5 L5-S1, spondylolisthesis L3 4, bilateral lower extremity radiculopathy, or extremity weakness, degenerative disc disease Postoperative Diagnosis:Severe spinal stenosis L2-3 L3 4, adjacent level degeneration L2-3 L3 4, history of prior fusion L4 5 L5-S1, spondylolisthesis L3 4, bilateral lower extremity radiculopathy, or extremity weakness, degenerative disc disease, plus findings of solid fusion L4 5 L5-S1 Procedure: Removal of deep hardware at L4 L5 S1 Exploration of fusion L4 5 L5-S1 with findings of solid fusion Laminectomy and decompression with wide bilateral foraminotomies L2-3 L3 4 Posterior lateral decompression and fusion L2-3 and L3 4 with extension of fusion from L4 to S1 Transforaminal lumbar interbody fusion for a 360 fusion L3 4 Discectomy for decompression L3 4 Placement of interbody graft L3 4 Local autogenous bone grafting Intraoperative CT guided navigation for placement of hardware and fusion at L2-3 L3 4 Use of Cell Saver Use of bone graft extenders Use of neuro monitoring Surgeon: Dr. Anthony Cash Applications Specialist: Bharat ROBLEDO who is present throughout the entire the case persistence during positioning, dissection, exposure, visualization, and all crucial elements of the case as well as closure. Anesthesia: General anesthesia americo Dr. Peterson Estimated blood loss: Approximate 1350 mL with 578 given back through Cell Saver Complications: None apparent Components implanted: We removed prior [employer] Solera screws and rods and cross-link which was all found to be in total and placed new K2M Acme pedicle screws with 6 screws measuring 5.5 and 6.5 mm and 7.5 mm in diameter and 2 rods with one Gallina interbody 9 mm cage Disposition: To recovery room in good stable condition. OPERATIVE INDICATIONS The patient has had long-standing issues in their lower back and lower extremities. Many years ago he had gone through decompression and fusion at L4 5 and L5-S1. He initially done very well with that procedure and was happy with his result. He didn't realize solution of his back and lower extremity symptoms. However over the past year has been having worsening symptoms in his lower extremities and across his lower back. His found have evidence of severe stenosis at L2-3 and L3 4 with adjacent level degeneration spinal stenosis which correlated well with his low back and lower extremity symptoms. His prior fusion appeared to be solid at L4 5 and L5-S1 but he had loosening of the screws at L4. The patient has been through conservative treatment. Despite aggressive conservative treatment he was not having any prolonged benefit. We discussed various treatment options including surgery, and the patient wishes to proceed with surgery We discussed the risk, patient's alternatives and benefits of surgery including but not limited to, risk of bleeding risk of infection, risk of need for further surgery, risk of decreased, loss of motion, muscle function, malunion nonunion, hardware failure, nerve damage, paralysis, heart attack, blindness and . OPERATIVE SUMMARY After discussing all the risks, patient alternatives and benefits at length, the patient elected to proceed with surgical intervention, signed informed consent, and presented for their procedure. The patient was seen and examined in the preoperative holding area and the surgical site was marked. The patient was given antibiotics and brought to the operating room. The patient was sedated and intubated by anesthesia in standard fashion. The patient was positioned on to the operating room table in a prone position on the appropriate frame which was well-padded and well molded. We were careful to pad any bony prominences and pressure points. We were careful to maintain the patient's cervical spine and good neutral alignment and position throughout. The patient was prepped and draped in a normal standard fashion. An appropriate timeout and keystone protocol performed. We were able to proceed with the surgery. The local wound area was infiltrated with local anesthetic. Utilizing the prior incision and extended cephalad I was able to dissect down with incision the midline. Dissection was taken over the tips of spinous processes down to the hardware bilaterally at L4 L5 S1. I was able to identify the hardware in with scar tissue. We were able to positively identify the appropriate levels with the hardware intact. There is evidence of severe and significant bony growth at the posterior lateral gutters. I was able to explore the area. I was able to remove the bone that was over the screw heads and I was able to remove all 6 screws and the rods and cross-link in total. The screws at L4 were found to be loose. The screws at L5 and S1 were solid. I explored the area and I did not notice any motion or appreciate any motion with stress testing at L4 5 or L5-S1. There appeared to be solid fusion L4 5 L5-S1. There was obvious motion L3 4 and L2-3. The patient had all their twitches back. The wound was copiously irrigated and suctioned dry as had been done periodically throughout the case. At this point I dissected out the spinous processes at S1 and I attached a [employer]imetis navigation system guide to bony prominence with the appropriate jig at the S1 spinous process. We will see what appropriate spin for navigation guidance from L2 to S1. This was done appropriately. We will to evaluate the bony landmarks and position. I then attempted to place screws at L2 and L3 bilaterally. Screw holes were established similarly at each level. A sharp awl was used to establish the starting hole. It was palpated and found to have good for espinoza and good base. A monitored Steffee probe was used to establish the pedicle hole. The hole was tapped with the appropriate sized tap. We appeared to have good alignment and good position of the screws at L2-L3 and I used the prior screw holes at L5 bilaterally. None of them had any stimulation at 20 mA. The transverse process or sacral ala was decorticated with a high-speed bur. I was able to use these holes to place the appropriate size screw and good alignment and good position with good bony purchase. When the screws were inserted there were stimulated, and found to have no stimulation at 20 mA. later in the case I had to reposition the screws at L2 and L3 on the left as they were found to be somewhat lateral on imaging. I was able to replace and reposition the screws at L2 and L3 on the left for good alignment good bony purchase and good position. I had to expose place the screws somewhat cephalad in order to gain bony access and good medialized vertebral placement. I was able to get good bony fixation of L2 through L3 screws on the left as well as on the right. The L5 screws had excellent bony fixation. I was able to turn my attention to the decompression decompression was performed with a combination of rongeurs, curettes, Kerrison rongeurs and a ball-tip feeler. The patient was found have severe stenosis at L2-3 and L3 4 with severely thickened ligament of flavum. This was able to be taken down and provided excellent central and bilateral foraminal decompression. All of the bone that was removed was stripped and morcellized for use as autogenous bone graft later in the case. I was able to obtain good central decompression as well as wide bilateral foraminal decompression. There is no evidence of dural tear or leak. Good hemostasis was maintained. The wound was irrigated and suctioned dry. I performed a complete facetectomy at the appropriate level on the most symptomatic side on the left at L3 4. All bone that was removed was saved for local autogenous bone grafting. I was able to gain access to the disc space at the appropriate level/levels. Good hemostasis was maintained. I was able to protect the neurologic structures. A discectomy was performed. This provided further decompression. I was also able to perform complete discectomy and endplate preparation with a combination of pituitary curettes, rasps and scrapers. With the interbody space prepared, I was able to do appropriate sizing. The appropriate size cage was chosen. The wound was irrigated and suctioned dry. The interbody space was packed with local autogenous bone graft and a small portion of bone graft substitute, as was the cage itself. Protecting the soft tissue structures, I was able place the cage in good alignment and good position with good fit and fill. There is no evidence of extrusion of the graft material nor protrusion of the interbody device. The wound was irrigated and suctioned dry. With the hardware intact, at L2-L3 across L4 and into L5 intraoperative x-ray was again taken which showed good alignment and position of the hardware at the appropriate levels. We had good reposition of the screws on imaging at L2-3 on the left and good position at L2-3 and 5 bilaterally. We were then able to measure, contour and place the rods and appropriate hardware bilaterally. I was able to place capcrews, tighten them down, and torque them off appropriately. With this intact I was able to place the local otitis bone graft with additional bone graft enhancer as necessary into the posterior lateral gutters bilaterally. With the bone graft intact, a stable construct, and good decompression at the appropriate levels, we were able to proceed with closure. Good hemostasis was maintained. There is no evidence of dural tear or leak. The fascia was closed for a watertight closure. The subcutaneous tissue was closed over a superficial drain. The subcuticular tissue was closed with absorbable suture. The wound was cleaned and dried and dressed with the appropriate dressing. The drapes were broken down. The patient was gently rolled back onto their hospital bed being careful to maintain their cervical spine and good neutral alignment and position. They were woken up by anesthesia, extubated, and brought to the recovery room in good stable condition. The patient will be admitted to the hospital for appropriate postoperative care, medical management and monitoring. We will continue to follow them closely about the postoperative course.
--- NOTE | 2021-03-15 13:53 | FL ---
EXAMINATION TYPE: FL guidance operating room, XR lumbar spine 2 or 3V DATE OF EXAM: 03/15/2021 CLINICAL HISTORY: Low back pain. TECHNIQUE: Fluoroscopy. Intraoperative 2 views lumbar spine. COMPARISON: None. FINDINGS: Fluoroscopic guidance was provided during lumbar fusion procedure performed by Dr. Anthony. A total of 25 seconds of fluoroscopic time was utilized during the procedure and 2 spot images was a cquired. Images acquired left-sided posterior interpedicular tiago and screws and right-sided interpedicular scr ews with levels of artificial disc material in the spine. IMPRESSION: As Above.
[2021-03-15] MEDS: LACTATED RINGERS 1,000 ML IV SCH ×2 (15:23→15:24)
[2021-03-15] MEDS: SODIUM CHLORIDE 0.9% 1,000 ML IV SCH (15:36)
[2021-03-15] MEDS: HYDROcodone/APAP 5-325MG 1 EACH TAB PO PRN (17:25)
[2021-03-15] MEDS ORDERED: MORPHINE SULFATE 2 MG/ML SYRINGE IVP PRN (17:50)
[2021-03-15] MEDS: METOCLOPRAMIDE 5 MG/ML 2 ML VIAL IVP PRN (18:06)
[2021-03-15] MEDS: MORPHINE SULFATE 4 MG/ML SYRINGE IVP PRN ×2 (18:07→21:33)
[2021-03-15] MEDS: VIT A,C & E-LUTEIN-MINERALS 1 EACH TAB PO SCH (21:29)
[2021-03-15] MEDS: DOFETILIDE 125 MCG CAP PO SCH (21:29)
[2021-03-15] MEDS: EZETIMIBE 10 MG TAB PO SCH (21:29)
[2021-03-15] MEDS: lisinopriL 10 MG TAB PO SCH (21:29)
[2021-03-15] MEDS: ATORVASTATIN 20 MG TAB PO SCH (21:30)
[2021-03-15] MEDS: FAMOTIDINE 20 MG TAB PO SCH (21:30)
[2021-03-15] MEDS: MAGNESIUM OXIDE 400 MG TAB PO SCH (21:30)
[2021-03-15] MEDS: CYCLOBENZAPRINE 10 MG TAB PO PRN (23:59)
[2021-03-16] MEDS: MORPHINE SULFATE 4 MG/ML SYRINGE IVP PRN ×4 (02:18→18:31)
[2021-03-16 08:20] LABS: Basophils # (A) 0.1 k/uL (0-0.2); Basophils % (A) 1 %; Eosinophils # (A) 0.2 k/uL (0-0.7); Eosinophils % (A) 2 %; HCT 36.2 % (39.0-53.0); HGB 12.5 gm/dL (13.0-17.5); Lymphocytes # (A) 0.8 k/uL (1.0-4.8); Lymphocytes % (A) 8 %; MCH 30.9 pg (25.0-35.0); MCHC 34.6 g/dL (31.0-37.0); MCV 89.1 fL (80.0-100.0); Mean Platelet Volume 7.1; Monocytes # (A) 1.2 k/uL (0-1.0); Monocytes % (A) 11 %; Neutrophils # (A) 8.4 k/uL (1.3-7.7); Neutrophils % (A) 77 %; Platelet Count 181 k/uL (150-450); RBC 4.06 m/uL (4.30-5.90); RDW 12.6 % (11.5-15.5); WBC 10.9 k/uL (3.8-10.6)
[2021-03-16] MEDS: METOCLOPRAMIDE 5 MG/ML 2 ML VIAL IVP PRN (08:37)
[2021-03-16] MEDS: HYDROcodone/APAP 5-325MG 1 EACH TAB PO PRN ×3 (08:52→21:24)
[2021-03-16] MEDS: diazePAM 5 MG TAB PO PRN ×3 (08:52→21:24)
--- NOTE | 2021-03-16 09:20 | P.PN ---
Progress Note - Text Progress Note Date: 03/16/21 Postoperative day #1 Patient is seen and examined today at bedside. The patient has some pain around the surgical site as expected. He is sitting up in a chair. He still has is fully intact so far this morning. He was having nausea yesterday evening but that seems to have resolved. He has eaten just small amounts of food this morning. Pain is being controlled with medication. Physical Exam Afebrile with stable vital signs Abdomen is soft nontender. Chest has good excursion deep and space expiration The incision site is clean dry and intact. No erythema there is no purulence. The dressing is essentially clear. There is no significant drainage. Extremities have not had neurologic change from prior to surgery. He has sustained dorsal flexion plantar flexion and EHL intact. Calves and thighs were soft nontender without evidence of DVT. Assessment/Plan Postoperative day #1 status post open decompression and fusion L2 3 L3 4 with extension of his fusion from L4 to S1 progressing appropriately Patient is progressing as expected from the surgery. His nausea from overnight seems to be resolving. Hopefully he will be able to start eating something today. He is having pain over his anterior thighs but is not having neurologic deficit. He has already gotten up to a chair which is encouraging. He will likely have somewhat slow recovery given the scale of his surgery but he will continue to progress his mobilization. He says that he does not normally have significant nausea with pain medication and admitted and some effect from his anesthesia so if he needs some IV medication I think that would be okay to try to control his pain with it. We will continue to increase the patient's mobilization with therapy. We will continue pain control with oral or IV medications. We'll continue to follow patient closely.
[2021-03-16] MEDS: DOFETILIDE 125 MCG CAP PO SCH ×2 (10:18→21:25)
[2021-03-16] MEDS: lisinopriL 10 MG TAB PO SCH ×2 (10:19→21:25)
[2021-03-16] MEDS: FUROSEMIDE 20 MG TAB PO SCH (10:19)
[2021-03-16] MEDS: VIT A,C & E-LUTEIN-MINERALS 1 EACH TAB PO SCH ×2 (10:20→21:25)
[2021-03-16] MEDS: SENNOSIDES-DOCUSATE SODIUM 1 EACH TAB PO SCH (10:20)
--- NOTE | 2021-03-16 10:22 | P.PN ---
Subjective This is a pleasant 65-year-old male past medical history significant for atrial fibrillation s/p multiple ablations, hypertension and dyslipidemia. He follows in the office with Dr. Fagan. He came to the hospital for elective decompression and lumbar fusion with Dr. Anthony. He had seen Dr. Fagan pre- operatively with recommendations for dofetilide holding for surgery. His dofetilide has been resumed and recommendations for NO Zofran or compazine communicated. He is currently complaining of pain and nausea. He is being given reglan. Blood pressure 151/80 heart rate 84 afebrile and maintaining oxygen saturation on room air. CBC for today reviewed, hemoglobin 12.5 and platelets 181. Most recent echocardiogram obtained in the office 2019 revealed preserved LV systolic function with ejection fraction 55%, severely dilated left atrium, severely dilated right atrium, moderate atrial regurgitation and a patent collier ovale. Most recent stress test performed in the office was a Lexiscan stress test that was negative for stress-induced ischemia. GENERAL: Well-appearing, well-nourished and in no acute distress. NECK: Supple without JVD or thyromegaly. LUNGS: Breath sounds clear to auscultation bilaterally. Respiration equal and unlabored. No wheezes, rales or rhonchi. HEART: Regular rate and rhythm without murmurs, rubs or gallops. S1 and S2 heard. EXTREMITIES: Normal range of motion, no edema. No clubbing or cyanosis. Peripheral pulses intact. ASSESSMENT Paroxysmal atrial fibrillation on xarelto, currently in SR Open decompression and fusion L2-4 POD#1 Hypertension Dyslipidemia GERD PLAN Check magnesium level today and in the morning along with BMP. Repeat EKG tomorrow morning. Continue dofetilide and xarelto as previously ordered. We will continue to follow and make recommendations accordingly. Nurse Practitioner note has been reviewed, I agree with a documented findings and plan of care. Patient was seen and examined. Objective - Vital Signs Vital signs: Vital Signs Temp 98.7 F 03/16/21 07:12 Pulse 84 03/16/21 07:12 Resp 17 03/16/21 07:12 BP 151/80 03/16/21 07:12 Pulse Ox 95 03/16/21 07:12 Intake & Output 03/15/21 03/16/21 03/16/21 18:59 06:59 18:59 Intake Total 2831 Output Total 1131 200 Balance 1700 -200 Weight 102.5 kg Intake: IV 2601 Intake, IV Titration 200 Amount Sodium Chloride 0.9% 1, 150 000 ml @ 75 mls/hr IV . [id number] [facility] Rx#:[id number] ceFAZolin 2 gm In Sodium 50 Chloride 0.9% 50 ml @ 100 mls/hr IVPB Q8HR [facility] Rx# :[id number] Oral 30 Output: Drainage 3 Lower Back 3 Urine 550 200 Estimated Blood Loss 578 Other: Voiding Method Indwelling Catheter Indwelling Catheter # Voids 1 - Labs CBC & Chem 7: 03/16/21 07:41 Labs: Abnormal Lab Results - Last 24 Hours (Table) 03/16/21 Range/Units 07:41 WBC 10.9 H (3.8-10.6) k/uL RBC 4.06 L (4.30-5.90) m/uL Hgb 12.5 L (13.0-17.5) gm/dL Hct 36.2 L (39.0-53.0) % Neutrophils # 8.4 H (1.3-7.7) k/uL Lymphocytes # 0.8 L (1.0-4.8) k/uL Monocytes # 1.2 H (0-1.0) k/uL
[2021-03-16] MEDS: SODIUM CHLORIDE 0.9% 1,000 ML IV SCH ×2 (12:16→18:30)
[2021-03-16 12:54] LABS: African American GFR (CKD) >90 (>60 ml/min/1.73 sqM); Anion Gap 8 mmol/L; Blood Urea Nitrogen 21 mg/dL (9-20); Calcium 8.7 mg/dL (8.4-10.2); Carbon Dioxide 26 mmol/L (22-30); Chloride 105 mmol/L (98-107); Glucose 139 mg/dL (74-99); Non-African American GFR(CKD) >90 (>60 ml/min/1.73 sqM); Potassium 4.3 mmol/L (3.5-5.1); Sodium 139 mmol/L (137-145)
[2021-03-16 20:32] LABS: BUN/Creat Ratio 26.25 Ratio (12.00-20.00)
[2021-03-16] MEDS: FAMOTIDINE 20 MG TAB PO SCH (21:24)
[2021-03-16] MEDS: RIVAROXABAN 20 MG TAB PO SCH (21:24)
[2021-03-16] MEDS: ATORVASTATIN 20 MG TAB PO SCH (21:24)
[2021-03-16] MEDS: EZETIMIBE 10 MG TAB PO SCH (21:24)
[2021-03-16] MEDS: MAGNESIUM OXIDE 400 MG TAB PO SCH (21:25)
--- NOTE | 2021-03-16 22:12 | P.CONS ---
History of Present Illness - Reason for Consult Consult date: 03/16/21 Medical management Requesting physician: Elijah Anthony - Chief Complaint Low back surgery - History of Present Illness Consultation: This is a pleasant 65-year-old patient, Dr. Akhtar. Chronic stable medical conditions include atrial fibrillation, GERD, hypertension, BPH, obstructive sleep apnea, hearing loss in the left ear, uses CPAP, prostate cancer. Patient has significant bothersome lower back pain with a diagnosis of spinal stenosis spondylolisthesis bilateral lower extremity radiculopathy going on for some time. Patient had tried conservative management. Not helping. Pain was worse with activity and better with rest. Patient underwent surgical intervention yesterday. Today morning patient sitting up in a chair. Dressing over the operative site. Has a Hemovac in place. Adler catheter. Significant pain is present. Has a nausea earlier which is better. No chest pain or shortness of breath. Patient has been using a walker recently. Review of systems: GEN.: None EYES: None HEENT: None NECK: None RESPIRATORY: None CARDIOVASCULAR: None GASTROINTESTINAL: None GENITOURINARY: Adler catheter MUSCULOSKELETAL: [Low back pain LYMPHATICS: None HEMATOLOGICAL: None PSYCHIATRY: None NEUROLOGICAL: None Past medical history to include: Atrial fibrillation, GERD, hypertension, osteoporosis, prostate cancer, obstructive sleep apnea, severe hearing loss left ear, uses CPAP Social history: Patient is retired. No history of smoking or alcohol. . Physical examination: VITAL SIGNS: 98.7, 84, 17, 151/80, 95% GENERAL: BMI 32.4, sitting up in a chair, awake. EYES: Pupils equal. Conjunctiva normal. HEENT: External appearance of nose and ears normal, oral cavity grossly normal. NECK: JVD not raised; masses not palpable. HEART: First and second heart sounds are normal; no edema. LUNGS: Respiratory rate normal; clear to auscultation. ABDOMEN: Soft, nontender, liver spleen not palpable, no masses palpable. Adler catheter PSYCH: Alert and oriented x3; mood and affect normal. MUSCULAR skeletal: Dressing over the lower lumbar spine. With a Hemovac in place NEUROLOGICAL: Cranial nerves grossly intact; no facial asymmetry, power and sensation grossly intact. LYMPHATICS: No lymph nodes palpable in the axilla and neck INVESTIGATIONS, reviewed in the clinical context: WBC 10.9 hemoglobin 12.5 platelets 181 potassium 4.3 creatinine 0.81 Coronavirus [PCR] not detected Previous labs: 03/06/2021 WBC 3.9 hemoglobin 13.9 platelets 201 potassium 4.6 creatinine 0.84 Coronavirus [PCR] not detected Assessment and plan: -Severe lumbar spinal stenosis, DJD with radiculopathy spondylolisthesis, followed by laminectomy decompression more details in surgical notes. Patient has a Hemovac in place -GERD Pepcid as needed -Essential hypertension Continue Zestril -Paroxysmal atrial fibrillation, currently sinus rhythm Resume xarelto when okay with surgery. Continue Tikosyn -Hypercholesterolemia Resume vytorin -Primary osteoarthritis Pain medications when necessary -Obstructive sleep apnea Uses CPAP -Severe hearing loss in the left ear -Acute postprocedure blood loss anemia, as expected from surgery Add iron supplementation Care was discussed with the patient. Continue current medications. Pain control as per primary team. Thank you Past Medical History Past Medical History: Atrial Fibrillation, Cancer, CVA/TIA, GERD/Reflux, Hypertension, Osteoarthritis (OA), Prostate Disorder, Sleep Apnea/CPAP/BIPAP Additional Past Medical History / Comment(s): MRI SHOWED MINI STROKE several yrs. ago-no residual effects, HAS SEVERE HEARING LOSS LT EAR,USES CPAP,PROSTATE CA-NO RAD OR CHEM. History of Any Multi-Drug Resistant Organisms: None Reported Past Surgical History: Back Surgery, Cardiac Ablation, Hernia Repair, Joint Replacement, Orthopedic Surgery, Prostate Surgery Additional Past Surgical History / Comment(s): CERVICAL FUSION C-3-C-7,RIGHT ELBOW, CARPAL TUNNEL, INGUINAL HERNIA , lumbar fusion, CARDIOVERSION x3, prostatectomy 2007, right hip replaced March 2019 Past Anesthesia/Blood Transfusion Reactions: Postoperative Nausea & Vomiting (PONV) Additional Past Anesthesia/Blood Transfusion Reaction / Comm: PONV x1, slow to wake up x1, SISTER HAS PONV. Smoking Status: Never smoker - Past Family History Father Family Medical History: Cancer Additional Family Medical History / Comment(s): LUNG CANCER Mother Family Medical History: Hypertension Additional Family Medical History / Comment(s): ENLARGED HEART Medications and Allergies Home Medications Medication Instructions Recorded Confirmed Type Celecoxib [CeleBREX] 200 mg PO BID 01/24/15 03/15/21 History Ezetimibe/Simvastatin [Vytorin 1 tab PO HS 01/24/15 03/15/21 History 10-40 mg Tablet] Famotidine [Pepcid] 20 mg PO HS 01/24/15 03/15/21 History Furosemide [Lasix] 20 mg PO QAM 01/24/15 03/15/21 History HYDROcodone/APAP 7.5-325MG [[place] 1 - 2 tab PO TID PRN 01/24/15 03/15/21 History 7.5-325] Rivaroxaban [Xarelto] 20 mg PO HS 01/24/15 03/15/21 History Hypromellose [Artificial Tears] 1 drop BOTH EYES DAILY PRN 03/21/15 03/15/21 History Magnesium Chloride [Slow-Mag] 64 mg PO HS 01/09/16 03/15/21 History lisinopriL [Zestril] 10 mg PO BID 03/31/19 03/15/21 History Dofetilide [Tikosyn] 125 mcg PO BID 05/13/19 03/15/21 History Acetaminophen [Tylenol Extra 500 mg PO Q6H PRN 08/18/20 03/15/21 History Strength] Psyllium Husk (with Sugar) 1 dose PO BID PRN 08/18/20 03/15/21 History [Metamucil Powder] Vit C/E/Zn/Coppr/Lutein/Zeaxan 2 each PO BID 03/10/21 03/15/21 History [Preservision Areds 2 Softgel] Allergies Allergy/AdvReac Type Severity Reaction Status Date / Time amiodarone AdvReac muscle Verified 03/15/21 06:54 tremors flecainide AdvReac bradycardia Verified 03/15/21 06:54 Physical Exam Vitals: Vital Signs Temp Pulse Resp BP Pulse Ox 03/16/21 07:12 98.7 F 84 17 151/80 95 03/16/21 05:24 98.5 F 73 18 147/94 96 03/15/21 23:25 98.7 F 65 16 142/73 96 03/15/21 20:00 97.7 F 63 18 134/77 98 03/15/21 18:16 67 18 154/86 97 03/15/21 17:20 98.0 F 65 18 142/92 98 03/15/21 16:38 73 18 154/76 95 03/15/21 16:10 65 18 143/86 96 03/15/21 15:45 64 18 146/89 97 03/15/21 15:25 66 145/82 94 L 03/15/21 15:15 98.1 F 74 20 146/86 94 L 03/15/21 14:40 64 18 117/79 99 03/15/21 14:25 64 18 141/66 99 03/15/21 14:10 63 16 125/60 97 03/15/21 13:55 62 14 148/67 98 03/15/21 13:41 74 16 122/70 98 03/15/21 13:26 97.2 F L 74 18 121/70 100 Intake and Output 03/15/21 03/16/21 03/16/21 22:59 06:59 14:59 Intake Total 230 Output Total 303 200 Balance -73 -200 Intake: Intake, IV Titration 200 Amount Sodium Chloride 0.9% 1, 150 000 ml @ 75 mls/hr IV . [id number] REPLACED BY [facility] Rx#:[id number] ceFAZolin 2 gm In Sodium 50 Chloride 0.9% 50 ml @ 100 mls/hr IVPB Q8HR REPLACED BY [facility] Rx# :[id number] Oral 30 Output: Drainage 3 Lower Back 3 Urine 300 200 Other: Voiding Method Indwelling Catheter Indwelling Catheter # Voids 1 Results CBC & Chem 7: 03/16/21 07:41 03/16/21 07:41 Labs: Abnormal Lab Results - Last 24 Hours (Table) 03/16/21 Range/Units 07:41 WBC 10.9 H (3.8-10.6) k/uL RBC 4.06 L (4.30-5.90) m/uL Hgb 12.5 L (13.0-17.5) gm/dL Hct 36.2 L (39.0-53.0) % Neutrophils # 8.4 H (1.3-7.7) k/uL Lymphocytes # 0.8 L (1.0-4.8) k/uL Monocytes # 1.2 H (0-1.0) k/uL
[2021-03-17] MEDS: MORPHINE SULFATE 4 MG/ML SYRINGE IVP PRN ×5 (00:48→21:26)
[2021-03-17] MEDS: HYDROcodone/APAP 5-325MG 1 EACH TAB PO PRN ×3 (04:49→20:51)
[2021-03-17] MEDS: CYCLOBENZAPRINE 10 MG TAB PO PRN ×2 (04:49→17:36)
[2021-03-17] MEDS: SODIUM CHLORIDE 0.9% 1,000 ML IV SCH (05:34)
[2021-03-17 07:38] LABS: African American GFR (CKD) >90 (>60 ml/min/1.73 sqM); Anion Gap 7 mmol/L; Blood Urea Nitrogen 19 mg/dL (9-20); Calcium 8.7 mg/dL (8.4-10.2); Carbon Dioxide 28 mmol/L (22-30); Chloride 103 mmol/L (98-107); Glucose 130 mg/dL (74-99); Magnesium 2.2 mg/dL (1.6-2.3); Non-African American GFR(CKD) >90 (>60 ml/min/1.73 sqM); Potassium 4.2 mmol/L (3.5-5.1); Sodium 138 mmol/L (137-145)
--- NOTE | 2021-03-17 08:00 | P.PN ---
Progress Note - Text Progress Note Date: 03/17/21 Postoperative day #2 Patient is seen and examined today at bedside. The patient has some pain around the surgical site but he feels it is improving since yesterday. Pain is being controlled with medication. He is not having any further nausea and is tolerating the morphine adequately. He's got a try to transition to orals today. He is tolerating some diet. He is voiding freely. Physical Exam Afebrile with stable vital signs Abdomen is soft nontender. Chest has good excursion deep and space expiration The incision site is clean dry and intact. No erythema there is no purulence. I pulled out the Hemovac drain and there is no active drainage. The dressing is clear. Extremities have not had neurologic change from prior to surgery. He has sustained dorsal flexion plantar flexion and EHL intact Calves and thighs were soft nontender without evidence of DVT. Assessment/Plan Postoperative day #2 status post decompression and fusion L2 3 L3 4 with extension of fusion from L4 to S1 for his severe spinal stenosis adjacent level degeneration and listhesis Patient is progressing as expected from the surgery. He is making some progress in terms of his diet and his mobility and pain control. We will continue to increase the patient's mobilization with therapy. We will continue pain control with oral or IV medications. He is happy with results results thus far surgical site is healing appropriately. If we're able to convert him over to orals and his bowels are functioning appropriately he may be able to be home Saturday or Saturday. We'll continue to follow patient closely.
[2021-03-17] MEDS: lisinopriL 10 MG TAB PO SCH ×2 (09:40→20:51)
[2021-03-17] MEDS: FERROUS SULFATE 325 MG TAB PO SCH ×2 (09:40→17:10)
[2021-03-17] MEDS: VIT A,C & E-LUTEIN-MINERALS 1 EACH TAB PO SCH ×2 (09:40→20:51)
[2021-03-17] MEDS: FUROSEMIDE 20 MG TAB PO SCH (09:40)
[2021-03-17] MEDS: DOFETILIDE 125 MCG CAP PO SCH ×2 (09:40→20:51)
[2021-03-17] MEDS: SENNOSIDES-DOCUSATE SODIUM 1 EACH TAB PO SCH (09:41)
--- NOTE | 2021-03-17 12:10 | P.PN ---
Subjective This is a pleasant 65-year-old male past medical history significant for atrial fibrillation s/p multiple ablations, hypertension and dyslipidemia. He follows in the office with Dr. Fagan. He came to the hospital for elective decompression and lumbar fusion with Dr. Anthony. He had seen Dr. Fagan pre- operatively with recommendations for dofetilide holding for surgery. His dofetilide has been resumed and recommendations for NO Zofran or compazine communicated. He is currently complaining of pain and nausea. He is being given reglan. Blood pressure 151/80 heart rate 84 afebrile and maintaining oxygen saturation on room air. CBC for today reviewed, hemoglobin 12.5 and platelets 181. Most recent echocardiogram obtained in the office 2019 revealed preserved LV systolic function with ejection fraction 55%, severely dilated left atrium, severely dilated right atrium, moderate atrial regurgitation and a patent collier ovale. Most recent stress test performed in the office was a Lexiscan stress test that was negative for stress-induced ischemia. 03/17/2021 Patient seen and examined sitting up in the recliner in no acute distress. He denies symptoms of chest discomfort, shortness of breath or palpitations. Repeat EKG this morning reveals sinus mechanism with frequent APCs with a QT interval of 440 ms. Laboratory data reviewed, sodium 138, potassium 4.2, creatinine 0.79 and magnesium 2.2. Blood pressure 117/82 heart rate 68 afebrile maintaining oxygen saturation on nasal cannula. GENERAL: Well-appearing, well-nourished and in no acute distress. NECK: Supple without JVD or thyromegaly. LUNGS: Breath sounds clear to auscultation bilaterally. Respiration equal and unlabored. No wheezes, rales or rhonchi. HEART: Regular rate and rhythm without murmurs, rubs or gallops. S1 and S2 heard. EXTREMITIES: Normal range of motion, no edema. No clubbing or cyanosis. Peripheral pulses intact. ASSESSMENT Paroxysmal atrial fibrillation on xarelto, currently in SR Open decompression and fusion L2-4 POD#2 Hypertension Dyslipidemia GERD PLAN Continue dofetilide and Xarelto. Stable from a cardiac perspective, follow up with Dr. Fagan upon discharge. We will follow along as needed. Nurse Practitioner note has been reviewed, I agree with a documented findings and plan of care. Patient was seen and examined. Objective - Vital Signs Vital signs: Vital Signs Temp 97.9 F 03/17/21 07:10 Pulse 60 03/17/21 07:29 Resp 17 03/17/21 07:29 BP 117/82 03/17/21 07:10 Pulse Ox 96 03/17/21 07:10 Intake & Output 03/16/21 03/17/21 03/17/21 18:59 06:59 18:59 Intake Total 1380 900 Output Total 1180 30 Balance 200 870 Intake: Intake, IV Titration 900 900 Amount Sodium Chloride 0.9% 1, 900 900 000 ml @ 75 mls/hr IV . [id number] [facility] Rx#:[id number] Oral 480 Output: Drainage 80 30 Lower Back 80 30 Urine 1100 Uretheral (Adler) 1100 Other: Voiding Method Indwelling Catheter Urinal # Voids 1 - Labs CBC & Chem 7: 03/16/21 07:41 03/17/21 06:06 Labs: Abnormal Lab Results - Last 24 Hours (Table) 03/16/21 03/17/21 Range/Units 07:41 06:06 BUN 21 H (9-20) mg/dL BUN/Creatinine Ratio 26.25 H (12.00-20.00) Ratio Glucose 139 H 130 H (74-99) mg/dL
[2021-03-17] MEDS: diazePAM 5 MG TAB PO PRN ×2 (12:45→20:51)
--- NOTE | 2021-03-17 20:37 | P.PN ---
Progress Note - Text Progress Note Date: 03/17/21 - Chief Complaint Low back surgery Consultation: This is a pleasant 65-year-old patient, Dr. Akhtar. Chronic stable medical conditions include atrial fibrillation, GERD, hypertension, BPH, obstructive sleep apnea, hearing loss in the left ear, uses CPAP, prostate cancer. Patient has significant bothersome lower back pain with a diagnosis of spinal stenosis spondylolisthesis bilateral lower extremity radiculopathy going on for some time. Patient had tried conservative management. Not helping. Pain was worse with activity and better with rest. Patient underwent surgical intervention yesterday. Today: Hemovac removed this morning. Adler catheter discontinued. Patient has made some urine. Lower back pain is better. No bowel movement. Has been out of bed. Review of systems: Was done for constitutional, cardiovascular, GI, pulmonary. relevant finding as above Active Medications Hydrocodone Bitart/Acetaminophen (Hydrocodone/Apap 5-325mg 1 Each Tab) 1 each PO Q6HR PRN PRN Reason: Pain Stop: 04/14/21 13:26 Hydrocodone Bitart/Acetaminophen (Hydrocodone/Apap 5-325mg 1 Each Tab) 2 each PO Q6HR PRN PRN Reason: Pain Stop: 04/14/21 13:26 Last Admin: 03/17/21 12:46 Dose: 2 each Documented by: Artificial Tears (Artificial Tears-Hypromellose Drops 15 Ml Btl) 1 drops BOTH EYES DAILY PRN PRN Reason: Dry Eye(s) Atorvastatin Calcium (Atorvastatin 20 Mg Tab) 20 mg PO DAILY@2100 VIVIANA Last Admin: 03/16/21 21:24 Dose: 20 mg Documented by: Benzocaine/Menthol (Benzocaine/Menthol Lozeng 1 Each Lozenge) 1 each MUCOUS MEM Q4HR PRN PRN Reason: Sore Throat Stop: 04/14/21 13:26 Cyclobenzaprine HCl (Cyclobenzaprine 10 Mg Tab) 10 mg PO TID PRN PRN Reason: Muscle Spasm Stop: 04/14/21 13:26 Last Admin: 03/17/21 17:36 Dose: 10 mg Documented by: Diazepam (Diazepam 5 Mg Tab) 5 mg PO QID PRN PRN Reason: Anxiety Stop: 04/14/21 13:26 Last Admin: 03/17/21 12:45 Dose: 5 mg Documented by: Dofetilide (Dofetilide 125 Mcg Cap) 125 mcg PO BID [facility] Stop: 04/14/21 21:01 Last Admin: 03/17/21 09:40 Dose: 125 mcg Documented by: Ezetimibe (Ezetimibe 10 Mg Tab) 10 mg PO [facility] Stop: 04/14/21 21:01 Last Admin: 03/16/21 21:24 Dose: 10 mg Documented by: Famotidine (Famotidine 20 Mg Tab) 20 mg PO [facility] Stop: 04/14/21 21:01 Last Admin: 03/16/21 21:24 Dose: 20 mg Documented by: Ferrous Sulfate (Ferrous Sulfate 325 Mg Tab) 325 mg PO BID-W/MEALS [facility] Last Admin: 03/17/21 17:10 Dose: 325 mg Documented by: Furosemide ([facility]semide 20 Mg Tab) [facility] Stop: 04/15/21 09:01 Last Admin: 03/17/21 09:40 Dose: 20 mg Documented by: Lidocaine HCl (Lidocaine 1% (10mg/Ml) For Iv Start) 0.1 ml INTRADERMA PER PROTOCOL PRN PRN Reason: IV Start Stop: 04/13/21 09:29 Last Admin: 03/15/21 07:08 Dose: 0.1 ml Documented by: Lisinopril (Lisinopril 10 Mg Tab) 10 mg PO BID [facility] Stop: 04/14/21 21:01 Last Admin: 03/17/21 09:40 Dose: 10 mg Documented by: Magnesium Hydroxide (Magnesium Hydroxide 2,400 Mg/10 Ml Cup) 2,400 mg PO DAILY PRN PRN Reason: Constipation Stop: 04/14/21 13:26 Magnesium Oxide (Magnesium Oxide 400 Mg Tab) 400 mg PO [facility] Stop: 04/14/21 21:01 Last Admin: 03/16/21 21:25 Dose: 400 mg Documented by: Metoclopramide HCl (Metoclopramide 5 Mg/Ml 2 Ml Vial) 10 mg IVP Q6HR PRN PRN Reason: Nausea Last Admin: 03/16/21 08:37 Dose: 10 mg Documented by: Morphine Sulfate (Morphine Sulfate 2 Mg/Ml Syringe) 2 mg IVP Q3HR PRN PRN Reason: Mild to Moderate Pain Morphine Sulfate (Morphine Sulfate 4 Mg/Ml Syringe) 4 mg IVP Q3HR PRN PRN Reason: Moderate to Severe Pain Last Admin: 03/17/21 17:08 Dose: 4 mg Documented by: Multivitamins/Minerals (Vit A,C & S-Shuyyh-Rdkcjgsv 1 Each Tab) 2 each PO BID [facility]IVIANA Stop: 04/14/21 21:01 Last Admin: 03/17/21 09:40 Dose: 2 each Documented by: Psyllium Hydrophilic Mucilloid (Psyllium Husk 100% 6 Gm Packet) 6 gm PO BID PRN PRN Reason: Constipation Rivaroxaban (Rivaroxaban 20 Mg Tab) 20 mg PO HS [facility]IVIANA Stop: 04/15/21 21:01 Last Admin: 03/16/21 21:24 Dose: 20 mg Documented by: Senna/Docusate Sodium (Sennosides-Docusate Sodium 1 Each Tab) 1 each PO DAILY [facility]IANA Stop: 04/15/21 09:01 Last Admin: 03/17/21 09:41 Dose: Not Given Documented by: Senna/Docusate Sodium (Sennosides-Docusate Sodium 1 Each Tab) 2 each PO DAILY PRN PRN Reason: Constipation Stop: 04/14/21 13:26 Last Admin: 03/17/21 08:43 Dose: 2 each Documented by: Past medical history to include: Atrial fibrillation, GERD, hypertension, osteoporosis, prostate cancer, obstructive sleep apnea, severe hearing loss left ear, uses CPAP Social history: Patient is retired. No history of smoking or alcohol. . Physical examination: VITAL SIGNS: 99, 76, 18, 149/78, 94% room air GENERAL: Reclining in bed, awake EYES: Pupils equal. Conjunctiva normal. NECK: JVD not raised; masses not palpable. HEART: First and second heart sounds are normal; no edema. LUNGS: Respiratory rate normal; clear to auscultation. ABDOMEN: Soft, nontender, liver spleen not palpable, no masses palpable. Adler catheter PSYCH: Alert and oriented x3; mood and affect normal. MUSCULAR skeletal: Dressing over the lower lumbar spine. INVESTIGATIONS, reviewed in the clinical context: March 17: Potassium 4.2 creatinine 0.79 WBC 10.9 hemoglobin 12.5 platelets 181 potassium 4.3 creatinine 0.81 Coronavirus [PCR] not detected Previous labs: 03/06/2021 WBC 3.9 hemoglobin 13.9 platelets 201 potassium 4.6 creatinine 0.84 Coronavirus [PCR] not detected Assessment and plan: -Severe lumbar spinal stenosis, DJD with radiculopathy spondylolisthesis, followed by laminectomy decompression more details in surgical notes. Hemovac discontinued -GERD Pepcid as needed -Essential hypertension Continue Zestril -Paroxysmal atrial fibrillation, currently sinus rhythm Xarelto resumed. Continue Tikosyn -Hypercholesterolemia vytorin -Primary osteoarthritis Pain medications when necessary -Obstructive sleep apnea Uses CPAP -Severe hearing loss in the left ear -Acute postprocedure blood loss anemia, as expected from surgery iron supplementation Care was discussed with the patient. Continue current medications. Doing better. Thank you
[2021-03-17] MEDS: EZETIMIBE 10 MG TAB PO SCH (20:50)
[2021-03-17] MEDS: FAMOTIDINE 20 MG TAB PO SCH (20:51)
[2021-03-17] MEDS: ATORVASTATIN 20 MG TAB PO SCH (20:51)
[2021-03-17] MEDS: MAGNESIUM OXIDE 400 MG TAB PO SCH (20:51)
[2021-03-17] MEDS: RIVAROXABAN 20 MG TAB PO SCH (20:51)
[2021-03-18] MEDS: CYCLOBENZAPRINE 10 MG TAB PO PRN (02:23)
[2021-03-18] MEDS: MORPHINE SULFATE 4 MG/ML SYRINGE IVP PRN (02:23)
[2021-03-18 04:16] VITALS: RESP 16
[2021-03-18] MEDS: HYDROcodone/APAP 5-325MG 1 EACH TAB PO PRN ×2 (04:59→11:37)
[2021-03-18] MEDS: diazePAM 5 MG TAB PO PRN (04:59)
[2021-03-18] MEDS: SENNOSIDES-DOCUSATE SODIUM 1 EACH TAB PO SCH (08:50)
[2021-03-18] MEDS: DOFETILIDE 125 MCG CAP PO SCH (08:50)
[2021-03-18] MEDS: FERROUS SULFATE 325 MG TAB PO SCH (08:50)
[2021-03-18] MEDS: VIT A,C & E-LUTEIN-MINERALS 1 EACH TAB PO SCH (08:50)
[2021-03-18] MEDS: lisinopriL 10 MG TAB PO SCH (08:51)
[2021-03-18] MEDS: FUROSEMIDE 20 MG TAB PO SCH (08:51)
--- NOTE | 2021-03-18 10:39 | P.DS ---
Providers Date of admission: 03/15/21 13:25 Expected date of discharge: 03/18/21 Attending physician: Elijah Anthony Consults: 03/15/21 05:53 Consult Physician Routine Consulting Provider: Tyler Fagan Consult Reason/Comments: please consult cardiology post-op-see Dr. Fagan's pre-op clearance Do you want consulting provider notified?: Yes 03/15/21 13:25 Consult Physician Routine Consulting Provider: Benson Copeland Consult Reason/Comments: Medical management Do you want consulting provider notified?: Yes Primary care physician: Carlos Akhtar - Discharge Diagnosis(es) (1) Spinal stenosis Current Visit: Yes Status: Acute Hospital Course: This is a 65-year-old male with a history of severe spinal stenosis and prior lumbar fusion. Patient presented for evaluation as an outpatient due to worsening symptoms in his lower extremities and lower back. After no improvement with conservative treatments and discussion and consideration patient elected to proceed with surgical management. Decompression and fusion L2-L3 L3-4 extension of fusion from L4 to S1 for severe spinal stenosis adjacent level degeneration and listhesis is performed on 03/15/2021. Labs and vital signs are stable on day of discharge. Patient states that he has been successful with mobilization. Patient states that he has been able to have a bowel movement postoperatively. Patient has been followed by internal medicine and cardiology during this admission. On exam dressing is clean, dry and intact. There is minimal swelling. No erythema. No drainage from the incision. Patient has good range of motion of bilateral lower extremities. Sensation intact bilaterally. Calves are soft and nontender to palpation. Neurovascular status and circulatory status are intact. Patient is discharged home in good condition. Please see med rec for an accura te list of home medications. Plan - Discharge Summary Discharge Rx Participant: Yes New Discharge Prescriptions: New Cyclobenzaprine [Flexeril] 10 mg PO TID PRN #90 tab PRN Reason: Spasms HYDROcodone/APAP 10-325MG [[place] 10-325] 1 tab PO Q4HR PRN #42 tab PRN Reason: Pain Diazepam [Valium] 5 mg PO Q8H PRN #21 tab PRN Reason: Spasms No Action HYDROcodone/APAP 7.5-325MG [[place] 7.5-325] 1 - 2 tab PO TID PRN PRN Reason: Pain Rivaroxaban [Xarelto] 20 mg PO HS Ezetimibe/Simvastatin [Vytorin 10-40 mg Tablet] 1 tab PO HS Famotidine [Pepcid] 20 mg PO HS Furosemide [Lasix] 20 mg PO QAM Celecoxib [CeleBREX] 200 mg PO BID Hypromellose [Artificial Tears] 1 drop BOTH EYES DAILY PRN PRN Reason: Dry Eye(S) Magnesium Chloride [Slow-Mag] 64 mg PO HS lisinopriL [Zestril] 10 mg PO BID Dofetilide [Tikosyn] 125 mcg PO BID Acetaminophen [Tylenol Extra Strength] 500 mg PO Q6H PRN PRN Reason: Pain Psyllium Husk (with Sugar) [Metamucil Powder] 1 dose PO BID PRN PRN Reason: Constipation Vit C/E/Zn/Coppr/Lutein/Zeaxan [Preservision Areds 2 Softgel] 2 each PO BID Discharge Medication List Celecoxib [CeleBREX] 200 mg PO BID 01/24/15 [History] Ezetimibe/Simvastatin [Vytorin 10-40 mg Tablet] 1 tab PO HS 01/24/15 [History] Famotidine [Pepcid] 20 mg PO HS 01/24/15 [History] Furosemide [Lasix] 20 mg PO QAM 01/24/15 [History] HYDROcodone/APAP 7.5-325MG [[place] 7.5-325] 1 - 2 tab PO TID PRN 01/24/15 [History] Rivaroxaban [Xarelto] 20 mg PO HS 01/24/15 [History] Hypromellose [Artificial Tears] 1 drop BOTH EYES DAILY PRN 03/21/15 [History] Magnesium Chloride [Slow-Mag] 64 mg PO HS 01/09/16 [History] lisinopriL [Zestril] 10 mg PO BID 03/31/19 [History] Dofetilide [Tikosyn] 125 mcg PO BID 05/13/19 [History] Acetaminophen [Tylenol Extra Strength] 500 mg PO Q6H PRN 08/18/20 [History] Psyllium Husk (with Sugar) [Metamucil Powder] 1 dose PO BID PRN 08/18/20 [History] Vit C/E/Zn/Coppr/Lutein/Zeaxan [Preservision Areds 2 Softgel] 2 each PO BID 03/10/21 [History] Cyclobenzaprine [Flexeril] 10 mg PO TID PRN #90 tab 03/17/21 [Rx] Diazepam [Valium] 5 mg PO Q8H PRN #21 tab 03/17/21 [Rx] HYDROcodone/APAP 10-325MG [[place] 10-325] 1 tab PO Q4HR PRN #42 tab 03/17/21 [Rx] Follow up Appointment(s)/Referral(s): Tyler Fagan MD [STAFF PHYSICIAN] - 1 Week Elijah Anthony DO [Doctor of Osteopathic Medicine] - 2 Weeks Activity/Diet/Wound Care/Special Instructions: Keep site clean. May shower with waterproof Tegaderm intact. Do not soak in a tub. After 72 hours postoperatively, patient May remove dressing and then may shower with area uncovered. Leave Steri-Strips intact and allow them to fray off on their own. May ambulate as tolerated. Avoid heavy or rigorous activity. No repetitive bending twisting or lifting. No overhead work. Discharge Disposition: HOME SELF-CARE
[2021-03-18 12:13] VITALS: BP 140/76; PULSE 43; TEMP 98.2
--- NOTE | 2021-03-18 17:31 | P.PN ---
Progress Note - Text Progress Note Date: 03/18/21 - Chief Complaint Low back surgery Consultation: This is a pleasant 65-year-old patient, Dr. Akhtar. Chronic stable medical conditions include atrial fibrillation, GERD, hypertension, BPH, obstructive sleep apnea, hearing loss in the left ear, uses CPAP, prostate cancer. Patient has significant bothersome lower back pain with a diagnosis of spinal stenosis spondylolisthesis bilateral lower extremity radiculopathy going on for some time. Patient had tried conservative management. Not helping. Pain was worse with activity and better with rest. Patient underwent surgical intervention yesterday. Hemovac and Adler catheter removed. Today: Back pain is better. Oral intake improved. Feeling better. Walking better. Review of systems: Was done for constitutional, cardiovascular, GI, pulmonary. relevant finding as above Current medications reviewed in today's records Past medical history to include: Atrial fibrillation, GERD, hypertension, osteoporosis, prostate cancer, obstructive sleep apnea, severe hearing loss left ear, uses CPAP Social history: Patient is retired. No history of smoking or alcohol. . Physical examination: VITAL SIGNS: 98.9, 16 6, 16, 1 52 x 73, 97% room air GENERAL: Sitting up, comfortable LUNGS: Respiratory rate normal; clear to auscultation. ABDOMEN: Soft, nontender, liver spleen not palpable, no masses palpable. Adler catheter PSYCH: Alert and oriented x3; mood and affect normal. Next of the exam per orthopedics INVESTIGATIONS, reviewed in the clinical context: March 17: Potassium 4.2 creatinine 0.79 WBC 10.9 hemoglobin 12.5 platelets 181 potassium 4.3 creatinine 0.81 Coronavirus [PCR] not detected Previous labs: 03/06/2021 WBC 3.9 hemoglobin 13.9 platelets 201 potassium 4.6 creatinine 0.84 Coronavirus [PCR] not detected Assessment and plan: -Severe lumbar spinal stenosis, DJD with radiculopathy spondylolisthesis, followed by laminectomy decompression more details in surgical notes. Hemovac discontinued -GERD Pepcid as needed -Essential hypertension Continue Zestril -Paroxysmal atrial fibrillation, currently sinus rhythm Xarelto resumed. Continue Tikosyn -Hypercholesterolemia vytorin -Primary osteoarthritis Pain medications when necessary -Obstructive sleep apnea Uses CPAP -Severe hearing loss in the left ear -Acute postprocedure blood loss anemia, as expected from surgery iron supplementation Doing better. If discharged to follow-up with PCP Thank you
== END 2021-03-18 13:45 | disposition home or self-care (01) | DRG 460 ==
LOC: OR 06:13 → 5NMEDONC 13:25 → OR 13:25 → 5NMEDONC 14:02
PROVIDERS: ADMIT Orthopaedic Surgery Orthopaedic Surgery of the Spine; ATTEND Orthopaedic Surgery Orthopaedic Surgery of the Spine
PROC: 01NB0ZZ Release Lumbar Nerve, Open Approach (ICD-10-PCS; 2021-03-15)
PROC: 0SP004Z Removal of Internal Fixation Device from Lumbar Vertebral Joint, Open Approach (ICD-10-PCS; 2021-03-15)
PROC: 0SP304Z Removal of Internal Fixation Device from Lumbosacral Joint, Open Approach (ICD-10-PCS; 2021-03-15)
PROC: 0SB20ZZ Excision of Lumbar Vertebral Disc, Open Approach (ICD-10-PCS; 2021-03-15)
PROC: 0SG30AJ Fusion of Lumbosacral Joint with Interbody Fusion Device, Posterior Approach, Anterior Column, Open Approach (ICD-10-PCS; principal; 2021-03-15 07:30)
DX: M48.062 Spinal stenosis, lumbar region with neurogenic claudication (principal); D62 Acute posthemorrhagic anemia; T84.038A Mechanical loosening of other internal prosthetic joint, initial encounter; M51.16 Intervertebral disc disorders with radiculopathy, lumbar region; M43.16 Spondylolisthesis, lumbar region; N40.0 Benign prostatic hyperplasia without lower urinary tract symptoms; I48.0 Paroxysmal atrial fibrillation; K21.9 Gastro-esophageal reflux disease without esophagitis; I10 Essential (primary) hypertension; M19.91 Primary osteoarthritis, unspecified site; Z79.1 Long term (current) use of non-steroidal anti-inflammatories (NSAID); Z86.73 Personal history of transient ischemic attack (TIA), and cerebral infarction without residual deficits; Z79.01 Long term (current) use of anticoagulants; G47.33 Obstructive sleep apnea (adult) (pediatric); Z98.1 Arthrodesis status; Z20.822 Contact with and (suspected) exposure to COVID-19; Y83.8 Other surgical procedures as the cause of abnormal reaction of the patient, or of later complication, without mention of misadventure at the time of the procedure; H91.92 Unspecified hearing loss, left ear; Z80.1 Family history of malignant neoplasm of trachea, bronchus and lung; Z82.49 Family history of ischemic heart disease and other diseases of the circulatory system; Z96.641 Presence of right artificial hip joint; Z90.79 Acquired absence of other genital organ(s); Z79.899 Other long term (current) drug therapy; Z85.46 Personal history of malignant neoplasm of prostate; E78.2 Mixed hyperlipidemia
CPT/HCPCS: 72100; 80048; 83735; 85025; 86850; 86891; 86900; 86901; 87635; 93005

== ENCOUNTER → 2021-05-10 | Outpatient (CLI) | payer MEDICARE ==
[2021-05-10 12:05] LABS: African American GFR (CKD) >90 (>60 ml/min/1.73 sqM); Anion Gap 8 mmol/L; Blood Urea Nitrogen 21 mg/dL (9-20); Carbon Dioxide 28 mmol/L (22-30); Chloride 105 mmol/L (98-107); Non-African American GFR(CKD) 80 (>60 ml/min/1.73 sqM); Potassium 4.8 mmol/L (3.5-5.1); Sodium 141 mmol/L (137-145)
[2021-05-10 12:09] LABS: HCT 36.5 % (39.0-53.0); HGB 12.4 gm/dL (13.0-17.5); MCH 29.9 pg (25.0-35.0); MCHC 33.9 g/dL (31.0-37.0); MCV 88.2 fL (80.0-100.0); Mean Platelet Volume 7.2; Platelet Count 209 k/uL (150-450); RBC 4.14 m/uL (4.30-5.90); RDW 14.3 % (11.5-15.5); WBC 4.6 k/uL (3.8-10.6)
== END | disposition home or self-care (01) ==
LOC: LABPAT 11:29
PROVIDERS: ATTEND Internal Medicine Clinical Cardiac Electrophysiology
DX: Z01.812 Encounter for preprocedural laboratory examination (principal); I48.0 Paroxysmal atrial fibrillation
CPT/HCPCS: 36415; 80051; 82565; 84520; 85027

== ENCOUNTER 2021-05-16 05:57 | Day surgery (SDC) | payer MEDICARE ==
[2021-05-11 14:17] VITALS: BMI 32.4
[2021-05-16] MEDS ORDERED: LACTATED RINGERS 1,000 ML IV SCH (06:00)
[2021-05-16] MEDS ORDERED: SODIUM CHLORIDE 0.9% 1,000 ML IV SCH (06:00)
[2021-05-16] MEDS ORDERED: SODIUM CHLORIDE 0.9% 500 ML 500 ML IV ONE (06:10)
[2021-05-16 06:35] VITALS: RESP 16; TEMP 98.4
[2021-05-16] MEDS ORDERED: LIDOCAINE 1% INJ 10MG/ML (20 ML MDV) ONE ×2 (07:18→09:05)
[2021-05-16] MEDS ORDERED: PROPOFOL 10 MG/ML 20 ML VIAL IV ONE ×2 (07:18→09:05)
--- NOTE | 2021-05-16 07:46 | P.EPPROC ---
- EP Procedure Note Electrophysiology Procedure Note: Diagnosis Atrial tachycardia, atrial cycle length 310 ms Broad biphasic T waves in lead V1, lead 1 and aVL In lead V1, initial positive followed by late negative In lead 1 and aVL, initial broad shallow negative followed by terminal upright P wave Patient is on dofetilide and metoprolol Procedure Electrical cardioversion performed successfully with a 200 J biphasic shock in the AP configuration Postprocedure 12-lead EKG revealed sinus bradycardia in the 40s Plan Continue Xarelto Continue Zestril 10 mg twice daily Continue dofetilide 125 g twice daily Continue Vytorin Continue Lasix Stop metoprolol If he has recurrence of this we will proceed with an atrial tachycardia ablation
--- NOTE | 2021-05-16 07:48 | P.PRLE ---
RE: Chau Howard Dear Yosvany Patient presented with an atrial tachycardia, symptomatic with RVR with exercise I performed an electrical cardioversion on him today successfully He has underlying sick sinus syndrome and I'm asked him to stop metoprolol He will continue dofetilide If he has a recurrence of this we will proceed with an atrial tachycardia ablation in the future He will continue xarelto as before Thank you for entrusting me with the care of the patient Warm regards Sincerely Tyler Fagan
[2021-05-16 15:27] VITALS: BP 100/56; PULSE 56
== END 2021-05-16 10:13 | disposition home or self-care (01) ==
LOC: CATHEP 05:57
PROVIDERS: ATTEND Internal Medicine Clinical Cardiac Electrophysiology
DX: I47.1 Supraventricular tachycardia (principal); I49.5 Sick sinus syndrome; Z79.899 Other long term (current) drug therapy; E78.5 Hyperlipidemia, unspecified; I10 Essential (primary) hypertension; G47.33 Obstructive sleep apnea (adult) (pediatric); K21.9 Gastro-esophageal reflux disease without esophagitis; Z20.822 Contact with and (suspected) exposure to COVID-19; Z98.890 Other specified postprocedural states; Z98.1 Arthrodesis status; Z96.641 Presence of right artificial hip joint; Z97.2 Presence of dental prosthetic device (complete) (partial); Z79.01 Long term (current) use of anticoagulants
CPT/HCPCS: 92960; 87635; J2001; J2704

== ENCOUNTER 2021-06-22 06:01 | Day surgery (SDC) | payer MEDICARE ==
[2021-06-20 11:43] VITALS: BMI 33.0
[~2021-06-22 06:01] MED LIST changes: -DEXAMETHASONE SOD PHOSPHATE 4 MG/ML 1 ML VIAL IV ONE; -LIDOCAINE 1% (10MG/ML) FOR IV START INTRADERMA PRN; +SODIUM CHLORIDE 0.9% 1,000 ML IV SCH; -ceFAZolin 1,000 MG in SODIUM CHLORIDE 0.9% IRRIGATIO 1,000 ML IRRIGATION PRN
[2021-06-22] MEDS ORDERED: SODIUM CHLORIDE 0.9% 500 ML 500 ML IV ONE (06:13)
[2021-06-22 06:42] VITALS: RESP 16; TEMP 98.5
[2021-06-22 06:54] LABS: African American GFR (CKD) >90 (>60 ml/min/1.73 sqM); Anion Gap 10 mmol/L; Blood Urea Nitrogen 24 mg/dL (9-20); Calcium 9.6 mg/dL (8.4-10.2); Carbon Dioxide 24 mmol/L (22-30); Chloride 106 mmol/L (98-107); Glucose 120 mg/dL (74-99); Magnesium 2.2 mg/dL (1.6-2.3); Non-African American GFR(CKD) 90 (>60 ml/min/1.73 sqM); Potassium 4.7 mmol/L (3.5-5.1); Sodium 140 mmol/L (137-145)
[2021-06-22] MEDS ORDERED: LIDOCAINE 1% INJ 10MG/ML (20 ML MDV) ONE (07:10)
[2021-06-22] MEDS ORDERED: MIDAZOLAM 2 MG/2 ML VIAL IV ONE (07:33)
[2021-06-22] MEDS ORDERED: LIDOCAINE 1% INJ 10MG/ML (20 ML MDV) SQ ONE ×2 (07:35)
--- NOTE | 2021-06-22 07:52 | P.EPPROC ---
- EP Procedure Note Electrophysiology Procedure Note: Loop monitor implant Primary physicians: Dr. Vail Paramedical Aide: Dr. Fagan Indication: Atrial fibrillation/atrial tachycardia/ Patient was brought to the EP lab in a fasting state. Written informed consent was obtained prior to the procedure. The left pectoral area was prepped and draped per protocol. Intravenous antibiotic was administered preoperatively. A subcutaneous Loop monitor was implanted successfully and the wound was closed per protocol. The device was programmed to detect significant eduardo- arrhythmic and tachy-arrhythmic events, per protocol. Device and programming details: Bradycardia and atrial fibrillation detection programming Patient underwent EP procedure under conscious sedation/moderate sedation, monitoring of the level of consciousness and physiologic parameters including but not limited to vital signs and oxygenation. Patient tolerated the procedure well without any acute complications. Start time: 735 Stop time: 319
--- NOTE | 2021-06-22 07:54 | P.PRLE ---
RE: Chau Howard Dear Yosvany Patient underwent implantation of loop monitor her management of tachybradycardia syndrome and recurrent episodes of atrial tachycardia on dofetilide. Hopefully this will assist in further management of atrial fibrillation as well as his tendency for Sick Sinus Syndrome. Thank you for entrusting me with the care of the patient Warm regards Sincerely Tyler Fagan
--- NOTE | 2021-06-22 07:57 | P.PN ---
Progress Note - Text Patient is on dofetilide his electrolytes were checked this morning Sodium 140, potassium 4.7 BUN 24 and creatinine 0.9 Magnesium 2.2 Plan Continue dofetilide
[2021-06-22 09:13] VITALS: BP 114/64; PULSE 68
== END 2021-06-22 09:12 | disposition home or self-care (01) ==
LOC: CATHEP 06:01
PROVIDERS: ATTEND Internal Medicine Clinical Cardiac Electrophysiology
DX: I48.91 Unspecified atrial fibrillation (principal); I47.1 Supraventricular tachycardia; I49.5 Sick sinus syndrome
CPT/HCPCS: 33285; 80048; 83735; C1764; J2250; J0690; J2001

== ENCOUNTER → 2021-11-01 | Outpatient (CLI) | payer MEDICARE ==
--- NOTE | 2021-11-01 18:46 | CONS ---
CONSULTATION DATE OF SERVICE: 11/01/2021 This 66-year-old gentleman has been evaluated in Sleep Center for obstructive sleep apnea-hypopnea syndrome. HISTORY OF PRESENT ILLNESS/SLEEP-WAKE EVALUATION: The last time I saw this patient in Sleep Center was in September of 2018, which is more than 3 years ago. Since that time, patient has continued to to use his CPAP equipment every night for the whole night. His sleep schedule is from 10 or 11 p.m. until 7 a.m. 7 days a week. He still may wake up with the machine 2 or 3 times with nocturia. No history of hypnagogic hallucinations, sleep paralysis or cataplexy. I checked his CPAP unit. It is in automatic regimen. Range of the pressure is 5 to 14, average pressure 13.7. The patient used it every night, 8.2 hours per night. Leak is 11 L/minute, which is normal range. Apnea-hypopnea index is only 1.6, which is perfect. PAST MEDICAL HISTORY: Positive for atrial fibrillation with recent loop recording insertion, hypertension, acid reflux, prostate carcinoma, treated surgically, osteoarthritis. PAST SURGICAL HISTORY: Back fusion, neck fusion, loop net insertion, total right hip replacement. MEDICATIONS: 1. Celebrex 200 mg twice a day. 2. Lasix 20 mg once a day. 3. Lisinopril 10 mg twice a day. 4. Pepcid 20 mg once a day. 5. Vytorin once a day. 6. 20 mg once a day. 7. Hydrocodone 7.5/325 two or three times a day. 8. Tylenol. 9. Metamucil. SOCIAL HISTORY: Negative for smoking or using alcohol. FAMILY HISTORY: Heart problems, hypertension, hyperlipidemia, snoring. PHYSICAL EXAMINATION: GENERAL: Pleasant gentleman without distress. VITAL SIGNS: BP 142/82, HR 66, RR 16, height 5 feet 10 inches, weight 239.4, body mass index 34.2, temperature 97.5, oxygen saturation at room air 99%. HEENT: PERRLA, EOMI, evaluation of oropharynx showed tongue protrudes midline. Extremely low position of soft palate; Mallampati IV. NECK: Supple, no JVD. Thyroid is not palpable. Neck measures 17-1/2 inches in circumference. LUNGS: Clear to percussion and to auscultation. Good air exchange. No wheezing or rhonchi. HEART: S1, S2 regular. No murmurs, gallops, or rubs. ABDOMEN: Soft and nontender. Bowel sounds are present. No organomegaly appreciated. EXTREMITIES: No clubbing or cyanosis. GLOBAL CONSUMER SECTOR VICE PRESIDENT: Awake, alert, and oriented X3. Cranial nerves 2 to 7 intact. There is no fasciculation or atrophy. noted. No focal deficits observed. IMPRESSION: 1. Obstructive sleep apnea-hypopnea syndrome. Reading from the machine indicates 100% compliance with treatment. Normal respiration on CPAP. 2. History of atrial fibrillation, status post cardioversion and ablation, on loop recorder. 3. Hypertension. 4. Acid reflux. 5. History of prostate carcinoma, treated surgically. 6. History of osteoarthritis of hands, back and hips. 7. Status post total right hip replacement. PLAN: 1. Patient will continue to use CPAP equipment every night for the whole night. 2. Prescription for all necessary CPAP supplies, including mask, tube, filters. 3. Losing weight. 4. Sleep hygiene with regular time in bed for at least 7-1/2 to 8 hours. 5. No driving if feeling sleepiness. 6. Follow-up visit in 6 months. Thank you very much for referring this patient for consultation. Sincerely, Lenin Medina MD, PhD, FAASM Diplomat of [employer] Sleep Medicine Board of [employer] Puffer Tender of [facility] [place] MMODL / AMANDA: [id number] /
== END ==
LOC: SLEEP 15:11
PROVIDERS: ATTEND Internal Medicine
DX: G47.33 Obstructive sleep apnea (adult) (pediatric) (principal); I48.91 Unspecified atrial fibrillation; I10 Essential (primary) hypertension; K21.9 Gastro-esophageal reflux disease without esophagitis; Z85.46 Personal history of malignant neoplasm of prostate; Z87.39 Personal history of other diseases of the musculoskeletal system and connective tissue; Z96.641 Presence of right artificial hip joint; Z99.89 Dependence on other enabling machines and devices; Z79.899 Other long term (current) drug therapy; Z88.8 Allergy status to other drugs, medicaments and biological substances
CPT/HCPCS: 99211

== ENCOUNTER → 2021-12-08 | Outpatient (CLI) | payer MEDICARE ==
[2021-12-08 14:46] LABS: African American GFR (CKD) 81.2 (60.0-200.0); Albumin 4.6 g/dL (3.8-4.9); Albumin/Globulin Ratio 1.7 (1.60-3.17); Anion Gap 12.2 mmol/L (10.00-18.00); BUN/Creat Ratio 16.64 Ratio (12.00-20.00); Blood Urea Nitrogen 18.3 mg/dL (9.0-27.0); Calcium 9.8 mg/dL (8.7-10.3); Carbon Dioxide 23.8 mmol/L (20.0-27.5); Globulin 2.7 g/dL (1.6-3.3); Non-African American GFR(CKD) 70.1 (60.0-200.0); Potassium 4.8 mmol/L (3.5-5.5); Total Bilirubin 0.4 mg/dL (0.30-1.20); Total Protein 7.3 g/dL (6.2-8.2)
== END | disposition home or self-care (01) ==
LOC: LABWHC1 08:39
PROVIDERS: ATTEND Nurse Practitioner Adult Health
DX: I10 Essential (primary) hypertension (principal)
CPT/HCPCS: 36415; 80053; 83735

== ENCOUNTER → 2022-08-27 | Outpatient (CLI) | payer MEDICARE ==
[2022-08-27 17:56] LABS: African American GFR (CKD) 73.1 (60.0-200.0); Anion Gap 9.6 mmol/L (10.00-18.00); BUN/Creat Ratio 18.42 Ratio (12.00-20.00); Blood Urea Nitrogen 22.1 mg/dL (9.0-27.0); Calcium 9.4 mg/dL (8.7-10.3); Carbon Dioxide 24.4 mmol/L (20.0-27.5); Magnesium 2.2 mg/dL (1.5-2.4); Non-African American GFR(CKD) 63.1 (60.0-200.0); Potassium 4.8 mmol/L (3.5-5.5)
== END | disposition home or self-care (01) ==
LOC: LABWHC1 13:59
PROVIDERS: ATTEND Internal Medicine Clinical Cardiac Electrophysiology
DX: I10 Essential (primary) hypertension (principal)
CPT/HCPCS: 36415; 80048; 83735

== ENCOUNTER → 2023-03-22 | Outpatient (CLI) | payer MEDICARE ==
[2023-03-22 15:24] LABS: HCT 43.9 % (39.6-50.0); HGB 13.8 g/dL (13.0-17.0); MCH 29.4 pg (27.0-32.0); MCHC 31.4 g/dL (32.0-37.0); MCV 93.6 fL (80.0-97.0); Mean Platelet Volume 9.7 fL (9.5-12.2); NRBC Per 100 WBC 0 /100 WBCS (0.0-0.0); Platelet Count 197 X 10*3/uL (140-440); RBC 4.69 X 10*6/uL (4.40-5.60); RDW 12.9 % (11.5-14.5); WBC 3.96 X 10*3/uL (4.50-10.00)
[2023-03-22 16:21] LABS: African American GFR (CKD) 82.5 (60.0-200.0); BUN/Creat Ratio 22.69 Ratio (12.00-20.00); Blood Urea Nitrogen 24.5 mg/dL (9.0-27.0); Calcium 9.6 mg/dL (8.7-10.3); Carbon Dioxide 24.4 mmol/L (20.0-27.5); Chloride 106 mmol/L (96-109); Chol/HDL Ratio 2.81 Ratio; Glucose 120 mg/dL (70-110); LDL Cholesterol,Calculated 57.2 mg/dL (0.0-131.0); Magnesium 2.4 mg/dL (1.5-2.4); Non-African American GFR(CKD) 71.1 (60.0-200.0); Potassium 5.5 mmol/L (3.5-5.5); Sodium 140 mmol/L (135-145); VLDL Calculation 16.86 mg/dL (5.00-40.00)
== END | disposition home or self-care (01) ==
LOC: LABWHC1 08:38
PROVIDERS: ATTEND Family Medicine
DX: Z00.01 Encounter for general adult medical examination with abnormal findings (principal); I10 Essential (primary) hypertension; E66.3 Overweight; N40.1 Benign prostatic hyperplasia with lower urinary tract symptoms; R53.83 Other fatigue
CPT/HCPCS: 36415; 80048; 80061; 83735; 84153; 85027

== ENCOUNTER → 2023-08-05 | Outpatient (CLI) | payer MEDICARE ==
--- NOTE | 2023-08-05 13:28 | P.PN ---
Subjective DATE: 08/05/2023 FOLLOW UP VISIT. Patient with obstructive sleep apnea hypopnea syndrome return to sleep center for follow-up visit. Information from previous visit have been reviewed. Patient is using PAP equipment every night for the whole night, getting PAP supplies in time. The patient does not have significant problems with the mask, PAP unit and humidification. [place] sleepiness scale is 0. I checked information from PAP unit. PAP unit pressure 5-14, average 13.1 cm H2O. Usage is 100 % for more then 4 hours, average 8.1 hours per night. Leak is 14 l/m, which is in acceptable range. Apnea Hypopnea Index is 1.8, which is normal. MEDICATIONS:1. Metoprolol 25 mg twice a day 2. Furosemide 20 mg once a day 3. Pepcid 20 mg once a day 4. Simvastatin once a day 5. Xarelto 20 mg once a day 6. Celebrex 200 mg twice a day During physical exam: GENERAL: A pleasant patient without any distress. VITAL SIGNS: BP 133/76, HR 51, RR 16 , weight 241.6, temperature 98.1, oxygen saturation at room air 98 % . HEENT: PERRLA, EOMI.low position of soft palate, Mallapati 4 . NECK: Supple. No JVD. LUNGS: Clear to percussion and to auscultation. Good air exchange. No wheezing or rhonchi. HEART: S1, S2 regular. ABDOMEN: Soft and nontender.[] EXTREMITIES: No clubbing or cyanosis. COMMERCIAL REAL ESTATE BROKER: Awake, alert, and oriented x3. No focal deficit. Impressions: 1. Obstructive sleep apnea-hypopnea syndrome. Patient demonstrated great compliance with treatment, benefiting from treatment. 2. History of atrial fibrillation, status post cardio version and ablation, on loop recorder 3. Acid reflux. 4. Hypertension. 5. Status post surgical treatment for prostate cancer. 6. Status post right hip replacement. 7. History of osteoarthritis. Plan: 1. Continue using PAP equipment every night for the whole night. 2. To change air filter at least 1-2 times per month. 3. PAP unit should stay lower then position of the head. 4. Advised patient to remove all remaining water from humidifier canister daily and make it dry after each usage. Refill canister with fresh distilled water before each usage. 5. Sleep hygiene with regular time in bed for at least 8 hours. 6. Precautions related to driving. No driving if feel any sleepiness. 7. I will maintain prescription for PAP supplies including mask, tube, filters. 8. Follow up visit in 6 months or earlier if patient has any problems. 9. Watching weight. Thank you very much for allowing me to participate in the management of your patient. Lenin Medina MD, PhD, FAASM. Diplomat of [employer], Sleep Medicine Board by [employer] Worship Leader of [facility] [place]
== END ==
LOC: 3 N SLEEP 11:17
PROVIDERS: ATTEND Internal Medicine
DX: G47.33 Obstructive sleep apnea (adult) (pediatric) (principal); I48.91 Unspecified atrial fibrillation; I10 Essential (primary) hypertension; K21.9 Gastro-esophageal reflux disease without esophagitis; M19.90 Unspecified osteoarthritis, unspecified site; Z79.01 Long term (current) use of anticoagulants; Z79.899 Other long term (current) drug therapy; Z85.46 Personal history of malignant neoplasm of prostate; Z96.641 Presence of right artificial hip joint; Z98.890 Other specified postprocedural states; Z99.89 Dependence on other enabling machines and devices; Z88.8 Allergy status to other drugs, medicaments and biological substances
CPT/HCPCS: 99212

== ENCOUNTER → 2023-11-01 | Outpatient (CLI) | payer MEDICARE ==
[2023-11-02 01:59] LABS: BUN/Creat Ratio 22.45 Ratio (12.00-20.00); Blood Urea Nitrogen 24.7 mg/dL (9.0-27.0); Calcium 9.9 mg/dL (8.7-10.3); Carbon Dioxide 24.5 mmol/L (21.6-31.8); Chloride 105 mmol/L (96-109); Glucose 103 mg/dL (70-110); Magnesium 2.1 mg/dL (1.5-2.4); Potassium 4.9 mmol/L (3.5-5.5); Sodium 140 mmol/L (135-145)
== END | disposition home or self-care (01) ==
LOC: LABWHC1 16:32
PROVIDERS: ATTEND Internal Medicine Clinical Cardiac Electrophysiology
DX: I48.19 Other persistent atrial fibrillation (principal)
CPT/HCPCS: 36415; 80048; 83735

== ENCOUNTER → 2024-03-02 | Outpatient (CLI) | payer MEDICARE ==
[2024-03-02 10:15] LABS: INR 1.1 (<1.2); Partial Thromboplastin Time 27.3 sec (22.0-30.0); Prothrombin Time 11.6 sec (10.0-12.5)
[2024-03-02 15:36] LABS: Basophils # (A) 0.04 X 10*3/uL (0.00-0.10); Basophils % (A) 0.9 %; Eosinophils # (A) 0.13 X 10*3/uL (0.04-0.35); Eosinophils % (A) 2.9 %; HGB 12.8 g/dL (13.0-17.0); Lymphocytes # (A) 1.24 X 10*3/uL (0.90-5.00); Lymphocytes % (A) 27.7 %; MCH 29.4 pg (27.0-32.0); MCV 91.7 FL (80.0-97.0); Mean Platelet Volume 9.2 FL (9.5-12.2); Monocytes # (A) 0.62 X 10*3/uL (0.20-1.00); Monocytes % (A) 13.8 %; NRBC Per 100 WBC 0 X 10*3/uL (0.00-0.01); Neutrophils # (A) 2.43 X 10*3/uL (1.80-7.70); Neutrophils % (A) 54.3 %; Platelet Count 215 X 10*3/uL (140-440); RBC 4.36 X 10*6/uL (4.40-5.60); RDW 13.1 % (11.5-14.5); WBC 4.48 X 10*3/uL (4.50-10.00)
[2024-03-02 15:58] LABS: ALT 24 U/L (10-49); AST 23 U/L (14-35); Albumin 4.5 g/dL (3.8-4.9); Alkaline Phosphatase 85 U/L (41-126); Blood Urea Nitrogen 19.8 mg/dL (9.0-27.0); Calcium 9.5 mg/dL (8.7-10.3); Carbon Dioxide 23.7 mmol/L (21.6-31.8); Chloride 104 mmol/L (96-109); Chol/HDL Ratio 2.85 Ratio; Glucose 135 mg/dL (70-110); LDL Cholesterol,Calculated 59.4 mg/dL (0.0-131.0); Potassium 5.6 mmol/L (3.5-5.5); Prostate Specific Antigen 0.02 ng/mL (0.000-4.500); Sodium 140 mmol/L (135-145); Total Bilirubin 0.4 mg/dL (0.3-1.2); Total Protein 7.5 g/dL (6.2-8.2); VLDL Calculation 17.94 mg/dL (5.00-40.00)
[2024-03-02 17:30] LABS: Appearance,Urine Clear (Clear); Bilirubin,Urine Negative (Negative); Blood,Urine Negative (Negative); Color,Urine Yellow (Yellow); Ketones,Urine Negative (Negative); Nitrite,Urine Negative (Negative); Specific Gravity,Urine 1.017 (1.001-1.030); Urobilinogen,Urine 0.2 E.U./DL
== END | disposition home or self-care (01) ==
LOC: LABPAT 08:58
PROVIDERS: ATTEND Orthopaedic Surgery
DX: Z01.812 Encounter for preprocedural laboratory examination (principal); Z22.322 Carrier or suspected carrier of Methicillin resistant Staphylococcus aureus; M16.12 Unilateral primary osteoarthritis, left hip; E66.3 Overweight; N40.1 Benign prostatic hyperplasia with lower urinary tract symptoms; I44.0 Atrioventricular block, first degree; I45.4 Nonspecific intraventricular block; I45.81 Long QT syndrome; R53.83 Other fatigue
CPT/HCPCS: 36415; 80053; 80061; 81003; 84153; 85025; 85610; 85730; 86850; 86900; 86901; 87070; 93005

== ENCOUNTER 2024-03-10 07:08 | Day surgery (SDC) | payer MEDICARE ==
[~2024-03-10 07:08] MED LIST changes: +ACETAMINOPHEN TAB 500 MG TAB PO PRN; +HYDROmorphone 0.5 MG/0.5 ML SYRINGE IVP PRN; +LIDOCAINE 1% (10MG/ML) FOR IV START INTRADERMA PRN; +MIDAZOLAM 2 MG/2 ML VIAL IV PRN; -SODIUM CHLORIDE 0.9% 1,000 ML IV SCH; +TRANEXAMIC 1,000 MG/100ML-NACL 1,000 MG in SALINE 1 100ML.BAG IVPB PRN
[2024-03-10] MEDS: LACTATED RINGERS 1,000 ML IV SCH (07:49)
[2024-03-10] MEDS ORDERED: ONDANSETRON 4 MG/2 ML VIAL ONE (07:53)
[2024-03-10] MEDS: DEXAMETHASONE SOD PHOSPHATE 4 MG/ML 1 ML VIAL IV ONE (08:37)
[2024-03-10] MEDS: MELOXICAM 7.5 MG TAB PO PRN (08:37)
[2024-03-10] MEDS: GABAPENTIN 300 MG CAP PO PRN (08:37)
[2024-03-10] MEDS: ONDANSETRON 4 MG/2 ML VIAL IVP ONE (08:38)
[2024-03-10] MEDS ORDERED: MAGNESIUM HYDROXIDE 2,400 MG/30 ML CUP PO PRN (08:43)
[2024-03-10] MEDS ORDERED: HYDROmorphone 0.5 MG/0.5 ML SYRINGE IVP PRN ×2 (08:43)
[2024-03-10] MEDS ORDERED: NALOXONE 0.4 MG/ML 1 ML VIAL IV PRN (08:43)
[2024-03-10] MEDS ORDERED: HYDROcodone/APAP 7.5-325MG 1 EACH TAB PO PRN (08:45)
[2024-03-10] MEDS: ROPIVACAINE 5 MG/ML 30 ML VIAL MISCELLANE ONE ×2 (09:04→10:28)
[2024-03-10] MEDS: MIDAZOLAM 2 MG/2 ML VIAL IVP ONE (09:13)
[2024-03-10] MEDS: fentaNYL (PF) 50 MCG/ML 2 ML AMP IVP ONE (09:13)
[2024-03-10] MEDS ORDERED: TRANEXAMIC 1,000 MG/100ML-NACL PREMIX BAG ONE (09:24)
[2024-03-10] MEDS ORDERED: fentaNYL (PF) 50 MCG/ML 2 ML AMP ONE (09:24)
[2024-03-10] MEDS ORDERED: LIDOCAINE 1% INJ 10MG/ML (20 ML MDV) ONE (09:24)
[2024-03-10] MEDS ORDERED: PHENYLEPHRINE-0.9% NACL SYG 1,000 MCG/10 ML SYRINGE ONE (09:24)
[2024-03-10] MEDS ORDERED: ROPIVACAINE 5 MG/ML 30 ML VIAL ONE (09:24)
[2024-03-10] MEDS ORDERED: PROPOFOL 10 MG/ML 20 ML VIAL IV ONE (09:24)
[2024-03-10] MEDS: ceFAZolin 1,000 MG in SODIUM CHLORIDE 0.9% 1,000 ML IRRIGATION ONE (09:26)
[2024-03-10] MEDS: LACTATED RINGERS 1,000 ML IV ONE (10:35)
--- NOTE | 2024-03-10 10:38 | P.OP ---
Date of Procedure: 03/10/24 Preoperative Diagnosis: severe osteoarthritis of the left hip Postoperative Diagnosis: severe osteoarthritis left hip Procedure(s) Performed: left total hip arthroplasty with a direct anterior approach Implants: Pimentel & Nephew Polarstem standard size 1 with collar Pimentel [employer] Nephew R3, 3 hole hemispherical acetabular shell, 52 mm Pimentel & Nephew Reflection 6.5 mm cancellus screw, 25 mm 2 Pimentel [employer] Nephew R3, XLPE 20 acetabular liner Pimentel & Nephew Oxinium femoral head 36 mm, +0 All components were press-fit. The articulation is Oxinium on polyethylene. Anesthesia: spinal Surgeon: Vik Bernardo Shellac Polisher #1: Esther Almanza Estimated Blood Loss (ml): 250 Pathology: none sent Condition: stable Disposition: PACU Indications for Procedure: After failure of conservative treatment we discussed the surgical and non surgical treatment options at length. Patient wishes to proceed with a total hip arthroplasty with a direct anterior approach. Complications specific to this procedure were discussed at length, including but not limited to infection, leg length discrepancy, dislocation, nerve injury, and fracture. Covid-19 was also discussed at length with the patient, and they are aware of the current policies and procedures. The patient was given the option of delaying surgery, but they elect to proceed knowing these risks. Patient is aware of all these complications and informed consent was obtained Operative Findings: the operative findings are consistent with severe osteoporosis the left hip Description of Procedure: The patient was seen and evaluated in the preoperative area and the consent was reviewed. The operative site was marked with a skin marker. The patient verified the procedure and operative site. A LUANA block was placed by anesthesia in the preoperative area. The patient was then brought to the operating room and given preoperative antibiotics intravenously. 1 g of Tranexamic acid was also given intravenously. A spinal anesthetic was administered by the anesthesia department. The patient was then placed on the Brandon table with the bony prominences well-padded. The hip area was then prepped with a ChloraPrep solution and draped in the usual sterile fashion. A universal timeout was then performed, which confirmed the patient's name, surgical site, ALLERGIES, and procedure being performed on the consent. Next the incision site was located at 1 cm distal and 4 cm lateral to the anterior superior iliac spine. The skin and subcutaneous tissues were sharply incised. Incision was carefully dissected down to the fascia overlying the tensor fascia bala muscle. This fascia was then incised in line with the muscle fibers. Care was taken to stay laterally in order to avoid injuring the lateral femoral cu taneous nerve. Next, using blunt finger dissection, the tensor fascia bala muscle was dissected off its investing fascia. The muscle was then carefully retracted laterally with a cobra retractor over the lateral neck of the femur. Next, the circumflex vessels were identified and cauterized using the Aquamantis device. The anterior hip capsule was then exposed. The capsule was then opened and an inverted T fashion. The retractors were then placed intracapsularly. The retractors were maintained intracapsular throughout the procedure. The proximal femur was then visualized. Fluoroscopic x-rays were then taken in order to evaluate the preoperative leg lengths. A small amount of traction was placed on the leg. The femoral neck was then osteotomized at the appropriate level above the lesser trochanter. A small wedge of bone was then removed from the remaining femoral head. Next, using a corkscrew the femoral head was removed from the acetabulum. On gross visual inspection, the femoral head had complete loss of articular cartilage and multiple periarticular osteophytes. The femoral head was then measured. Attention was then turned to the acetabulum. The acetabulum was exposed and any remaining labrum was excised. Sequential reaming of the acetabulum was performed using fluoroscopic guidance until there was a good bed of bleeding cancellus bone. When the appropriate size was reached, a trial was then placed. The position and fit of the trial was checked with fluoroscopy. The trial was then removed. Then, using fluoroscopic guidance, the final implant was impacted at 20 of anteversion and 40 of abduction, and fully seated in the acetabulum. 2 screws were then placed in the acetabulum. Again fluoroscopy was used to check position of the screws. Next, the liner was then impacted, with a 20 elevated liner located in the anterior superior quadrant. Component locking was confirmed. Attention was then directed to the femur. With the aid of the Brandon table, the femur was externally rotated to approximately 130, extended, and adducted under the opposite leg. A side hook was then placed under the proximal femur, and the side hook elevator was used to elevate the proximal femur while releasing the capsule. Retractors were then placed. A capsular release was performed, as well as a release of the conjoined tendon, which afforded excellent visua lization of the proximal femur. Next, a box osteotome was used to lateralize the proximal femur. A cloth handler was then used to locate the femoral canal. Sequential broaching was then performed with appropriate size which afforded excellent fixation in the proximal femur. A trial was then placed with appropriate head and neck, and the hip was gently reduced with the aid of the Brandon table. Fluoroscopy was then used to check position of the components, as well as to evaluate the leg lengths and offset. The leg lengths and offset were measured as closely as possible to ensure stability of the hip. The hip was then gently dislocated and the trials were then removed. Final implants were then impacted and the hip was again reduced. Final fluoroscopic x-rays confirmed that the components were in anatomic position. The leg lengths and offset were measured and were found to coincide with the trial measurements. The hip was also taken through range of motion, and found to be stable. The hip was then copiously irrigated with antibiotic solution with pulsatile lavage. The hip was then irrigated with Irrisept solution. The soft tissues were then injected with a ropivacaine solution. A second dose of 1 g of Tranexamic acid was also given intravenously. The fascia was then closed with 2-0 strata fix suture. The subcutaneous tissue was closed with 3-0 Vicryl. The subcuticular tissue was closed with 3-0 strata fix suture. The skin was then closed with Exofin skin glue. After the glue and dried, and Optifoam silver impregnated dressing was applied. The patient was then transferred to the recovery room in stable condition. The dietitian assistant VENKAT Mijares was required due to the complexity of surgery, and the need for skilled surgical instrument maker for positioning, draping, exposure, retraction, and closure of the wound.
--- NOTE | 2024-03-10 11:25 | XR ---
EXAMINATION TYPE: XR Hip Limited LT DATE OF EXAM: 03/10/2024 11:19 AM CLINICAL INDICATION:Male, 68 years old with history of Status post hip surgery, assess surgical align ment; [facility] COMPARISON: None. TECHNIQUE: XR Hip Limited LT; hip was examined in a frontal projection FINDINGS: Total hip arthroplasty is then performed. The hardware is intact, well-positioned and without evidenc e of complication. No evidence for acute process, joint dislocation or significant soft tissue swelling. IMPRESSION: Total hip arthroplasty is then performed. The hardware is intact, well-positioned and without evidenc e of complication.
--- NOTE | 2024-03-10 13:43 | P.ANPRN ---
Procedure Note - Anesthesia - Nerve Block Performed Left Rocky Single Time Out Performed: Yes ([id number]) Date of Procedure: 03/10/24 Procedure Start Time: :13 Procedure Stop Time: :18 Location of Patient: PreOp Indication: Acute Post-Operative Pain, Requested by Surgeon Specifically requested for management of pain by DrDevante: Vik Bernardo Sedation Type: Sedate with meaningful contact maintained Preparation: Sterile Prep Position: Supine Catheter: None Needle Types: Pajunk Needle Gauge: 21 Ultrasound used to visualize needle placement: Yes Ultrasound used to observe medication spread: Yes Injectate: 0.5% Ropivacaine (see comment for volume) (30cc) Blood Aspirated: No Pain Paresthesia on Injection Noted: No Resistance on Injection: Normal Image Stored and Saved: Yes Events: Uneventful and Well Tolerated
[2024-03-10] MEDS: SODIUM CHLORIDE 0.9% 1,000 ML IV SCH (16:49)
--- NOTE | 2024-03-10 16:53 | P.CONS ---
History of Present Illness - Reason for Consult Consult date: 03/10/24 - History of Present Illness 68 year old M with PMH of HTN, AFib, GERD, HLD presents to [facility] for elective surgery. He underwent left total hip arthroplasty with Dr. Bernardo. [facility] has been consulted for medical management of this patient. Patient reports numbness along his groin and waist bilaterally. He reports leaking urine. No bowel movement. Not passing gas. No other complaints. P ostassium is 5. General: non toxic, no distress, appears at stated age Derm: warm, dry Head: atraumatic, normocephalic, symmetric Eyes: EOMI, no lid lag, anicteric sclera Mouth: no lip lesion, mucus membranes moist Cardiovascular: S1S2 reg, no murmur Lungs: CTA bilateral, no rhonchi, no rales , no accessory muscle use Abdominal: soft, nontender to palpation, no guarding, no appreciable organomeg zohreh Ext: no gross muscle atrophy, no edema, no contractures Neuro: no focal neuro deficits Psych: Alert, oriented, appropriate affect Based on my assessment of this patient, this patient meets a high complexity level of care. Patient has an chronic diagnosis of HTN, AFib, GERD, HLD that poses a threat to life or bodily function. Hypertension: Enalapril 10 mg PO BID. Metoprolol 12.5 mg PO BID. Atrial fibrillation: Metoprolol as above. Tikosyn 125 mcg PO BID. Xarelto 20 mg PO QD for AC. GERD: Pepcid 20 mg PO QD. Dyslipidemia: Vytorin 10-40 mg PO QHS. CODE STATUS: FULL CODE. DVT Prophylaxis: Xarelto GI Prophylaxis: Pepcid Designated medical POA if patient is not able to make medical decisions for themselves: I have reviewed the following retirement consultant notes: Operative note I have reviewed the results of the following tests: As above I have ordered the following tests: As above I have discussed the care of this patient with the following independent historian: . I have independently interpreted the following test below: I have discussed the management of this patient with the following physician: Past Medical History Past Medical History: Atrial Fibrillation, Cancer, CVA/TIA, Eye Disorder, GERD/Reflux, Hearing Disorder / Deafness, Hyperlipidemia, Hypertension, Osteoarthritis (OA), Prostate Disorder, Sleep Apnea/CPAP/BIPAP Additional Past Medical History / Comment(s): SEE H & P FOR CARDIOVASCULAR NOTES PROVIDED BY DR. BATES. MRI SHOWED MINI STROKE HAS SEVERE HEARING LOSS LT EAR 2012,USE CPAP partly because of small airway per ,PROSTATE CA-NO RAD OR CHEM >5 yrs ago. rt arm does not straighten out. macular degeneration History of Any Multi-Drug Resistant Organisms: None Reported Past Surgical History: Back Surgery, Cardiac Ablation, Hernia Repair, Orthopedic Surgery, Prostate Surgery Additional Past Surgical History / Comment(s): CERVICAL -FUSION C-3-C-7,RIGHT ELBOW, CARPAL TUNNEL, INGUINAL HERNIA , AND LOWER BACK FUSION. CARDIOVERSION IN JANUARY 2015. 06-28-15 CARDIAC ABLATION AND CARDIOVERSION(FOR AFIB), CARDIOVERSION,PROSTATECOMY 2007 Past Anesthesia/Blood Transfusion Reactions: Postoperative Nausea & Vomiting (PONV) Additional Past Anesthesia/Blood Transfusion Reaction / Comm: SLOW TO AWAKEN X1. SISTER HAS PONV. pt states pt wants it known he has a small airway and may need a smaller tube. that is why he wears a cpap. no issues know with in tubation. Past Psychological History: No Psychological Hx Reported Additional Psychological History / Comment(s): PT IS RETIRED. Smoking Status: Never smoker Past Alcohol Use History: None Reported Past Drug Use History: None Reported - Past Family History Father Family Medical History: Cancer, Myocardial Infarction (NM) Additional Family Medical History / Comment(s): LUNG CANCER, SMOKED SINCE AGE 13. Mother Family Medical History: Hypertension Additional Family Medical History / Comment(s): ENLARGED HEART. Medications and Allergies Home Medications Medication Instructions Recorded Confirmed Type Celecoxib [CeleBREX] 200 mg PO BID 01/24/15 03/10/24 History Ezetimibe/Simvastatin [Vytorin 1 tab PO HS 01/24/15 03/10/24 History 10-40 mg Tablet] Famotidine [Pepcid] 20 mg PO DAILY 01/24/15 03/10/24 History Furosemide [Lasix] 20 mg PO QAM 01/24/15 03/10/24 History HYDROcodone/APAP 7.5-325MG [[place] 1 - 2 tab PO TID PRN 01/24/15 03/10/24 History 7.5-325] Rivaroxaban [Xarelto] 20 mg PO HS 01/24/15 03/10/24 History Hypromellose [Artificial Tears] 1 drop BOTH EYES DAILY PRN 03/21/15 03/10/24 History Magnesium Chloride [Slow-Mag] 64 mg PO HS 01/09/16 03/10/24 History lisinopriL [Zestril] 10 mg PO BID 03/31/19 03/10/24 History Dofetilide [Tikosyn] 125 mcg PO BID 05/13/19 03/10/24 History Psyllium Husk (with Sugar) 1 dose PO BID PRN 08/18/20 03/10/24 History [Metamucil Powder] Vit C/E/Zn/Coppr/Lutein/Zeaxan 2 each PO BID 03/10/21 03/10/24 History [Preservision Areds 2 Softgel] Cyclobenzaprine [Flexeril] 10 mg PO TID PRN #90 tab 03/17/21 03/10/24 Rx Acetaminophen [Tylenol Arthritis] 650 mg PO BID 03/04/24 03/10/24 History Enalapril [Vasotec] 10 mg PO BID 03/04/24 03/10/24 History Metoprolol Tartrate [Lopressor] 12.5 mg PO BID 03/04/24 03/10/24 History HYDROcodone/APAP 7.5-325MG [[place] 1 - 2 tab PO Q6H PRN #32 tab 03/10/24 Rx 7.5-325] Sennosides [Senokot] 2 tab PO DAILY PRN #60 tablet 03/10/24 Rx Allergies Allergy/AdvReac Type Severity Reaction Status Date / Time amiodarone AdvReac muscle Verified 03/04/24 13:13 tremors flecainide AdvReac bradycardia Verified 03/04/24 13:13 Physical Exam Vitals: Vital Signs Temp Pulse Resp BP BP Pulse Ox 03/10/24 15:17 98.5 F 69 17 153/89 95 03/10/24 14:00 66 18 127/69 98 03/10/24 13:00 59 L 18 142/68 98 03/10/24 12:45 63 16 138/84 97 03/10/24 12:30 57 L 16 131/83 96 03/10/24 12:15 57 L 16 118/65 94 L 03/10/24 12:00 59 L 18 128/61 98 03/10/24 11:45 56 L 18 108/74 98 03/10/24 11:30 60 10 L 127/77 98 03/10/24 11:15 66 10 L 107/63 98 03/10/24 10:57 97.7 F 67 10 L 123/63 98 03/10/24 09:22 62 16 154/80 97 03/10/24 07:59 97.6 F 70 16 150/84 96 Intake and Output 03/10/24 03/10/24 03/10/24 06:59 14:59 22:59 Intake Total 1851 Output Total 250 Balance 1601 Intake: IV 1851 Output: Estimated Blood Loss 250 Other: Weight 109 kg 109 kg Results CBC & Chem 7: 03/10/24 08:45
[2024-03-10] MEDS: HYDROcodone/APAP 7.5-325MG 1 EACH TAB PO PRN (17:16)
[2024-03-10] MEDS: DOFETILIDE 125 MCG CAP PO SCH (17:50)
[2024-03-10] MEDS: EZETIMIBE 10 MG TAB PO SCH (21:18)
[2024-03-10] MEDS: lisinopriL 20 MG TAB PO SCH (21:18)
[2024-03-10] MEDS: ATORVASTATIN 20 MG TAB PO SCH (21:18)
[2024-03-10] MEDS: METOPROLOL TARTRATE 12.5 MG TAB PO SCH (21:18)
[2024-03-10] MEDS: SENNOSIDES-DOCUSATE SODIUM 1 EACH TAB PO SCH (21:18)
[2024-03-10] MEDS: HYDROmorphone 0.5 MG/0.5 ML SYRINGE IVP PRN (21:19)
[2024-03-11] MEDS: ONDANSETRON 4 MG/2 ML VIAL IVP PRN (00:52)
[2024-03-11 06:41] LABS: African American GFR (CKD) >90 (>60 ml/min/1.73 sqM); Anion Gap 8 mmol/L; Blood Urea Nitrogen 27 mg/dL (9-20); Calcium 8.5 mg/dL (8.4-10.2); Carbon Dioxide 22 mmol/L (22-30); Chloride 103 mmol/L (98-107); Glucose 149 mg/dL (74-99); Non-African American GFR(CKD) 89 (>60 ml/min/1.73 sqM); Potassium 4.7 mmol/L (3.5-5.1); Sodium 133 mmol/L (137-145)
[2024-03-11] MEDS: FAMOTIDINE 20 MG TAB PO SCH (08:00)
[2024-03-11] MEDS: FUROSEMIDE 20 MG TAB PO SCH (08:00)
[2024-03-11 08:11] VITALS: BP 132/74; PULSE 84; RESP 17; TEMP 98.3
[2024-03-11 08:32] LABS: HGB 11.6 g/dL (13.0-17.0); MCH 29.1 pg (27.0-32.0); MCHC 32.2 g/dL (32.0-37.0); MCV 90.5 FL (80.0-97.0); Mean Platelet Volume 9.5 FL (9.5-12.2); NRBC Per 100 WBC 0 X 10*3/uL (0.00-0.01); Platelet Count 228 X 10*3/uL (140-440); RBC 3.98 X 10*6/uL (4.40-5.60); WBC 9.97 X 10*3/uL (4.50-10.00)
[2024-03-11 09:17] LABS: Basophils # (A) 0.03 X 10*3/uL (0.00-0.10); Basophils % (A) 0.3 %; Eosinophils # (A) 0.01 X 10*3/uL (0.04-0.35); Eosinophils % (A) 0.1 %; Lymphocytes # (A) 1.33 X 10*3/uL (0.90-5.00); Lymphocytes % (A) 13.3 %; Monocytes # (A) 1.69 X 10*3/uL (0.20-1.00); Neutrophils # (A) 6.88 X 10*3/uL (1.80-7.70); RBC Morphology Normal (Normal)
--- NOTE | 2024-03-11 09:55 | P.DS ---
Providers Expected date of discharge: 03/11/24 Attending physician: Vik Bernardo Consults: 03/10/24 08:43 Consult Physician Routine Consulting Provider: Gretel Cardenas Consult Reason/Comments: medical management Do you want consulting provider notified?: Yes Primary care physician: Carlos Akhtar - Discharge Diagnosis(es) (1) Osteoarthritis of left hip Current Visit: Yes Status: Acute (2) S/P total left hip arthroplasty Current Visit: Yes Status: Acute Hospital Course: This is a 68-year-old male with known history of degenerative arthritis of the left hip. The patient presented for evaluation as an outpatient. After discussion and consideration patient elects to proceed with total hip arthroplasty. The patient is seen preoperatively by Dr. Bernardo and medically cleared for surgery by their primary care physician. Patient is admitted to [facility] on 03/10/2024 for total hip arthroplasty. The procedure is performed without complication or sequelae. The patient is doing well postoperatively. Labs and vital signs are stable on day of discharge. On day of discharge patient's hip incision is healing well. There is minimal erythema. There is no drainage noted at this time. There is minimal soft tissue swelling to the hip and thigh. Patient has full foot and ankle motion without difficulty or pain. Calf is soft and nontender to palpation. Neurovascular status to the left lower extremity is intact. Patient is discharged home in good condition. Please see med rec for accurate list of home medications. Plan - Discharge Summary Discharge Rx Participant: Yes New Discharge Prescriptions: New Sennosides [Senokot] 2 tab PO DAILY PRN #60 tablet PRN Reason: Constipation HYDROcodone/APAP 7.5-325MG [[place] 7.5-325] 1 - 2 tab PO Q6H PRN #32 tab PRN Reason: Pain Continue HYDROcodone/APAP 7.5-325MG [[place] 7.5-325] 1 - 2 tab PO TID PRN PRN Reason: Pain Rivaroxaban [Xarelto] 20 mg PO HS Ezetimibe/Simvastatin [Vytorin 10-40 mg Tablet] 1 tab PO HS Famotidine [Pepcid] 20 mg PO DAILY Furosemide [Lasix] 20 mg PO QAM Celecoxib [CeleBREX] 200 mg PO BID Hypromellose [Artificial Tears] 1 drop BOTH EYES DAILY PRN PRN Reason: Dry Eye(S) Magnesium Chloride [Slow-Mag] 64 mg PO HS lisinopriL [Zestril] 10 mg PO BID Dofetilide [Tikosyn] 125 mcg PO BID Psyllium Husk (with Sugar) [Metamucil Powder] 1 dose PO BID PRN PRN Reason: Constipation Cyclobenzaprine [Flexeril] 10 mg PO TID PRN #90 tab PRN Reason: Spasms Acetaminophen [Tylenol Arthritis] 650 mg PO BID Vit C/E/Zn/Coppr/Lutein/Zeaxan [Preservision Areds 2 Softgel] 2 each PO BID Enalapril [Vasotec] 10 mg PO BID Metoprolol Tartrate [Lopressor] 12.5 mg PO BID Discharge Medication List Celecoxib [CeleBREX] 200 mg PO BID 01/24/15 [History] Ezetimibe/Simvastatin [Vytorin 10-40 mg Tablet] 1 tab PO HS 01/24/15 [History] Famotidine [Pepcid] 20 mg PO DAILY 01/24/15 [History] Furosemide [Lasix] 20 mg PO QAM 01/24/15 [History] HYDROcodone/APAP 7.5-325MG [[place] 7.5-325] 1 - 2 tab PO TID PRN 01/24/15 [History] Rivaroxaban [Xarelto] 20 mg PO HS 01/24/15 [History] Hypromellose [Artificial Tears] 1 drop BOTH EYES DAILY PRN 03/21/15 [History] Magnesium Chloride [Slow-Mag] 64 mg PO HS 01/09/16 [History] lisinopriL [Zestril] 10 mg PO BID 03/31/19 [History] Dofetilide [Tikosyn] 125 mcg PO BID 05/13/19 [History] Psyllium Husk (with Sugar) [Metamucil Powder] 1 dose PO BID PRN 08/18/20 [History] Vit C/E/Zn/Coppr/Lutein/Zeaxan [Preservision Areds 2 Softgel] 2 each PO BID 03/10/21 [History] Cyclobenzaprine [Flexeril] 10 mg PO TID PRN #90 tab 03/17/21 [Rx] Acetaminophen [Tylenol Arthritis] 650 mg PO BID 03/04/24 [History] Enalapril [Vasotec] 10 mg PO BID 03/04/24 [History] Metoprolol Tartrate [Lopressor] 12.5 mg PO BID 03/04/24 [History] HYDROcodone/APAP 7.5-325MG [[place] 7.5-325] 1 - 2 tab PO Q6H PRN #32 tab 03/10/24 [Rx] Sennosides [Senokot] 2 tab PO DAILY PRN #60 tablet 03/10/24 [Rx] Follow up Appointment(s)/Referral(s): [facility] - 1-2 Days ([facility] will call you to schedule your in home physical therapy visits.) Vik Bernardo DO [Doctor of Osteopathic Medicine] - 2 Weeks Activity/Diet/Wound Care/Special Instructions: Weightbearing as tolerated with walker. Leave dressing intact. Dressing may be removed by home care nurse or by patient in 7 days. Then change dressing twice daily until follow up. May shower with initial dressing intact and after removal. If dressing become saturated, please remove. Please resume Xarelto. Recommend use of compression stockings daily until follow up to help prevent swelling and blood clots. May remove at night before sleeping. Please follow-up with [facility] in 2 weeks and call with any questions or concerns, . Discharge Disposition: HOME WITH HOME HEALTH SERVICES
--- NOTE | 2024-03-11 11:18 | FL ---
Fluoroscopy History: Left Hip-Ant Left Hip-Ant 40sec fluoro time 4.3672 DAP
--- NOTE | 2024-03-11 13:02 | P.PN ---
Subjective Progress Note Date: 03/11/24 68 year old M with PMH of HTN, AFib, GERD, HLD presents to [facility] for elective surgery. He underwent left total hip arthroplasty with Dr. Bernardo. [facility] has been consulted for medical management of this patient. 03/10 Patient reports numbness along his groin and waist bilaterally. He reports leaking urine. No bowel movement. Not passing gas. No other complaints. Postassi um is 5. 03/11 Patient was seen and examined. Numbness resolved. Urinating freely. No concerns. Looking forward to going home. CBC Hg 11.6 Hct 36. BMP Na 133, BUN 27, glu 147. General: non toxic, no distress, appears at stated age Derm: warm, dry Head: atraumatic, normocephalic, symmetric Eyes: EOMI, no lid lag, anicteric sclera Mouth: no lip lesion, mucus membranes moist Cardiovascular: good distal perfusion in all 4 extremities Lungs: breathing comfortably, no accessory muscle use Ext: no gross muscle atrophy, no edema, no contractures Psych: Alert, oriented, appropriate affect Based on my assessment of this patient, this patient meets a high complexity level of care. Patient has an chronic diagnosis of HTN, AFib, GERD, HLD that poses a threat to life or bodily function. Hypertension: Enalapril 10 mg PO BID. Metoprolol 12.5 mg PO BID. Atrial fibrillation: Metoprolol as above. Tikosyn 125 mcg PO BID. Xarelto 20 mg PO QD for AC. GERD: Pepcid 20 mg PO QD. Dyslipidemia: Vytorin 10-40 mg PO QHS. CODE STATUS: FULL CODE. DVT Prophylaxis: Xarelto GI Prophylaxis: Pepcid Designated medical POA if patient is not able to make medical decisions for themselves: I have reviewed the following websphere consultant notes: Ortho note I have reviewed the results of the following tests: CBC, BMP I have ordered the following tests: I have discussed the care of this patient with the following independent historian: . RN I have independently interpreted the following test below: I have discussed the management of this patient with the following physician: Objective - Vital Signs Vital signs: Vital Signs Temp 98.3 F 03/11/24 07:15 Pulse 84 03/11/24 07:15 Resp 17 04/24/24 07:15 BP 132/74 03/11/24 07:15 Pulse Ox 96 03/11/24 07:15 FiO2 Intake & Output 03/10/24 03/11/24 03/11/24 18:59 06:59 18:59 Intake Total 1851 Output Total 250 Balance 1601 Weight 109 kg Intake: IV 1851 Output: Estimated Blood Loss 250 Other: Voiding Method Toilet # Voids 1 5 - Labs CBC & Chem 7: 03/11/24 05:23 03/11/24 05:23 Labs: Abnormal Lab Results - Last 24 Hours (Table) 03/11/24 03/11/24 Range/Units 05:23 05:23 RBC 3.98 L (4.40-5.60) X 10*6/uL Hgb 11.6 L (13.0-17.0) g/dL Hct 36.0 L (39.6-50.0) % Monocytes # 1.69 H (0.20-1.00) X 10*3/uL Eosinophils # 0.01 L (0.04-0.35) X 10*3/uL Sodium 133 L (137-145) mmol/L BUN 27 H (9-20) mg/dL Glucose 149 H (74-99) mg/dL
[2024-03-11] MEDS ORDERED: RIVAROXABAN 20 MG TAB PO SCH (17:30)
[2024-03-11] MEDS ORDERED: MELOXICAM 7.5 MG TAB PO SCH (21:00)
== END 2024-03-11 13:32 | disposition home health service (06) ==
LOC: OR 07:08 → 4SSUR 10:57 → OR 03-11 13:32
PROVIDERS: ATTEND Orthopaedic Surgery
DX: M16.12 Unilateral primary osteoarthritis, left hip (principal); M25.752 Osteophyte, left hip; G89.18 Other acute postprocedural pain; I10 Essential (primary) hypertension; E78.5 Hyperlipidemia, unspecified; Z82.49 Family history of ischemic heart disease and other diseases of the circulatory system; Z79.899 Other long term (current) drug therapy
CPT/HCPCS: 97161; 97166; 64447; 80048; 84132; 85025; 73501; 27130; C1776; J2250; J1100; J0690 ×3; J2405 ×2; J3010; J2795; J1170

== ENCOUNTER 2024-05-25 20:59 | Emergency (ER) | payer MEDICARE ==
--- NOTE | 2024-05-25 21:04 | ED ---
General Adult HPI - General Source: RN notes reviewed <Bharat Paez - Last Filed: 05/25/24 21:04> <Benson Liang - Last Filed: 05/25/24 23:30> - General Stated complaint: L Hip pain Time Seen by Provider: 05/25/24 20:59 - History of Present Illness Initial comments: Quick note 68-year-old male with prior hardware of his left hip by Dr. Bernardo, presenting to the ED with a chief complaint of left hip pain. Patient states he was kneeling down when all of a sudden heard a pop in his left hip and has since been unable to bear weight in his left lower extremity. No other injuries at this time. (Bharat Paez) - Related Data Home Medications Medication Instructions Recorded Confirmed Celecoxib [CeleBREX] 200 mg PO BID 01/24/15 03/10/24 Ezetimibe/Simvastatin [Vytorin 1 tab PO HS 01/24/15 03/10/24 10-40 mg Tablet] Famotidine [Pepcid] 20 mg PO DAILY 01/24/15 03/10/24 Furosemide [Lasix] 20 mg PO QAM 01/24/15 03/10/24 HYDROcodone/APAP 7.5-325MG [[place] 1 - 2 tab PO TID PRN 01/24/15 03/10/24 7.5-325] Rivaroxaban [Xarelto] 20 mg PO HS 01/24/15 03/10/24 Hypromellose [Artificial Tears] 1 drop BOTH EYES DAILY PRN 03/21/15 03/10/24 Magnesium Chloride [Slow-Mag] 64 mg PO HS 01/09/16 03/10/24 lisinopriL [Zestril] 10 mg PO BID 03/31/19 03/10/24 Dofetilide [Tikosyn] 125 mcg PO BID 05/13/19 03/10/24 Psyllium Husk (with Sugar) 1 dose PO BID PRN 08/18/20 03/10/24 [Metamucil Powder] Vit C/E/Zn/Coppr/Lutein/Zeaxan 2 each PO BID 03/10/21 03/10/24 [Preservision Areds 2 Softgel] Acetaminophen [Tylenol Arthritis] 650 mg PO BID 03/04/24 03/10/24 Enalapril [Vasotec] 10 mg PO BID 03/04/24 03/10/24 Metoprolol Tartrate [Lopressor] 12.5 mg PO BID 03/04/24 03/10/24 Previous Rx's Medication Instructions Recorded Cyclobenzaprine [Flexeril] 10 mg PO TID PRN #90 tab 03/17/21 HYDROcodone/APAP 7.5-325MG [[place] 1 - 2 tab PO Q6H PRN #32 tab 03/10/24 7.5-325] Sennosides [Senokot] 2 tab PO DAILY PRN #60 tablet 03/10/24 Allergies Allergy/AdvReac Type Severity Reaction Status Date / Time amiodarone AdvReac muscle Verified 03/04/24 13:13 tremors flecainide AdvReac bradycardia Verified 03/04/24 13:13 Review of Systems ROS Other: All systems not noted in ROS Statement are negative. <Bharat Paez - Last Filed: 05/25/24 21:04> ROS Other: All systems not noted in ROS Statement are negative. <Benson Liang - Last Filed: 05/25/24 23:30> ROS Statement: Those systems with pertinent positive or pertinent negative responses have been documented in the HPI. Past Medical History Past Medical History: Atrial Fibrillation, Cancer, CVA/TIA, Hypertension, Osteoarthritis (OA), Prostate Disorder, Sleep Apnea/CPAP/BIPAP Additional Past Medical History / Comment(s): SEE H & P FOR CARDIOVASCULAR NOTES PROVIDED BY DR. BATES. MRI SHOWED MINI STROKE HAS SEVERE HEARING LOSS LT EAR 2012,USE CPAP,PROSTATE CA-NO RAD OR CHEM. rt arm does not straighten out History of Any Multi-Drug Resistant Organisms: None Reported Past Surgical History: Back Surgery, Cardiac Ablation, Hernia Repair, Orthopedic Surgery, Prostate Surgery Additional Past Surgical History / Comment(s): CERVICAL -FUSION C-3-C-7,RIGHT ELBOW, CARPAL TUNNEL, INGUINAL HERNIA , AND LOWER BACK FUSION. CARDIOVERSION IN JANUARY 2015. 06-28-15 CARDIAC ABLATION AND CARDIOVERSION(FOR AFIB), CARDIOVERSION,PROSTATECOMY 2007 Past Anesthesia/Blood Transfusion Reactions: Postoperative Nausea & Vomiting (PONV) Additional Past Anesthesia/Blood Transfusion Reaction / Comment(s): SLOW TO AWAKEN X1. SISTER HAS PONV. Past Psychological History: No Psychological Hx Reported Additional Psychological History / Comment(s): PT IS RETIRED. Smoking Status: Never smoker Past Alcohol Use History: None Reported Past Drug Use History: None Reported - Past Family History Father Family Medical History: Cancer, Myocardial Infarction ([place]) Additional Family Medical History / Comment(s): LUNG CANCER, SMOKED SINCE AGE 13. Mother Family Medical History: Hypertension Additional Family Medical History / Comment(s): ENLARGED HEART. <Bharat Paez - Last Filed: 05/25/24 21:04> General Exam <Bharat Paez - Last Filed: 05/25/24 21:04> - General Exam Comments Initial Comments: Visual Physical Exam Vital signs reviewed General: Well-appearing, nontoxic, no acute distress. Head: Normocephalic, atraumatic Eyes: PERRLA, EOMI ENT: Airway patent Chest: Nonlabored breathing Skin: No visual rash, normal skin tone Neuro: Alert and oriented 3 (Bharat Paez) Course Vital Signs 05/25/24 05/25/24 05/25/24 22:06 22:40 22:45 Temperature 98.1 F Pulse Rate 97 69 81 Respiratory 18 16 18 Rate Blood Pressure 156/108 164/108 167/109 O2 Sat by Pulse 97 97 97 Oximetry 05/25/24 05/25/24 05/25/24 22:50 23:05 23:20 Temperature Pulse Rate 92 92 70 Respiratory 16 16 16 Rate Blood Pressure 163/110 151/93 143/88 O2 Sat by Pulse 95 97 97 Oximetry Procedures - Orthopedic Joint Reduction Joint #1 Consent Obtained: written consent Side: left Joint Reduction Location: hip Analgesia: procedural sedation Technique Used: traction/counter-traction Post-Reduction Neuro Exam: intact Post-Reduction Vascular Exam: intact Post Reduction X-Ray Obtained: Yes Post Reduction X-Ray Results: reduced Splint Applied: Yes Patient Tolerated Procedure: well - Procedural Sedation *Procedural Sedation Start Time: 22:40 *Procedural Sedation Stop Time: 23:15 *Risks,benefits, and alternative therapies discussed?: Yes *Patient indicates understanding of risk/benefit discussion?: Yes *Indications: fracture/dislocation reduction *Previous Adverse Reaction to Anesthesia/Sedation?: No *ASA Class: II *Mallampati Airway Score: 3 Preparation: orthotist/prosthetist applied, pulse oximeter, capnometry used, supplemental O2 applied, suction/airway equipment at bedside, IV secured Ketamine: IV Ketamine Dose: 53 IV Propofol Dose (mgs): 60 Complications: none Interventions: airway repositioned Patient Tolerated Procedure: well <Benson Liang - Last Filed: 05/25/24 23:30> Medical Decision Making <Bharat Paez - Last Filed: 05/25/24 21:04> <Benson Liang - Last Filed: 05/25/24 23:30> - Medical Decision Making Quicknote portion performed. Signed Bharat Paez PA-C (Bharat Paez) Was pt. sent in by a medical professional or institution (VENKAT Garcia, CLINICAL DIRECTOR, urgent care, hospital, or [facility]...) When possible be specific @ -No Did you speak to anyone other than the patient for history (EMS, parent, family, police, friend...)? What history was obtained from this source @ -No Did you review nursing and triage notes (agree or disagree)? Why? @ -I reviewed and agree with nursing and triage notes Were old charts reviewed (outside hosp., previous admission, EMS record, old EKG, old radiological studies, urgent care reports/EKG's, [facility] records)? Report findings @ -No old charts were reviewed Differential Musculoskeletal Muscular strain, contusion, ligament sprain, fracture, arthritis, septic arthritis, bursitis, cellulitis, muscle spasm, nerve compression, DVT, arterial occlusion, herpes zoster, electrolyte abnormality, tumor.... This is not meant to be in all inclusive list EKG interpreted by me (3pts min.). @ -As above X-rays interpreted by me (1pt min.). @Initial x-ray of the left hip and pelvis shows dislocation of the left hip, postreduction film shows reduction. CT interpreted by me (1pt min.). @ -None done U/S interpreted by me (1pt. min.). @ -None done What testing was considered but not performed or refused? (CT, X-rays, U/S, labs)? Why? @ -None What meds were considered but not given or refused? Why? @ -None Did you discuss the management of the patient with other professionals (professionals i.e. , PA, CLINICAL DIRECTOR, lab, RT, psych nurse, social media marketer, wet mix operator, teacher, liaison officer, high risk case manager)? Give summary @ -No Was smoking cessation discussed for >3mins.? @ -No Was critical care preformed (if so, how long)? @ -No Were there social determinants of health that impacted care today? How? (Homelessness, low income, unemployed, alcoholism, drug addiction, transportation, low edu. Level, literacy, decrease access to med. care, penitentiary, rehab)? @ -No Was there de-escalation of care discussed even if they declined (Discuss DNR or withdrawal of care, Hospice)? DNR status @ -No What co-morbidities impacted this encounter? (DM, HTN, Smoking, COPD, CAD, Cancer, CVA, ARF, Chemo, Hep., AIDS, mental health diagnosis, sleep apnea, morbid obesity)? @AFibrillation, previous hip replacement Was patient admitted / discharged? Hospital course, mention meds given and route, prescriptions, significant lab abnormalities, going to OR and other pertinent info. @ -68-year-old male with left hip dislocation which occurred approximately 6 hours prior to arrival. This occurred when the patient was bending over. Patient came by private vehicle. X-ray reveals a left hip dislocation. The ris ks and benefits are discussed regarding sedation and reduction and the patient is agreeable. Patient received procedural sedation with ketamine and propofol and hip is reduced. He is placed in a knee immobilizer. He will follow-up with his orthopedic surgeon Dr. Bernardo. Undiagnosed new problem with uncertain prognosis? @ -No Drug Therapy requiring intensive monitoring for toxicity (Heparin, Nitro, Insulin, Cardizem)? @ -No Were any procedures done? @Yes, procedural sedation, hip reduction Diagnosis/symptom? @ -Left hip dislocation Acute, or Chronic, or Acute on Chronic? @Acute Uncomplicated (without systemic symptoms) or Complicated (systemic symptoms)? @ -Default Side effects of treatment? @ -No Exacerbation, Progression, or Severe Exacerbation? @ -No Poses a threat to life or bodily function? How? (Chest pain, [place], [place], pneumonia, PE, COPD, DKA, ARF, appy, cholecystitis, CVA, Diverticulitis, Homicidal, Suicidal, threat to staff... and all critical care pts) @ -No (Benson Liang) Disposition <Bharat Paez - Last Filed: 05/25/24 21:04> Is patient prescribed a controlled substance at d/c from ED?: No Time of Disposition: 23:40 <Benson Liang - Last Filed: 05/25/24 23:30> Clinical Impression: Hip dislocation, left Disposition: HOME SELF-CARE Condition: Fair Instructions (If sedation given, give patient instructions): Moderate Sedation (ED), Hip Dislocation (ED) Referrals: Rui Akhtar MD [Primary Care Provider] - 1-2 days Vik Bernardo DO [Doctor of Osteopathic Medicine] - 1-2 days
[2024-05-25] MEDS: KETOROLAC 15 MG/ML 1 ML VIAL IVP STA (22:19)
[2024-05-25] MEDS: SODIUM CHLORIDE 0.9% 1,000 ML IV ONE (22:20)
[2024-05-25] MEDS: PROPOFOL 10 MG/ML 20 ML VIAL IV ONE ×2 (22:41→22:58)
[2024-05-25] MEDS: KETAMINE 10 MG/ML 20 ML VIAL IV ONE (22:41)
--- NOTE | 2024-05-25 22:46 | XR ---
EXAMINATION TYPE: XR Hip LT and AP Pelvis DATE OF EXAM: 05/25/2024 COMPARISON: None HISTORY: Hip dislocation, pain TECHNIQUE: AP pelvis and two-view left hip FINDINGS: Bilateral hip prostheses are present. The left femoral head prosthesis is dislocated from the left acetabular component. No acute osseous fractures are evident. Multiple surgical clips are within the pelvis dated fixation rods and pedicle screws within the lower lumbar spine IMPRESSION: 1. Dislocation of the femoral prosthesis from the acetabular component at the left hip.
[2024-05-25 22:55] VITALS: RESP 16
[2024-05-26] VITALS: BP 136/77; PULSE 74; TEMP 98.2
--- NOTE | 2024-05-26 02:58 | XR ---
EXAM: XR Left Hip With Pelvis When Performed, 1 View CLINICAL HISTORY: ITS.REASON XR Reason: post reduction TECHNIQUE: Frontal view of the left hip with pelvis when performed. COMPARISON: No relevant prior studies available. FINDINGS: Bones/joints: LEFT hip arthroplasty. No periprosthetic fracture, loosening, or subluxation. Soft tissues: Surgical clips in the pelvis. IMPRESSION: No periprosthetic fracture, loosening, or subluxation.
== END 2024-05-26 | disposition home or self-care (01) ==
LOC: EC 20:59
DX: S73.005A Unspecified dislocation of left hip, initial encounter (principal); Z88.8 Allergy status to other drugs, medicaments and biological substances; Z86.73 Personal history of transient ischemic attack (TIA), and cerebral infarction without residual deficits; W10.9XXA Fall (on) (from) unspecified stairs and steps, initial encounter
CPT/HCPCS: 73501; 73502; 99283; 96374; 96375; 96361; 99152; 27266; L1830; J1885; J2704

== ENCOUNTER → 2024-08-28 | Outpatient (CLI) | payer MEDICARE | END | disposition home or self-care (01) | LOC: LABWHC1 16:16 | PROVIDERS: ATTEND Nurse Practitioner Adult Health | DX: Z53.9 Procedure and treatment not carried out, unspecified reason (principal) | CPT/HCPCS: 36415; 87070 ==

== ENCOUNTER → 2024-08-31 | Outpatient (CLI) | payer MEDICARE ==
[2024-08-31 16:19] LABS: ALT 19 U/L (10-49); AST 22 U/L (14-35); Albumin 4.4 g/dL (3.8-4.9); Albumin/Globulin Ratio 1.52 Ratio (1.60-3.17); Alkaline Phosphatase 76 U/L (41-126); Blood Urea Nitrogen 22.7 mg/dL (9.0-27.0); Calcium 9.5 mg/dL (8.7-10.3); Carbon Dioxide 22.1 mmol/L (21.6-31.8); Chloride 105 mmol/L (96-109); Chol/HDL Ratio 3.28 Ratio; Globulin 2.9 g/dL (1.6-3.3); Glucose 118 mg/dL (70-110); LDL Cholesterol,Calculated 65.2 mg/dL (0.0-131.0); Magnesium 2.2 mg/dL (1.5-2.4); Potassium 5.8 mmol/L (3.5-5.5); Sodium 139 mmol/L (135-145); Total Bilirubin 0.5 mg/dL (0.3-1.2); Total Protein 7.3 g/dL (6.2-8.2)
== END | disposition home or self-care (01) ==
LOC: LABWHC1 10:18
PROVIDERS: ATTEND Nurse Practitioner Adult Health
CPT/HCPCS: 36415; 80053; 80061; 83735; 84443

== ENCOUNTER → 2024-09-21 | Outpatient (CLI) | payer MEDICARE ==
[2024-09-21 15:50] LABS: INR 1.2 (<1.2); Partial Thromboplastin Time 27.9 sec (22.0-30.0); Prothrombin Time 12.7 sec (10.0-12.5)
[2024-09-21 16:09] LABS: Appearance,Urine Clear (Clear); Bilirubin,Urine Negative (Negative); Blood,Urine Negative (Negative); Color,Urine Colorless; Glucose,Urine (UA) Negative (Negative); Ketones,Urine Negative (Negative); Leukocyte Esterase,Urine Negative (Negative); Nitrite,Urine Negative (Negative); PH, Urine 5.5 (5.0-8.0); Protein,Urine Trace (Negative); Specific Gravity,Urine 1.012 (1.001-1.035); Urobilinogen,Urine <2.0 mg/dL (<2.0)
[2024-09-21 20:07] LABS: HCT 35.9 % (39.6-50.0); HGB 11.4 g/dL (13.0-17.0); MCH 30.2 pg (27.0-32.0); MCHC 31.8 g/dL (32.0-37.0); Mean Platelet Volume 10.3 FL (9.5-12.2); NRBC Per 100 WBC 0 X 10*3/uL (0.00-0.01); Platelet Count 178 X 10*3/uL (140-440); RBC 3.78 X 10*6/uL (4.40-5.60); RDW 15.1 % (11.5-14.5)
[2024-09-21 22:00] LABS: ALT 18 U/L (10-49); AST 20 U/L (14-35); Albumin 4.4 g/dL (3.8-4.9); Albumin/Globulin Ratio 1.63 Ratio (1.60-3.17); Alkaline Phosphatase 72 U/L (41-126); BUN/Creat Ratio 23.27 Ratio (12.00-20.00); Blood Urea Nitrogen 25.6 mg/dL (9.0-27.0); Calcium 9.3 mg/dL (8.7-10.3); Carbon Dioxide 22.7 mmol/L (21.6-31.8); Chloride 106 mmol/L (96-109); Globulin 2.7 g/dL (1.6-3.3); Glucose 99 mg/dL (70-110); Potassium 5.4 mmol/L (3.5-5.5); Sodium 140 mmol/L (135-145); Total Bilirubin 0.6 mg/dL (0.3-1.2); Total Protein 7.1 g/dL (6.2-8.2)
== END | disposition home or self-care (01) ==
LOC: LABPAT 14:31
PROVIDERS: ATTEND Orthopaedic Surgery
DX: Z01.812 Encounter for preprocedural laboratory examination (principal); Z22.322 Carrier or suspected carrier of Methicillin resistant Staphylococcus aureus
CPT/HCPCS: 80053; 81003; 83036; 85027; 85610; 85730; 86850; 86900; 86901; 87070

== ENCOUNTER 2024-09-29 10:55 | Inpatient (IN) | payer MEDICARE ==
[~2024-09-29 10:55] MED LIST changes: +GABAPENTIN 300 MG CAP PO PRN; -HYDROmorphone 0.5 MG/0.5 ML SYRINGE IVP PRN; -LIDOCAINE 1% (10MG/ML) FOR IV START INTRADERMA PRN; +MELOXICAM 7.5 MG TAB PO PRN; -MIDAZOLAM 2 MG/2 ML VIAL IV PRN
[2024-10-30 12:24] VITALS: BMI 33.0
[2024-11-03] MEDS ORDERED: TRANEXAMIC 1,000 MG/100ML-NACL 1,000 MG in SALINE 1 100ML.BAG IVPB PRN (05:00)
[2024-11-03] MEDS ORDERED: ACETAMINOPHEN TAB 500 MG TAB PO PRN (05:00)
[2024-11-03] MEDS ORDERED: MELOXICAM 7.5 MG TAB PO PRN (05:00)
[2024-11-03] MEDS ORDERED: fentaNYL (PF) 50 MCG/ML 2 ML AMP IVP PRN (09:38)
[2024-11-03] MEDS: IV FLUID CONTINUATION 1,000 ML IV ONE ×2 (10:21→13:13)
[2024-11-03] MEDS: GABAPENTIN 300 MG CAP PO PRN (10:29)
[2024-11-03] MEDS: ONDANSETRON 4 MG/2 ML VIAL IVP ONE (10:29)
[2024-11-03] MEDS: DEXAMETHASONE SOD PHOSPHATE 4 MG/ML 1 ML VIAL IV ONE (10:30)
[2024-11-03] MEDS: MIDAZOLAM 2 MG/2 ML VIAL IV PRN (10:40)
[2024-11-03] MEDS ORDERED: NALOXONE 0.4 MG/ML 1 ML VIAL IV PRN (10:49)
[2024-11-03] MEDS ORDERED: HYDROmorphone 0.5 MG/0.5 ML SYRINGE IVP PRN ×3 (10:49)
[2024-11-03] MEDS ORDERED: MAGNESIUM HYDROXIDE 2,400 MG/30 ML CUP PO PRN (10:49)
[2024-11-03] MEDS ORDERED: ONDANSETRON 4 MG/2 ML VIAL IVP PRN (10:49)
[2024-11-03 10:51] LABS: INR 1.2 (<1.2)
[2024-11-03] MEDS ORDERED: HYDROcodone/APAP 7.5-325MG 1 EACH TAB PO PRN (10:51)
--- NOTE | 2024-11-03 10:52 | P.ANPRN ---
Procedure Note - Anesthesia - Nerve Block Performed Left Rocky Single Time Out Performed: Yes Date of Procedure: 11/03/24 Procedure Start Time: 10:49 Procedure Stop Time: 10:54 Location of Patient: PreOp Indication: Acute Post-Operative Pain, Analgesia, Requested by Surgeon Sedation Type: Sedate with meaningful contact maintained Preparation: Sterile Prep Position: Supine Catheter: None Needle Types: Pajunk Needle Gauge: 21 Ultrasound used to visualize needle placement: Yes Ultrasound used to observe medication spread: Yes Injectate: 0.5% Ropivacaine (see comment for volume) ([id number]) Blood Aspirated: No Pain Paresthesia on Injection Noted: No Resistance on Injection: Normal Image Stored and Saved: Yes Events: Uneventful and Well Tolerated
[2024-11-03] MEDS: LACTATED RINGERS 1,000 ML IV SCH (10:57)
[2024-11-03] MEDS ORDERED: LIDOCAINE 1% INJ 10MG/ML (20 ML MDV) ONE (11:00)
[2024-11-03] MEDS ORDERED: DEXAMETHASONE SOD PHOSPHATE 4 MG/ML 1 ML VIAL ONE (11:00)
[2024-11-03] MEDS ORDERED: fentaNYL (PF) 50 MCG/ML 2 ML AMP ONE (11:00)
[2024-11-03] MEDS ORDERED: SUCCINYLCHOLINE CHLORIDE 200 MG/10 ML VIAL IV ONE (11:00)
[2024-11-03] MEDS ORDERED: ePHEDrine 50 MG/ML 1 ML VIAL ONE (11:00)
[2024-11-03] MEDS ORDERED: PROPOFOL 10 MG/ML 20 ML VIAL IV ONE (11:00)
[2024-11-03] MEDS ORDERED: ROCURONIUM 10 MG/ML (5 ML VIAL) IV ONE (11:00)
[2024-11-03] MEDS ORDERED: ROPIVACAINE 5 MG/ML 30 ML VIAL ONE (11:00)
[2024-11-03] MEDS ORDERED: TRANEXAMIC 1,000 MG/100ML-NACL PREMIX BAG ONE (11:00)
[2024-11-03] MEDS ORDERED: NEOSTIGMINE 1 MG/ML 10 ML VIAL ONE (11:00)
[2024-11-03] MEDS ORDERED: GLYCOPYRROLATE 0.2 MG/ML 2 ML VIAL ONE (11:00)
[2024-11-03] MEDS: ceFAZolin 1,000 MG in SODIUM CHLORIDE 0.9% 1,000 ML IRRIGATION ONE (11:01)
[2024-11-03] MEDS: ROPIVACAINE 5 MG/ML 30 ML VIAL MISCELLANE ONE ×2 (11:03→12:15)
--- NOTE | 2024-11-03 12:26 | P.OP ---
Date of Procedure: 11/03/24 Preoperative Diagnosis: Recurrent dislocation left total hip arthroplasty Postoperative Diagnosis: Recurrent dislocation left total hip arthroplasty Procedure(s) Performed: Revision left total hip arthroplasty with conversion to a dual mobility liner Implants: Pimentel & Nephew OR30, 40 mm ID, 52 mm OD, Oxinium dual mobility liner Pimentel & Nephew OR30, 28 mm ID, 40 mm OD, XLPE Dual mobility insert Pimentel & Nephew Oxinium femoral head 28 m, +4 All components were press-fit. The articulation is Oxinium on polyethylene. Anesthesia: spinal Surgeon: Vik Bernardo Returned Item Clerk #1: Esther Almanza Estimated Blood Loss (ml): 350 Pathology: none sent Condition: stable Disposition: PACU Indications for Procedure: This is a 69-year-old gentleman that has had a left total hip arthroplasty with a direct anterior approach on 03/10/2024. He is had multiple dislocations of his left hip requiring closed reductions. Due to the instability of his left hip. I've recommended a revision of his left total hip arthroplasty with conversion to mobility liner. After failure of conservative treatment we discussed the surgical and nonsurgical treatment options at length. Patient wishes to proceed with a total hip arthroplasty with a direct anterior approach. Complications specific to this procedure were discussed at length, including but not limited to infection, leg length discrepancy, dislocation, nerve injury, and fracture. Covid-19 was also discussed at length with the patient, and they are aware of the current policies and procedures. The patient was given the option of delaying surgery, but they elect to proceed knowing these risks. Patient is aware of all these complications and informed consent was obtained Operative Findings: The operative findings are consistent with recurrent dislocation left total hip arthroplasty. The femoral and acetabular components are well fixed into the bone. Description of Procedure: The patient was seen and evaluated in the preoperative area and the consent was reviewed. The operative site was marked with a skin marker. The patient verified the procedure and operative site. A LUANA block was placed by anesthesia in the preoperative area. The patient was then brought to the operating room and given preoperative antibiotics intravenously. 1 g of Tranexamic acid was also given intravenously. A spinal anesthetic was administered by the anesthesia department. The patient was then placed on the [place] table with the bony prominences well-padded. The hip area was then prepped with a ChloraPrep solution and draped in the usual sterile fashion. A universal timeout was then performed, which confirmed the patient's name, surgical site, ALLERGIES, and procedure being performed on the consent. Next the prior incision site was used. The skin and subcutaneous tissues were sharply incised. Incision was carefully dissected down to the fascia overlying the tensor fascia bala muscle. This fascia was then incised in line with the muscle fibers. Care was taken to stay laterally in order to avoid injuring the lateral femoral cutaneous nerve. Next, using blunt finger dissection, the tensor fascia bala muscle was dissected off its investing fascia. The muscle was then carefully retracted laterally with a cobra retractor over the lateral neck of the femur. Next, the circumflex vessels were identified and cauterized using the Aquamantis device. The anterior hip capsule was then exposed. The capsule was then opened and an inverted T fashion. The retractors were then placed intracapsularly. The retractors were maintained intracapsular throughout the procedure. The proximal femur was then visualized. Fluoroscopic x-rays were then taken in order to evaluate the preoperative leg lengths. A small amount of traction was placed on the leg. The left hip was then dislocated and the femoral head was then removed without difficulty. The acetabulum was then exposed. Upon closer inspection, there is large amount of scar tissue located within the acetabulum. This may have been the reason why the patient was dislocated, recurrently due to the interposition of soft tissue within the femoral acetabular joint. The scar tissue was then excised. The acetabular liner was then removed without difficulty. The femoral stem and acetabular components were inspected and found to be well fixed to the bone. The dual mobility liner was inserted into the acetabular component. Trials were then placed with an increase neck length from neutral to +4 mm. The increase neck length was done in order to increase the stability of the hip. The hip was then reduced. Leg lengths were checked and found to be equal. Hip was taken through a range of motion and found to be stable. Hip was then dislocated and the trials were then removed. Final implants were placed. The hip was again reduced. Final fluoroscopic x-rays were then taken which showed equal leg lengths and also the hip was taken through range of motion and found to be stable. The hip was then copiously irrigated with antibiotic solution with pulsatile lavage. The hip was then irrigated with Irrisept solution. The soft tissues were then injected with a ropivacaine solution. A second dose of 1 g of Tranexamic acid was also given intravenously. The fascia was then closed with 2-0 strata fix suture. The subcutaneous tissue was closed with 3-0 Vicryl. The subcuticular tissue was closed with 3-0 moncryl suture. The skin was then closed with Exofin skin glue. After the glue and dried, and Optifoam silver impregnated dressing was applied. The patient was then transferred to the recovery room in stable condition. The tmd teacher assistant VENKAT Mijares was required due to the complexity of surgery, and the need for skilled podiatric assistant for positioning, draping, exposure, retraction, and closure of the wound.
--- NOTE | 2024-11-03 12:51 | FL ---
EXAMINATION TYPE: FL guidance operating room, XR Hip Limited LT DATE OF EXAM: 11/03/2024 12:42 PM COMPARISON: Pre Operative Images if available both CT/MRI or plain film CLINICAL INDICATION: Male, 69 years old with history of LEFT ANTERIOR HIP; TECHNIQUE: FL guidance operating room, XR Hip Limited LT, multiple fluoroscopic images provided for p rocedure. Total fluoroscopy time: 12 seconds Total submitted images to PACS: 2 DAP: 0.9305 mGym2 Gycm2 uGym2 cGycm2 or equivalent. FINDINGS: Fluoroscopic images during internal fixation/arthroplasty demonstrate hardware in appropriate positio n. Hardware appears intact. No immediate complication identified. IMPRESSION: 1. No evidence for intraoperative complication. 2. Please see the operative/procedural note for further details. [facility], , 11/03/2024 12:48 PM
[2024-11-03] MEDS: HYDROmorphone 0.5 MG/0.5 ML SYRINGE IVP PRN (13:11)
--- NOTE | 2024-11-03 14:15 | XR ---
EXAMINATION TYPE: XR Hip Limited LT DATE OF EXAM: 11/03/2024 1:25 PM COMPARISON: None. CLINICAL INDICATION: Male, 69 years old with history of Status post hip surgery, assess surgical rocio spangler, Postoperative evaluation TECHNIQUE: XR Hip Limited LT views were obtained FINDINGS: Noted are changes of total hip arthroplasty with femoral and acetabular components appearing well [place]ana. Alignment is anatomic. Postsurgical soft tissue changes are evident. IMPRESSION: Satisfactory postoperative alignment [facility], , 11/03/2024 2:12 PM
[2024-11-03] MEDS: SODIUM CHLORIDE 0.9% 1,000 ML IV SCH (16:14)
[2024-11-03] MEDS: HYDROcodone/APAP 7.5-325MG 1 EACH TAB PO PRN (17:48)
[2024-11-03] MEDS ORDERED: FAMOTIDINE 20 MG TAB PO PRN (18:20)
[2024-11-03] MEDS ORDERED: ARTIFICIAL TEARS-HYPROMELLOSE DROPS 15 ML BTL BOTH EYES PRN (18:20)
[2024-11-03] MEDS ORDERED: SENNOSIDES 8.6 MG TAB PO PRN (18:28)
--- NOTE | 2024-11-03 18:47 | P.CONS ---
History of Present Illness - Reason for Consult Consult date: 11/03/24 - Chief Complaint Medical management - History of Present Illness 69-year-old male with medical history of hypertension, paroxysmal atrial fibrillation status post ablation on Xarelto and Tikosyn, history of cardiac arrest presenting for recurrent dislocation of left total hip arthroplasty. Medicine was consulted for medical management. Patient has no complaints at this time. His only concern is regarding making sure that he receives his appropriate cardiac medications. He has no complaints of chest pain, shortness of breath. His pain is well-controlled. He is able to eat and is passing flatus. He is hemodynamically stable. INR is 1.2. Potassium is 4.7. Hip x-ray shows satisfactory postoperative alignment. All Systems reviewed and pertinent positives and negatives noted in HPI, all other symptoms are negative Gen: In NAD, non-toxic HEENT: normocephalic, atraumatic, hearing acuity is intant, mucous membranes moist CVS: perfusing all extremities well, no pitting edema, heart sounds are irregular, no murmurs Respiratory: symmetric chest expansion, no accessory muscle use, GI: soft, NTTP, ND, : no suprapubic tenderness, no CVA tenderness MSK/Derm: no rashes, cyanosis Neuro: CN II-XII intact, no motor weakness, Psych: cooperative, euthymic mood, judgment and insight is intact Assessment/plan: Paroxysmal atrial fibrillation on Tikosyn and Xarelto History of cardiac arrest -Resume patient's metoprolol, Tikosyn -Place patient on telemetry Hypertension -Resume home medications Left hip arthroplasty, status post -DVT prophylaxis and pain control per primary team Patient is full code Past Medical History Past Medical History: Atrial Fibrillation, Cancer, CVA/TIA, Hyperlipidemia, Hypertension, Osteoarthritis (OA), Prostate Disorder, Sleep Apnea/CPAP/BIPAP Additional Past Medical History / Comment(s): SEE H & P FOR CARDIOVASCULAR NOTES PROVIDED BY DR. BATES. MRI SHOWED MINI STROKE HAS SEVERE HEARING LOSS LT EAR 2012,USE CPAP,PROSTATE CA-NO RAD OR CHEM. rt arm does not straighten out History of Any Multi-Drug Resistant Organisms: None Reported Past Surgical History: Back Surgery, Cardiac Ablation, Hernia Repair, Orthopedic Surgery, Prostate Surgery Additional Past Surgical History / Comment(s): CERVICAL -FUSION C-3-C-7,RIGHT ELBOW, CARPAL TUNNEL, INGUINAL HERNIA , AND LOWER BACK FUSION. CARDIOVERSION IN JANUARY 2015. 06-28-15 CARDIAC ABLATION AND CARDIOVERSION(FOR AFIB), CARDIOVERSION,PROSTATECOMY 2008, loop recorder in place Past Anesthesia/Blood Transfusion Reactions: Postoperative Nausea & Vomiting (PONV) Additional Past Anesthesia/Blood Transfusion Reaction / Comm: SLOW TO AWAKEN X1. SISTER HAS PONV. no hx blood transfusion Smoking Status: Never smoker - Past Family History Father Family Medical History: Cancer, Myocardial Infarction (PR) Additional Family Medical History / Comment(s): LUNG CANCER, SMOKED SINCE AGE 13. Mother Family Medical History: Hypertension Additional Family Medical History / Comment(s): ENLARGED HEART. Medications and Allergies Home Medications Medication Instructions Recorded Confirmed Type Celecoxib [CeleBREX] 200 mg PO BID 01/24/15 11/03/24 History Ezetimibe/Simvastatin [Vytorin 1 tab PO HS 01/24/15 11/03/24 History 10-40 mg Tablet] Famotidine [Pepcid] 20 mg PO HS PRN 01/24/15 11/03/24 History Furosemide [Lasix] 20 mg PO DAILY 01/24/15 11/03/24 History Rivaroxaban [Xarelto] 20 mg PO HS 01/24/15 11/03/24 History Hypromellose [Artificial Tears] 1 drop BOTH EYES QID PRN 03/21/15 11/03/24 History Magnesium Chloride [Slow-Mag] 64 mg PO HS 01/09/16 11/03/24 History lisinopriL [Zestril] 10 mg PO BID 03/31/19 11/03/24 History Dofetilide [Tikosyn] 125 mcg PO BID 05/13/19 11/03/24 History Psyllium Husk (with Sugar) 6 gm PO BID PRN 08/18/20 11/03/24 History [Metamucil Powder] Vit C/E/Zn/Coppr/Lutein/Zeaxan 2 tab PO BID 03/10/21 11/03/24 History [Preservision Areds 2 Softgel] Acetaminophen [Tylenol Arthritis] 650 mg PO BID PRN 03/04/24 11/03/24 History HYDROcodone/APAP 7.5-325MG [[place] 1 - 2 tab PO Q6H PRN #32 tab 11/03/24 Rx 7.5-325] HYDROcodone/APAP 7.5-325MG [[place] 1 tab PO TID PRN 11/03/24 11/03/24 History 7.5-325] Metoprolol Tartrate [Lopressor] 12.5 mg PO BID 11/03/24 11/03/24 History Sennosides [Senokot] 17.2 mg PO DAILY PRN 11/03/24 11/03/24 History Allergies Allergy/AdvReac Type Severity Reaction Status Date / Time amiodarone AdvReac muscle Verified 11/03/24 18:42 tremors flecainide AdvReac bradycardia Verified 11/03/24 18:42 Physical Exam Osteopathic Statement: *. No significant issues noted on an osteopathic struct ural exam other than those noted in the History and Physical/Consult. Vitals: Vital Signs Temp Pulse Resp BP Pulse Ox 11/03/24 18:08 98.0 F 48 L 16 143/97 96 11/03/24 14:31 50 L 16 127/66 97 11/03/24 14:10 46 L 16 130/71 97 11/03/24 13:54 48 L 16 126/68 96 11/03/24 13:39 48 L 16 133/67 97 11/03/24 13:24 51 L 16 133/67 96 11/03/24 13:07 59 L 16 126/64 98 11/03/24 12:52 67 14 139/71 97 11/03/24 10:49 60 16 153/70 99 11/03/24 10:18 53 L 16 168/81 100 11/03/24 09:53 98.0 F 56 L 16 176/82 97 Intake and Output 11/03/24 11/03/24 11/03/24 06:59 14:59 22:59 Intake Total 1151 Output Total 350 Balance 801 Intake: IV 1151 Output: Estimated Blood Loss 350 Other: Weight 112.9 kg 112.9 kg Results CBC & Chem 7: 11/03/24 10:05 Labs: Abnormal Lab Results - Last 24 Hours (Table) 11/03/24 Range/Units 10:35 PT 13.0 H (10.0-12.5) sec INR 1.2 H (<1.2)
[2024-11-03] MEDS: MAGNESIUM OXIDE 400 MG TAB PO SCH (20:23)
[2024-11-03] MEDS: ATORVASTATIN 20 MG TAB PO SCH (20:23)
[2024-11-03] MEDS: METOPROLOL TARTRATE 12.5 MG TAB PO SCH (20:23)
[2024-11-03] MEDS: DOFETILIDE 125 MCG CAP PO SCH (20:24)
[2024-11-03] MEDS: EZETIMIBE 10 MG TAB PO SCH (20:24)
[2024-11-03] MEDS: VIT A,C & E-LUTEIN-MINERALS 1 EACH TAB PO SCH (20:24)
[2024-11-03] MEDS: lisinopriL 10 MG TAB PO SCH (20:24)
[2024-11-03] MEDS: SENNOSIDES-DOCUSATE SODIUM 1 EACH TAB PO SCH (20:24)
[2024-11-04] MEDS: ACETAMINOPHEN TAB 325 MG TAB PO PRN (06:34)
--- NOTE | 2024-11-04 08:07 | P.DS ---
Providers Date of admission: 11/03/24 09:24 Expected date of discharge: 11/04/24 Attending physician: Vik Bernardo Consults: 11/03/24 10:49 Consult Physician Routine Consulting Provider: Zuleyka Riggs Consult Reason/Comments: medical management Do you want consulting provider notified?: Yes Primary care physician: Carlos Akhtar - Discharge Diagnosis(es) (1) Recurrent dislocation of left hip joint prosthesis Current Visit: Yes Status: Acute Hospital Course: This is a 69-year-old male with known history of recurrent dislocation of his left total hip arthroplasty. The patient presented for evaluation as an outpatient. After discussion and consideration patient elects to proceed with revision left total hip arthroplasty with conversion to a dual mobility liner. The patient is seen preoperatively by Dr. Bernardo and medically cleared for surgery by their primary care physician. Patient is admitted to [facility] on 11/03/2024 for revision left total hip arthroplasty with conversion to a dual mobility liner. The procedure is performed without complication or sequelae. The patient is doing well postoperatively. Labs and vital signs are stable on day of discharge. On day of discharge patient's hip incision is healing well. There is minimal erythema. There is no drainage noted at this time. There is minimal soft tissue swelling to the hip and thigh. Patient has full foot and ankle motion without difficulty or pain. Calf is soft and nontender to palpation. Neurovascular status to the left lower extremity is intact. Patient is discharged home in good condition. Please see med rec for accurate list of home medications. Plan - Discharge Summary Discharge Rx Participant: No New Discharge Prescriptions: No Action Rivaroxaban [Xarelto] 20 mg PO HS Ezetimibe/Simvastatin [Vytorin 10-40 mg Tablet] 1 tab PO HS Famotidine [Pepcid] 20 mg PO HS PRN PRN Reason: acid reflux Furosemide [Lasix] 20 mg PO DAILY Celecoxib [CeleBREX] 200 mg PO BID Hypromellose [Artificial Tears] 1 drop BOTH EYES QID PRN PRN Reason: dry eyes Magnesium Chloride [Slow-Mag] 64 mg PO HS lisinopriL [Zestril] 10 mg PO BID Dofetilide [Tikosyn] 125 mcg PO BID Psyllium Husk (with Sugar) [Metamucil Powder] 6 gm PO BID PRN PRN Reason: Constipation Acetaminophen [Tylenol Arthritis] 650 mg PO BID PRN PRN Reason: Pain HYDROcodone/APAP 7.5-325MG [[place] 7.5-325] 1 tab PO TID PRN PRN Reason: Pain Metoprolol Tartrate [Lopressor] 12.5 mg PO BID Sennosides [Senokot] 17.2 mg PO DAILY PRN PRN Reason: Constipation Vit C/E/Zn/Coppr/Lutein/Zeaxan [Preservision Areds 2 Softgel] 2 tab PO BID Discharge Medication List Celecoxib [CeleBREX] 200 mg PO BID 01/24/15 [History] Ezetimibe/Simvastatin [Vytorin 10-40 mg Tablet] 1 tab PO HS 01/24/15 [History] Famotidine [Pepcid] 20 mg PO HS PRN 01/24/15 [History] Furosemide [Lasix] 20 mg PO DAILY 01/24/15 [History] Rivaroxaban [Xarelto] 20 mg PO HS 01/24/15 [History] Hypromellose [Artificial Tears] 1 drop BOTH EYES QID PRN 03/21/15 [History] Magnesium Chloride [Slow-Mag] 64 mg PO HS 01/09/16 [History] lisinopriL [Zestril] 10 mg PO BID 03/31/19 [History] Dofetilide [Tikosyn] 125 mcg PO BID 05/13/19 [History] Psyllium Husk (with Sugar) [Metamucil Powder] 6 gm PO BID PRN 08/18/20 [History] Vit C/E/Zn/Coppr/Lutein/Zeaxan [Preservision Areds 2 Softgel] 2 tab PO BID 03/10/21 [History] Acetaminophen [Tylenol Arthritis] 650 mg PO BID PRN 03/04/24 [History] HYDROcodone/APAP 7.5-325MG [[place] 7.5-325] 1 tab PO TID PRN 11/03/24 [History] Metoprolol Tartrate [Lopressor] 12.5 mg PO BID 11/03/24 [History] Sennosides [Senokot] 17.2 mg PO DAILY PRN 11/03/24 [History] Follow up Appointment(s)/Referral(s): Vik Bernardo DO [Doctor of Osteopathic Medicine] - 2 Weeks Activity/Diet/Wound Care/Special Instructions: Weightbearing as tolerated with walker. Leave dressing intact. Dressing may be removed by home care nurse or by patient in 7 days. Then change dressing twice daily until follow up. May shower with initial dressing intact and after removal. If dressing become saturated, please remove. Please resume Xarelto. Patient has [place] at home for postoperative pain management. Recommend use of compression stockings daily until follow up to help prevent swelling and blood clots. May remove at night before sleeping. Please follow-up with [facility] in 2 weeks and call with any questions or concerns, . Discharge Disposition: HOME WITH HOME HEALTH SERVICES
[2024-11-04 08:46] LABS: Basophils # (A) 0.01 X 10*3/uL (0.00-0.10); Basophils % (A) 0.1 %; Eosinophils # (A) 0 X 10*3/uL (0.04-0.35); Eosinophils % (A) 0 %; HGB 11.5 g/dL (13.0-17.0); Lymphocytes # (A) 1.15 X 10*3/uL (0.90-5.00); Lymphocytes % (A) 8.7 %; MCH 29.3 pg (27.0-32.0); MCHC 31.1 g/dL (32.0-37.0); MCV 94.1 FL (80.0-97.0); Mean Platelet Volume 9.4 FL (9.5-12.2); Monocytes # (A) 1.43 X 10*3/uL (0.20-1.00); Monocytes % (A) 10.8 %; NRBC Per 100 WBC 0 X 10*3/uL (0.00-0.01); Neutrophils # (A) 10.61 X 10*3/uL (1.80-7.70); Neutrophils % (A) 79.9 %; Platelet Count 213 X 10*3/uL (140-440); RBC 3.93 X 10*6/uL (4.40-5.60); WBC 13.27 X 10*3/uL (4.50-10.00)
[2024-11-04 09:07] VITALS: BP 132/78; PULSE 56; RESP 17; TEMP 97.7
--- NOTE | 2024-11-04 13:43 | P.PN ---
Subjective Progress Note Date: 11/04/24 Subjective: Seen and examined at bedside. No acute events overnight. Pertinent positives and negatives as discussed above, a complete review of systems was performed and all other systems are negative. Vitals Signs Reviewed. General: Nontoxic, no distress, appears at stated age Derm: Warm, dry, dressing clean, dry, intact Head: Atraumatic, normocephalic, symmetric Eyes: EOMI, no lid lag, anicteric sclera Mouth: No lip lesion, mucus membranes moist Cardiovascular: S1S2 irregular, no murmur Lungs: CTA bilateral, no rhonchi, no rales, no accessory muscle use Abdominal: Soft, nontender to palpation, no guarding, no appreciable organomegaly Ext: No gross muscle atrophy, no edema, no contractures Neuro: CN II-XI grossly intact, no focal neuro deficits Psych: Alert, oriented, appropriate affect Data Reviewed Today: Pertinent Labs: WBC 13.27, hemoglobin 11.5 Imaging: No new imaging Assessment and Plan: Status post left hip arthroplasty Leukocytosis, anticipated outcome of surgery Acute blood loss anemia, anticipated outcome of surgery -Pain medication and bowel regimen per primary service Paroxysmal atrial fibrillation -Continue Tikosyn 125 mcg twice daily, Xarelto 20 nightly, metoprolol tartrate 12.5 twice daily Dyslipidemia -Continue ezetimibe 10, simvastatin 40 Hypertension -Continue lisinopril 10 twice daily Patient is medically optimized for discharge Thank you for allowing us to participate in the care of this pleasant patient. Do not hesitate to contact us with questions. Someone can be reached from the [facility] hospitalist group all hours of the day at [phone] or via perfect serve. Objective - Vital Signs Vital signs: Vital Signs Temp 97.7 F 11/04/24 07:05 Pulse 56 L 11/04/24 07:05 Resp 17 11/04/24 07:05 BP 132/78 11/04/24 07:05 Pulse Ox 97 11/04/24 07:05 FiO2 Intake & Output 11/03/24 11/04/24 11/04/24 18:59 06:59 18:59 Intake Total 1151 Output Total 350 Balance 801 Weight 112.9 kg Intake: IV 1151 Output: Estimated Blood Loss 350 Other: # Voids 2 3 - Labs CBC & Chem 7: 11/04/24 02:45 11/03/24 10:05 Labs: Abnormal Lab Results - Last 24 Hours (Table) 11/04/24 Range/Units 02:45 WBC 13.27 H (4.50-10.00) X 10*3/uL RBC 3.93 L (4.40-5.60) X 10*6/uL Hgb 11.5 L (13.0-17.0) g/dL Hct 37.0 L (39.6-50.0) % MCHC 31.1 L (32.0-37.0) g/dL MPV 9.4 L (9.5-12.2) FL Immature Gran # 0.07 H (0.00-0.04) X 10*3/uL Neutrophils # 10.61 H (1.80-7.70) X 10*3/uL Monocytes # 1.43 H (0.20-1.00) X 10*3/uL Eosinophils # 0 L (0.04-0.35) X 10*3/uL
[2024-11-04] MEDS ORDERED: RIVAROXABAN 20 MG TAB PO SCH (17:30)
== END 2024-11-04 10:39 | disposition home health service (06) | DRG 467 ==
LOC: 2ORMAIN 11-03 09:24 → 4SSUR 11-03 14:24
PROVIDERS: ADMIT Orthopaedic Surgery; ATTEND Orthopaedic Surgery
PROC: 0SUE09Z Supplement Left Hip Joint, Acetabular Surface with Liner, Open Approach (ICD-10-PCS; 2024-11-03)
PROC: 3E0T3BZ Introduction of Anesthetic Agent into Peripheral Nerves and Plexi, Percutaneous Approach (ICD-10-PCS; 2024-11-03)
PROC: 8E0YXBF Computer Assisted Procedure of Lower Extremity, With Fluoroscopy (ICD-10-PCS; 2024-11-03)
PROC: 0SPB09Z Removal of Liner from Left Hip Joint, Open Approach (ICD-10-PCS; principal; 2024-11-03 11:10)
DX: T84.021A Dislocation of internal left hip prosthesis, initial encounter (principal); D62 Acute posthemorrhagic anemia; I48.0 Paroxysmal atrial fibrillation; I10 Essential (primary) hypertension; H91.92 Unspecified hearing loss, left ear; M19.90 Unspecified osteoarthritis, unspecified site; E78.5 Hyperlipidemia, unspecified; D72.829 Elevated white blood cell count, unspecified; Z88.8 Allergy status to other drugs, medicaments and biological substances; Y79.2 Prosthetic and other implants, materials and accessory orthopedic devices associated with adverse incidents; Z79.01 Long term (current) use of anticoagulants; Z79.1 Long term (current) use of non-steroidal anti-inflammatories (NSAID); Z79.899 Other long term (current) drug therapy; Z86.73 Personal history of transient ischemic attack (TIA), and cerebral infarction without residual deficits; Z98.1 Arthrodesis status; Z86.74 Personal history of sudden cardiac arrest; Z85.46 Personal history of malignant neoplasm of prostate; Z82.49 Family history of ischemic heart disease and other diseases of the circulatory system; Z95.818 Presence of other cardiac implants and grafts
CPT/HCPCS: 64999; 73501; 84132; 85025; 85610

== ENCOUNTER → 2024-10-22 | Outpatient (CLI) | payer MEDICARE ==
[2024-10-22 16:01] LABS: Appearance,Urine Clear (Clear); Bilirubin,Urine Negative (Negative); Blood,Urine Negative (Negative); Color,Urine Colorless; Glucose,Urine (UA) Negative (Negative); Ketones,Urine Negative (Negative); Leukocyte Esterase,Urine Negative (Negative); Mucus,Urine Rare /hpf; Nitrite,Urine Negative (Negative); Protein,Urine 1+ (Negative); RBC,Urine <1 /hpf (0-5); Specific Gravity,Urine 1.019 (1.001-1.035); Urobilinogen,Urine <2.0 mg/dL (<2.0); WBC,Urine 1 /hpf (0-5)
[2024-10-22 16:11] LABS: INR 1.3 (<1.2); Partial Thromboplastin Time 24.3 sec (22.0-30.0); Prothrombin Time 13.3 sec (10.0-12.5)
[2024-10-22 19:12] LABS: Basophils # (A) 0.04 X 10*3/uL (0.00-0.10); Basophils % (A) 0.8 %; Eosinophils # (A) 0.12 X 10*3/uL (0.04-0.35); Eosinophils % (A) 2.4 %; HCT 39.1 % (39.6-50.0); HGB 12.4 g/dL (13.0-17.0); Lymphocytes # (A) 1.41 X 10*3/uL (0.90-5.00); Lymphocytes % (A) 27.6 %; MCH 29.5 pg (27.0-32.0); MCHC 31.7 g/dL (32.0-37.0); MCV 93.1 FL (80.0-97.0); Mean Platelet Volume 10.2 FL (9.5-12.2); Monocytes # (A) 0.62 X 10*3/uL (0.20-1.00); Monocytes % (A) 12.2 %; NRBC Per 100 WBC 0 X 10*3/uL (0.00-0.01); Neutrophils # (A) 2.88 X 10*3/uL (1.80-7.70); Neutrophils % (A) 56.4 %; Platelet Count 179 X 10*3/uL (140-440); RDW 14.2 % (11.5-14.5)
[2024-10-22 20:33] LABS: ALT 16 U/L (10-49); AST 32 U/L (14-35); Albumin 4.4 g/dL (3.8-4.9); Albumin/Globulin Ratio 1.52 Ratio (1.60-3.17); Alkaline Phosphatase 74 U/L (41-126); BUN/Creat Ratio 23.08 Ratio (12.00-20.00); Blood Urea Nitrogen 27.7 mg/dL (9.0-27.0); Calcium 9.3 mg/dL (8.7-10.3); Carbon Dioxide 22.1 mmol/L (21.6-31.8); Chloride 108 mmol/L (96-109); Globulin 2.9 g/dL (1.6-3.3); Glucose 160 mg/dL (70-110); Potassium 5.5 mmol/L (3.5-5.5); Sodium 142 mmol/L (135-145); Total Bilirubin 0.5 mg/dL (0.3-1.2); Total Protein 7.3 g/dL (6.2-8.2)
== END | disposition home or self-care (01) ==
LOC: LABWHC1 15:18
PROVIDERS: ATTEND Orthopaedic Surgery
DX: Z01.818 Encounter for other preprocedural examination (principal); Z22.322 Carrier or suspected carrier of Methicillin resistant Staphylococcus aureus; M16.12 Unilateral primary osteoarthritis, left hip
CPT/HCPCS: 36415; 80053; 81001; 83036; 85025; 85610; 85730; 86850; 86900; 86901; 87070

== ENCOUNTER 2024-10-23 13:59 | Emergency (ER) | payer MEDICARE ==
[2024-10-23 14:07] VITALS: TEMP 98
--- NOTE | 2024-10-23 14:17 | ED ---
General Adult HPI - General Chief complaint: Extremity Problem,Nontraumatic Stated complaint: L Poss Hip Dislocation Time Seen by Provider: 10/23/24 14:00 Source: patient, EMS, RN notes reviewed, old records reviewed Mode of arrival: EMS - History of Present Illness Initial comments: This is a 69-year-old male who presents to the emergency department he has stated that he has had a left hip replacement in the past and since then he has had his hip about 5 times. Patient states today it came out when he barely moved. Patient is having quite a bit of left hip pain currently and some muscle spasms. Patient denies any fall or blunt trauma to the area. Patient denies any other injuries at this time or any other problems at this time. - Related Data Home Medications Medication Instructions Recorded Confirmed Celecoxib [CeleBREX] 200 mg PO BID 01/24/15 09/23/24 Ezetimibe/Simvastatin [Vytorin 1 tab PO HS 01/24/15 09/23/24 10-40 mg Tablet] Famotidine [Pepcid] 20 mg PO DAILY 01/24/15 09/23/24 Furosemide [Lasix] 20 mg PO QAM 01/24/15 09/23/24 Rivaroxaban [Xarelto] 20 mg PO HS 01/24/15 09/23/24 Hypromellose [Artificial Tears] 1 drop BOTH EYES DAILY PRN 03/21/15 09/23/24 Magnesium Chloride [Slow-Mag] 64 mg PO HS 01/09/16 09/23/24 lisinopriL [Zestril] 10 mg PO BID 03/31/19 09/23/24 Dofetilide [Tikosyn] 125 mcg PO BID 05/13/19 09/23/24 Psyllium Husk (with Sugar) 1 dose PO BID PRN 08/18/20 09/23/24 [Metamucil Powder] Vit C/E/Zn/Coppr/Lutein/Zeaxan 2 each PO BID 03/10/21 09/23/24 [Preservision Areds 2 Softgel] Acetaminophen [Tylenol Arthritis] 650 mg PO BID 03/04/24 09/23/24 Enalapril [Vasotec] 10 mg PO BID 03/04/24 09/23/24 Metoprolol Tartrate [Lopressor] 12.5 mg PO BID 03/04/24 09/23/24 Previous Rx's Medication Instructions Recorded Cyclobenzaprine [Flexeril] 10 mg PO TID PRN #90 tab 03/17/21 HYDROcodone/APAP 7.5-325MG [[place] 1 - 2 tab PO Q6H PRN #32 tab 03/10/24 7.5-325] Sennosides [Senokot] 2 tab PO DAILY PRN #60 tablet 03/10/24 Allergies Allergy/AdvReac Type Severity Reaction Status Date / Time amiodarone AdvReac muscle Verified 10/23/24 14:07 tremors flecainide AdvReac bradycardia Verified 10/23/24 14:07 Review of Systems ROS Statement: Those systems with pertinent positive or pertinent negative responses have been documented in the HPI. ROS Other: All systems not noted in ROS Statement are negative. Past Medical History Past Medical History: Atrial Fibrillation, Cancer, CVA/TIA, Hypertension, Osteoarthritis (OA), Prostate Disorder, Sleep Apnea/CPAP/BIPAP Additional Past Medical History / Comment(s): SEE H & P FOR CARDIOVASCULAR NOTES PROVIDED BY DR. BATES. MRI SHOWED MINI STROKE HAS SEVERE HEARING LOSS LT EAR 2012,USE CPAP,PROSTATE CA-NO RAD OR CHEM. rt arm does not straighten out History of Any Multi-Drug Resistant Organisms: None Reported Past Surgical History: Joint Replacement, Orthopedic Surgery Additional Past Surgical History / Comment(s): CERVICAL -FUSION C-3-C-7,RIGHT ELBOW, CARPAL TUNNEL, INGUINAL HERNIA , AND LOWER BACK FUSION. CARDIOVERSION IN JANUARY 2015. 06-28-15 CARDIAC ABLATION AND CARDIOVERSION(FOR AFIB), CARDIOVERSION,PROSTATECOMY 2007 Past Anesthesia/Blood Transfusion Reactions: Postoperative Nausea & Vomiting (PONV) Additional Past Anesthesia/Blood Transfusion Reaction / Comment(s): SLOW TO AWAKEN X1. SISTER HAS PONV. Past Psychological History: No Psychological Hx Reported Smoking Status: Never smoker Past Alcohol Use History: None Reported Past Drug Use History: None Reported - Past Family History Father Family Medical History: Cancer, Myocardial Infarction ([place]) Additional Family Medical History / Comment(s): LUNG CANCER, SMOKED SINCE AGE 13. Mother Family Medical History: Hypertension Additional Family Medical History / Comment(s): ENLARGED HEART. General Exam - General Exam Comments Initial Comments: GENERAL: Patient is well-developed and well-nourished. Patient is nontoxic and well- hydrated and is in mild distress. ENT: Neck is soft and supple. No significant lymphadenopathy is noted. Oropharynx is clear. Moist mucous membranes. Neck has full range of motion without eliciting any pain. EYES: The sclera were anicteric and conjunctiva were pink and moist. Extraocular movements were intact and pupils were equal round and reactive to light. E yelids were unremarkable. PULMONARY: Unlabored respirations. Good breath sounds bilaterally. No audible rales rhonchi or wheezing was noted. CARDIOVASCULAR: There is a regular rate and rhythm without any murmurs gallops or rubs. ABDOMEN: Soft and nontender with normal bowel sounds. SKIN: Skin is clear with no lesions or rashes and otherwise unremarkable. NEUROLOGIC: Patient is alert and oriented x3. Cranial nerves II through XII are grossly intact. Motor and sensory are also intact. Normal speech, volume and content. Symmetrical smile. MUSCULOSKELETAL: Patient has pain upon palpation of left hip unable to move it secondary to the pain LYMPHATICS: No significant lymphadenopathy is noted PSYCHIATRIC: Normal psychiatric evaluation. Course Vital Signs 10/23/24 10/23/24 10/23/24 14:02 15:46 15:58 Temperature 98.0 F Pulse Rate 54 L 53 L 56 L Respiratory 20 18 16 Rate Blood Pressure 182/93 154/100 178/100 O2 Sat by Pulse 98 100 98 Oximetry 10/23/24 10/23/24 10/23/24 16:00 16:05 16:22 Temperature Pulse Rate 52 L 52 L 53 L Respiratory 16 16 17 Rate Blood Pressure 145/86 149/96 142/89 O2 Sat by Pulse 98 99 97 Oximetry Procedures - Orthopedic Joint Reduction Joint #1 Consent Obtained: verbal consent Side: left Analgesia: procedural sedation Technique Used: traction/counter-traction Post-Reduction Neuro Exam: intact Post-Reduction Vascular Exam: intact Post Reduction X-Ray Obtained: Yes Post Reduction X-Ray Results: reduced Splint Applied: Yes Patient Tolerated Procedure: well - Procedural Sedation *Procedural Sedation Start Time: 16:55 *Procedural Sedation Stop Time: 16:35 *Risks,benefits, and alternative therapies discussed?: Yes *Patient indicates understanding of risk/benefit discussion?: Yes *Indications: fracture/dislocation reduction *Previous Adverse Reaction to Anesthesia/Sedation?: No *ASA Class: II *Mallampati Airway Score: 2 Preparation: security monitor applied, pulse oximeter, supplemental O2 applied IV Propofol Dose (mgs): 75 Complications: none Patient Tolerated Procedure: well Medical Decision Making - Medical Decision Making Was pt. sent in by a medical professional or institution (VENKAT Garcia, REEXAMINER, urgent care, hospital, or [place] [facility]...) When possible be specific @ -No Did you speak to anyone other than the patient for history (EMS, parent, family, police, friend...)? What history was obtained from this source @ -No Did you review nursing and triage notes (agree or disagree)? Why? @ -I reviewed and agree with nursing and triage notes Were old charts reviewed (outside hosp., previous admission, EMS record, old EKG, old radiological studies, urgent care reports/EKG's, [place] [facility] records)? Report findings @ -No old charts were reviewed Differential Diagnosis? @ -MDM differential EKG interpreted by me (3pts min.). @ -As above X-rays interpreted by me (1pt min.). @ -X-ray of the left hip shows dislocation of the prosthesis. After the reduction the hip was in place. CT interpreted by me (1pt min.). @ -None done U/S interpreted by me (1pt. min.). @ -None done What testing was considered but not performed or refused? (CT, X-rays, U/S, labs)? Why? @ -None What meds were considered but not given or refused? Why? @ -Follow-up with Did you discuss the management of the patient with other professionals (professionals i.e. VENKAT Garcia, REEXAMINER, lab, RT, psych nurse, psychosocial rehabilitation counselor, pole classifier, teacher, airframe technical officer, director of casework)? Give summary @ -Did have Was smoking cessation discussed for >3mins.? @ -No Was critical care preformed (if so, how long)? @ -No Were there social determinants of health that impacted care today? How? (Homelessness, low income, unemployed, alcoholism, drug addiction, transportation, low edu. Level, literacy, decrease access to med. care, shelter, rehab)? @ -No Was there de-escalation of care discussed even if they declined (Discuss DNR or withdrawal of care, Hospice)? DNR status @ -No What co-morbidities impacted this encounter? (DM, HTN, Smoking, COPD, CAD, Cancer, CVA, ARF, Chemo, Hep., AIDS, mental health diagnosis, sleep apnea, morbid obesity)? @ -None Was patient admitted / discharged? Hospital course, mention meds given and route, prescriptions, significant lab abnormalities, going to OR and other pertinent info. @ -I used conscious sedation with propofol and reduced the hip and x-rays show a hip that is now in place. Will be discharged home to follow-up with orthopedics Undiagnosed new problem with uncertain prognosis? @ -No Drug Therapy requiring intensive monitoring for toxicity (Heparin, Nitro, Insulin, Cardizem)? @ -No Were any procedures done? @ -No Diagnosis/symptom? @ -Left hip dislocation Acute, or Chronic, or Acute on Chronic? @ -Acute Uncomplicated (without systemic symptoms) or Complicated (systemic symptoms)? @ -Complicate Side effects of treatment? @ -No Exacerbation, Progression, or Severe Exacerbation? @ -No Poses a threat to life or bodily function? How? (Chest pain, [place], [place], pneumonia, PE, COPD, DKA, ARF, appy, cholecystitis, CVA, Diverticulitis, Homicidal, Suicidal, threat to staff... and all critical care pts) @ -No Disposition Clinical Impression: Hip dislocation, left Disposition: HOME SELF-CARE Condition: Good Additional Instructions: Patient follow-up with orthopedic Is patient prescribed a controlled substance at d/c from ED?: No Referrals: Rui Akhtar MD [Primary Care Provider] - 1-2 days Time of Disposition: 16:52
[2024-10-23] MEDS: HYDROmorphone 0.5 MG/0.5 ML SYRINGE IVP STA (15:12)
--- NOTE | 2024-10-23 15:24 | XR ---
EXAMINATION TYPE: XR Hip 2 views LT and AP Pelvis DATE OF EXAM: 10/23/2024 2:57 PM COMPARISON: 05/25/2024 CLINICAL INDICATION: Male, 69 years old with history of Left hip pain, , FINDINGS: Partially visualized posterior and interbody lumbar fusion along with lateral osseous fusion changes. Multiple surgical clips along both sides of the pelvis. Partially visualized right total hip arthrop lasty. There is also a left hip total arthroplasty that shows superior-posterior dislocation of the p rosthesis. No periprosthetic fracture seen. IMPRESSION: Dislocated left hip prosthesis. No periprosthetic fracture seen. [facility], , 10/23/2024 3:22 PM
[2024-10-23] MEDS: PROPOFOL 10 MG/ML 20 ML VIAL IV ONE (15:53)
--- NOTE | 2024-10-23 16:17 | XR ---
EXAMINATION TYPE: XR Hip Limited LT DATE OF EXAM: 10/23/2024 4:10 PM COMPARISON: Same day CLINICAL INDICATION: Male, 69 years old with history of post reduction; PHH, pain TECHNIQUE: XR Hip Limited LT; Frontal view FINDINGS/IMPRESSION: 1. Limited single view demonstrates femoral head component situated over the expected location of th e acetabulum. 2. No evidence of fracture. Hardware appears intact. 3. Postsurgical changes with surgical clips present projecting over the pelvis. [facility], , 10/23/2024 4:15 PM
[2024-10-23 17:20] VITALS: BP 154/92; PULSE 53; RESP 20
== END 2024-10-23 17:00 | disposition home or self-care (01) ==
LOC: EC 13:59
DX: T84.021A Dislocation of internal left hip prosthesis, initial encounter (principal); Z88.8 Allergy status to other drugs, medicaments and biological substances
CPT/HCPCS: 99284; 96374; 96375; 99152; 73501; 73502; 27265; J3360; J2704; J1171

== ENCOUNTER → 2025-06-09 | Outpatient (CLI) | payer MEDICARE ==
[2025-06-09 20:55] LABS: Anion Gap 11.10 mmol/L (4.00-12.00); BUN/Creat Ratio 16.30 Ratio (12.00-20.00); Blood Urea Nitrogen 16.3 mg/dL (9.0-27.0); Calcium 9.4 mg/dL (8.7-10.3); Carbon Dioxide 22.9 mmol/L (21.6-31.8); Chloride 104 mmol/L (96-109); Glucose 111 mg/dL (70-110); Magnesium 2.0 mg/dL (1.5-2.4); Potassium 4.9 mmol/L (3.5-5.5); Sodium 138 mmol/L (135-145)
== END | disposition home or self-care (01) ==
LOC: LABWHC1 15:53
PROVIDERS: ATTEND Internal Medicine Clinical Cardiac Electrophysiology
DX: I48.91 Unspecified atrial fibrillation (principal)
CPT/HCPCS: 36415; 80048; 83735